=== PATIENT | female | born 1975 | race Caucasian/White ===

== ENCOUNTER → 2021-04-19 | Outpatient (CLI) | payer OTHER ==
[~2021-04-19] MED LIST: ALBU0.084; ALPR2TAB6; AMPH1TAB78; DIAZ5TAB3; HYDR-2595; PROAIR HFA 90 MCG INHALER; TRAM50TA2
== END | disposition home or self-care (01) ==
LOC: LAB 11:57
PROVIDERS: ATTEND Physician Assistant
DX: Z20.822 Contact with and (suspected) exposure to COVID-19 (principal)
CPT/HCPCS: C9803; U0003

== ENCOUNTER 2025-05-25 18:16 | Inpatient (IN) | payer MEDICAID, OTHER ==
[~2025-05-25] VITALS: Ht 165.1 cm; Wt 38.5 kg
[~2025-05-25 18:16] MED LIST changes: -AMPH1TAB78; +[UNRECOGNIZED DRUG - CODE]
--- NOTE | 2025-05-25 18:27 | ED.PDOC ---
Altered Mental Status HPI Comments HPI: Poor Historian. 30-year-old homeless female brought in by ambulance. Some good Anabaptism found the patient asleep in a small wagon. He called 911. The ekg monitor was at the scene found the patient to be altered and naked and covered in feces. Ambulance brought her here for further evaluation. Patient is not cooperative and is not answering most of our questions. Patient however is moving all four extremities and sometimes follows commands. Patient has very poor hygiene and is covered in feces and completely naked. Past Medical History: Unknown Past Surgical History: Unknown REVIEW OF SYSTEMS: Limited given the patient's altered mental status. CONSTITUTIONAL: Denies acute: fever, diaphoresis, chills, HEAD: Denies acute: headache, photophobia Eyes: Denies acute: Double vision, vision loss, eye pain, eye discharge. EARS: Denies acute: tinnitus, hearing loss, ear discharge, ear pain, THROAT: Denies acute: sore throat, swelling, difficulty swallowing , pain with swallowing, change in voice. NECK: Denies acute: neck pain, neck swelling, stiff neck. HEART: Denies acute : chest pain, palpitations, LUNGS: Denies acute: SOB, wheezing, cough, hemoptysis ABDOMEN: Denies acute: abdominal pain, Nausea, Vomiting, diarrhea, melena , hematemesis, hematochezia SKIN: Denies acute: rash, redness, lesions, itchiness. EXTREMITIES: Denies acute: calf pain, numbness, tingling, weakness, denies pain in extremity. Denies acute: Low back pain. Neuro: Denies acute: focal neurological deficit, motor or sensory focal neurological deficit, tremors, seizure like activity, loss of bowel or bladder function, cauda equina like symptoms. : Denies acute: dysuria, hematuria, flank pain, increase in urinary frequency. PSYCH: Denies acute: hallucination, suicidal ideation, homicidal ideation. FEMALE: Denies acute: abnormal vaginal bleeding, foul odor, unusual discharge. PHYSICAL EXAM: General: -----mild to moderate---acute distress, awake and alert. Head: normocephalic, atraumatic. Neck: supple, trachea is midline, no swelling. Throat: Normal phonation. Eyes:, no erythema, no purulent discharge, no proptosis, no icterus. Heart: regular rate, regular rhythm, no significant murmur appreciated. Lungs: no apparent respiratory distress, No wheezing, no rhonchi, no crackles. No stridors Clear to auscultation bilaterally. Abdomen: non tender to palpation, non distended, soft, no guarding, no rebound, + bowel sounds. Neuro: Awake, Alert, oriented to name, self, situation, follows commands GCS=15. Speech is normal. Skin: no petechia, no purpura, no cyanosis, non-pale, not jaundice. Lower extremities: --no - Pitting edema no deformity, no focal swelling, no calf TTP. Makes eye contact. moves all four extremities. Face: no apparent facial droop. No nuchal rigidity, Kernig's sign, Brudzinski's sign, no meningeal signs. ED COURSE: DISCLAIMER: This medical document was created using an electronic medical record system with voice recognition software and computerized dictation system. Although this document has been carefully reviewed, there might still be some phonetic and typographical errors. Occasional wrong-word or "sound-alike" substitutions may have occurred due to the inherent limitations of voice recognition software. These areas are purely typographical due to imperfections of the software programs and do not reflect any compromise in the patient's medical care. Please read the chart carefully and recognize, using context, where these substitutions have occurred. Time Seen by MD: 18:26 Reviewed Notes: Medications, Allergies Allergies: Coded Allergies: Ibuprofen (Verified Allergy, Mild, SWELLING, 11/11/12) Home Meds Reported Medications [Albuterol Sul0.083 %] (Albuterol Sulfate) 0.083 % NEB No Conflict Check, % 11/11/12 [Tramadol Hcl50 Mg] (Tramadol Hcl) 50 MG TAB No Conflict Check, MG 11/11/12 [Proair Hfa 90 Mcg Inhaler] No Conflict Check 11/11/12 [Diazepam5 Mg] (Diazepam) 5 MG TAB No Conflict Check, MG 11/11/12 [Hydrocodone/Ace1 Tab] (Hydrocodone/Acetaminophen) 1 TAB TAB No Conflict Check, TAB 1/29/13 [Alprazolam2 Mg] (Alprazolam) 2 MG TAB No Conflict Check, MG 11/11/12 [Amphetamine/Dex30 Mg] (Amphetamine/Dextroampheta) 30 MG TAB No Conflict Check, MG 11/11/12 Information Source: Patient, Emergency Med Personnel Mode of Arrival: EMS Past Medical History PAST MEDICAL HISTORY: Unknown Surgical History: Unknown 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 Was a procedure done?: No Differential Diagnosis (ALOC) Differential Diagnosis: Other (DDX include CVA, TGA, cerebellar ischemia/infarct, carotid stenosis, Intracranial mass/infection/bleed, encephalopathy, electrolyte abnormality, thyroid disease, hydrocephalus, hypoglycemia, drug toxicity, cardiac arrhythmia, seizure, infection in the elder ly, Hyperammonemia., kidney failure., sepsis.) X-Ray, Labs, Meds, VS Vital Signs Date Time Temp Pulse Resp B/P (MAP) Pulse Ox O2 Delivery O2 Flow Rate FiO2 05/26/25 03:00 120 139/80 (99) 91 05/26/25 02:30 133 166/94 (118) 97 05/26/25 01:30 156/98 (117) 05/25/25 23:20 72 18 93/46 (62) 98 05/25/25 22:00 77 19 97/52 (67) 05/25/25 20:30 100.3 94 19 104/54 (71) 98 100.3 05/25/25 19:30 Room Air* 0 21 05/25/25 18:22 98.1 99 18 142/93 98 98.1 Lab Test 05/25/25 22:00 05/25/25 19:48 05/25/25 18:38 05/25/25 16:45 Range/Units Stool for White Cells None seen Troponin I High Sensitivity < 3 L < 3 L </=34 ng/L White Blood Count 8.0 4.4-10.8 10^3/uL Red Blood Count 4.68 4.0-5.20 10^6/uL Hemoglobin 12.9 12.2-16.2 g/dL Hematocrit 39.4 36.0-46.0 % Mean Corpuscular Volume 84.1 80.0-100.0 fL Mean Corpuscular Hemoglobin 27.4 L 28.0-32.0 pg Mean Corpuscular Hemoglobin Concent 32.6 32.0-36.0 g/dL Red Cell Distribution Width 16.2 H 11.8-14.3 % Platelet Count 518 H 140-450 10^3/uL Mean Platelet Volume 6.9 6.9-10.8 fL Neutrophils (%) (Auto) 73.8 37.0-80.0 % Lymphocytes (%) (Auto) 22.3 10.0-50.0 % Monocytes (%) (Auto) 2.5 0.0-12.0 % Eosinophils (%) (Auto) 0.1 0.0-7.0 % Basophils (%) (Auto) 1.3 0.0-2.0 % Neutrophils # (Auto) 5.9 1.6-8.6 10 ^3/uL Lymphocytes # (Auto) 1.8 0.4-5.4 10 ^3/uL Monocytes # (Auto) 0.2 0-1.3 10 ^3/uL Eosinophils # (Auto) 0 0-0.8 10 ^3/uL Basophils # (Auto) 0.1 0-0.2 10 ^3/uL Nucleated Red Blood Cells 0.1 % Sodium Level 144 136-145 mmol/L Potassium Level 3.3 L 3.5-5.1 mmol/L Chloride Level 108 H 98-107 mmol/L Carbon Dioxide Level 27 20-31 mmol/L Anion Gap 9 5-15 Blood Urea Nitrogen 7 L 9-23 mg/dL Creatinine 0.61 0.550-1.02 mg/dL Glomerular Filtration Rate Calc 123 >90 mL/min BUN/Creatinine Ratio 11.5 10.0-20.0 Serum Glucose 111 H 74-106 mg/dL Calcium Level 9.9 8.7-10.4 mg/dL Magnesium Level 2.0 1.6-2.6 mg/dL Total Bilirubin 0.5 0.2-1.0 mg/dL Aspartate Amino Transferase (AST) 12 L 13-40 U/L Alanine Aminotransferase (ALT) 10 7-40 U/L Alkaline Phosphatase 129 H 46-116 U/L Creatine Kinase 63 34-145 U/L Total Protein 7.4 5.7-8.2 g/dL Albumin 4.3 3.2-4.8 g/dL Lipase 61 H 12-53 U/L Beta HCG, Quantitative 0.6 L 1.5-4.2 mIU/mL Salicylates Level < 3.0 -30 mg/dL Acetaminophen Level < 2.0 L 10.0-20.0 UG/ML Plasma/Serum Blood Alcohol < 3.0 <10 mg/dL Lactic Acid Level 1.0 0.4-2.0 mmol/L Ammonia 17 11-32 umol/L Microbiology Date/Time Source Procedure Growth Status 05/25/25 22:00 Stool Stool Culture - Preliminary Resulted 05/25/25 22:00 Stool Shiga Toxin I & II - Final Resulted 05/25/25 22:00 Stool Clostridium difficile Toxin Assay - Final Resulted [place] [address] Ph: [phone] DIAGNOSTIC IMAGING Diagnostic Imaging Report : [id number] Signed PATIENT: JAMI MACHADO ACCT: [id number] UNIT: [id number] : 1975 LOC: [facility] ROOM / BED: [address] [place] [address] A AGE / SEX: 50 / F ADM STATUS: ADM IN SERVICE 21 ORDERING PHYSICIAN: DASHAWN EPSTEIN DO PROCEDURE(s): HWOCT - HEAD WITHOUT CONTRAST REASON: ALOC, DIARRHEA, ORDER NUMBER(s): [id number], ACCESSION NUMBER(s): [id number] COMPUTERIZED TOMOGRAPHY OF THE HEAD WITHOUT CONTRAST REASON FOR STUDY: ALOC, DIARRHEA, COMPARISON: None TECHNIQUE: Helical tomographic scans were obtained through the brain. 2-D coronal and sagittal reformatted images are provided. Radiation optimization: All CT scans at this facility use at least one of these dose optimization techniques: Automated exposure control mA and/or kV adjustment per patient size (includes targeted exams where dose is matched to clinical indication) or iterative reconstruction. RADIATION DOSE: CTDI: 52.72 mGy DLP: 1786 mGy-cm FINDINGS: Images are degraded by severe motion artifact. The patient would not hold still despite medication. No suspicious intracranial hyperdensity to suggest acute blood. There is no mass effect nor midline shift. There is no hydrocephalus. The suprasellar cistern is intact. The calvarium is intact. The visualized mastoid air cells and paranasal sinuses are clear. IMPRESSION: No acute intracranial abnormality within the limitations of severe motion artifact.. ATED BY: MARIO MOORE MD DICTATED DATE/TIME: 05/25/252337 SIGNED BY: MARIO MOORE MD SIGNED DATE/TIME: 05/25/252337 CC: Time of 1ST Reevaluation: 19:00 Reevaluation 1ST: Unchanged Patient Education/Counseling: Diagnosis, Treatment Family Education/Counseling: No Family Present Comments Patient has not been cooperative. Patient was given Ativan 2 mg. Patient refused IV fluids. Patient is still acting bizarre. After the staff has cleaned her from her poop. Patient had another episode of loose watery brown diarrhea and Peed again in the bed. Stool was sent for analysis. I placed the patient up for admission for further evaluation and treatment. We were able to obtain a CT scan of the head but patient was moving too much and could not get a CT scan of the abdomen and pelvis despite Ativan given. Isn't antibiotics were ordered as well. Patient is not cooperative with the IV access. Patient was admitted to the hospital for further evaluation and treatment of her presentation. Departure 1 Departure Time of Disposition: 22:08 Impression: Primary Impression: Altered mental status Additional Impressions: Diarrhea Homelessness Fentanyl use disorder, moderate Methamphetamine abuse UTI (urinary tract infection) Disposition: ADMITTED INPATIENT Admit to: Tele Condition: Guarded Discharged With: Self Critical Care Note Critical Care Time?: Yes (1 hr-critical care time only) I personally scribed for DASHAWN EPSTEIN DO ([email or web address]) on 05/25/25 at 18:27. Electronically submitted by Skip Tello ([email or web address]). DASHAWN EPSTEIN DO May 25, 2025 18:27
[2025-05-25 19:11] LABS: Hematocrit 39.4 % (36.0-46.0); Hemoglobin 12.9 g/dL (12.2-16.2); Mean Corpuscular Hemoglobin 27.4 pg (28.0-32.0); Mean Corpuscular Volume 84.1 fL (80.0-100.0); Nucleated Red Blood Cells % 0.1 %
[2025-05-25 19:34] LABS: Acetaminophen < 2.0 UG/ML (10.0-20.0); Salicylate < 3.0 mg/dL (-30)
[2025-05-25 19:41] LABS: Alanine Aminotransferase 10 U/L (7-40); Albumin 4.3 g/dL (3.2-4.8); Anion Gap 9 (5-15); BUN/Creatinine Ratio 11.5 (10.0-20.0); Calcium 9.9 mg/dL (8.7-10.4); Carbon Dioxide 27 mmol/L (20-31); Creatine Kinase IFCC 63 U/L (34-145); Magnesium 2.0 mg/dL (1.6-2.6); Sodium 144 mmol/L (136-145); Total Protein 7.4 g/dL (5.7-8.2)
[2025-05-25 19:42] LABS: Alkaline Phosphatase 129 U/L (46-116); Bilirubin, Total 0.5 mg/dL (0.2-1.0); Blood Urea Nitrogen 7 mg/dL (9-23); Chloride 108 mmol/L (98-107); Glucose 111 mg/dL (74-106); Potassium 3.3 mmol/L (3.5-5.1)
[2025-05-25 19:57] LABS: Lipase 61 U/L (12-53)
[2025-05-25] MEDS: LORazepam 2MG/ML-1ML VIAL IM ONE ×2 (21:30→23:10)
[2025-05-25] MEDS: LORazepam 2MG/ML-1ML VIAL ONE (21:36)
--- NOTE | 2025-05-25 23:41 | DVH ---
COMPUTERIZED TOMOGRAPHY OF THE HEAD WITHOUT CONTRAST REASON FOR STUDY: ALOC, DIARRHEA, COMPARISON: None TECHNIQUE: Helical tomographic scans were obtained through the brain. 2-D coronal and sagittal refor matted images are provided. Radiation optimization: All CT scans at this facility use at least one of these dose optimization techniques: Automated exposure control mA and/or kV adjustment per patient s ize (includes targeted exams where dose is matched to clinical indication) or iterative reconstructio n. RADIATION DOSE: CTDI: 52.72 mGy DLP: 1786 mGy-cm FINDINGS: Images are degraded by severe motion artifact. The patient would not hold still despite med ication. No suspicious intracranial hyperdensity to suggest acute blood. There is no mass effect nor midline shift. There is no hydrocephalus. The suprasellar cistern is intact. The calvarium is intact. The vis ualized mastoid air cells and paranasal sinuses are clear. IMPRESSION: No acute intracranial abnormality within the limitations of severe motion artifact..
[2025-05-26] MEDS: HALOPERIDOL LACTATE 5 MG/ML INJ VIAL IM ONE (00:04)
[2025-05-26] MEDS: HALOPERIDOL LACTATE 5 MG/ML INJ VIAL ONE (00:05)
[2025-05-26] MEDS: SODIUM CHLORIDE 0.9% 1,000 ML IV ONE ×2 (02:08→04:01)
[2025-05-26] MEDS: LORazepam 2MG/ML-1ML VIAL IV ONE (03:00)
[2025-05-26] MEDS ORDERED: MORPHINE SULFATE INJ 2 MG/ml SYRG IV PRN (03:45)
[2025-05-26] MEDS ORDERED: NITROGLYCERIN 0.4 MG SL TAB SL PRN (03:45)
--- NOTE | 2025-05-26 03:49 | DVHHP2 ---
History of Present Illness Reason for Visit: Altered mental status History of Present Illness 30-year-old female presents for evaluation of altered mental status. Patient was seen sleeping out in the sun by bystanders and EMS was called. Since arrival patient has been noncooperative and not answering questions. No family at bedside to provide further history. Past Medical History Unknown Past Surgical History Unknown Family History Unknown Smoke: No ALCOHOL: none Drugs: None Lives: Homeless Review of Systems Review of Systems Unable to complete review of systems due to patient's altered mental status. Allergies: Coded Allergies: UNOBTAINABLE (Unverified , 05/25/25) Medications Current Medications Medications Dose Ordered Sig/Eli Route Start Time Stop Time Status Last Admin Dose Admin Ceftriaxone Sodium 50 ml @ 100 mls/hr DAILY@09 IV 05/26/25 09:00 UNV Ondansetron HCl 4 mg Q4HP PRN IV 05/26/25 03:45 UNV Nitroglycerin 0.4 mg Q5MINP PRN SL 05/26/25 03:45 UNV Morphine Sulfate 2 mg Q30M PRN IV 05/26/25 03:45 UNV Exam Vital Signs Vital Signs Date Time Temp Pulse Resp B/P (MAP) Pulse Ox O2 Delivery O2 Flow Rate FiO2 05/25/25 19:30 Room Air* 0 21 05/25/25 18:22 98.1 99 18 142/93 98 98.1 Exam Gen: 30-year-old female in moderate distress, cachectic Skin: Warm, dry, normal color and texture, no rash. HEENT: Normocephalic atraumatic, mucous membranes moist and pink. Neck: Cervical and supraclavicular nodes normal without enlargement, trachea is midline, thyroid gland is normal without masses. Pulmonary: Clear to auscultation and percussion bilaterally. Cardiac: Regular rate and rhythm. No murmur Abdomen: Soft, nontender, nondistended, bowel sounds present all 4 quadrants, no guarding, no rigidity, no organomegaly. Extremities: No cyanosis, clubbing, no edema Neuro: Altered Labs/Xrays ORDERING PHYSICIAN: DASHAWN EPSTEIN DO PROCEDURE(s): HWOCT - HEAD WITHOUT CONTRAST REASON: ALOC, DIARRHEA, ORDER NUMBER(s): [id number], ACCESSION NUMBER(s): [id number] COMPUTERIZED TOMOGRAPHY OF THE HEAD WITHOUT CONTRAST REASON FOR STUDY: ALOC, DIARRHEA, COMPARISON: None TECHNIQUE: Helical tomographic scans were obtained through the brain. 2-D coronal and sagittal reformatted images are provided. Radiation optimization: All CT scans at this facility use at least one of these dose optimization techniques: Automated exposure control mA and/or kV adjustment per patient size (includes targeted exams where dose is matched to clinical indication) or iterative reconstruction. RADIATION DOSE: CTDI: 52.72 mGy DLP: 1786 mGy-cm FINDINGS: Images are degraded by severe motion artifact. The patient would not hold still despite medication. No suspicious intracranial hyperdensity to suggest acute blood. There is no mass effect nor midline shift. There is no hydrocephalus. The suprasellar cistern is intact. The calvarium is intact. The visualized mastoid air cells and paranasal sinuses are clear. IMPRESSION: No acute intracranial abnormality within the limitations of severe motion ar tifact.. P Labs Test 05/25/25 22:00 05/25/25 19:48 05/25/25 18:38 05/25/25 16:45 Range/Units Stool for White Cells None seen Troponin I High Sensitivity < 3 L </=34 ng/L White Blood Count 8.0 4.4-10.8 10^3/uL Red Blood Count 4.68 4.0-5.20 10^6/uL Hemoglobin 12.9 12.2-16.2 g/dL Hematocrit 39.4 36.0-46.0 % Mean Corpuscular Volume 84.1 80.0-100.0 fL Mean Corpuscular Hemoglobin 27.4 L 28.0-32.0 pg Mean Corpuscular Hemoglobin Concent 32.6 32.0-36.0 g/dL Red Cell Distribution Width 16.2 H 11.8-14.3 % Platelet Count 518 H 140-450 10^3/uL Mean Platelet Volume 6.9 6.9-10.8 fL Neutrophils (%) (Auto) 73.8 37.0-80.0 % Lymphocytes (%) (Auto) 22.3 10.0-50.0 % Monocytes (%) (Auto) 2.5 0.0-12.0 % Eosinophils (%) (Auto) 0.1 0.0-7.0 % Basophils (%) (Auto) 1.3 0.0-2.0 % Neutrophils # (Auto) 5.9 1.6-8.6 10 ^3/uL Lymphocytes # (Auto) 1.8 0.4-5.4 10 ^3/uL Monocytes # (Auto) 0.2 0-1.3 10 ^3/uL Eosinophils # (Auto) 0 0-0.8 10 ^3/uL Basophils # (Auto) 0.1 0-0.2 10 ^3/uL Nucleated Red Blood Cells 0.1 % Sodium Level 144 136-145 mmol/L Potassium Level 3.3 L 3.5-5.1 mmol/L Chloride Level 108 H 98-107 mmol/L Carbon Dioxide Level 27 20-31 mmol/L Anion Gap 9 5-15 Blood Urea Nitrogen 7 L 9-23 mg/dL Creatinine 0.61 0.550-1.02 mg/dL Glomerular Filtration Rate Calc 123 >90 mL/min BUN/Creatinine Ratio 11.5 10.0-20.0 Serum Glucose 111 H 74-106 mg/dL Calcium Level 9.9 8.7-10.4 mg/dL Magnesium Level 2.0 1.6-2.6 mg/dL Total Bilirubin 0.5 0.2-1.0 mg/dL Aspartate Amino Transferase (AST) 12 L 13-40 U/L Alanine Aminotransferase (ALT) 10 7-40 U/L Alkaline Phosphatase 129 H 46-116 U/L Creatine Kinase 63 34-145 U/L Total Protein 7.4 5.7-8.2 g/dL Albumin 4.3 3.2-4.8 g/dL Lipase 61 H 12-53 U/L Beta HCG, Quantitative 0.6 L 1.5-4.2 mIU/mL Salicylates Level < 3.0 -30 mg/dL Acetaminophen Level < 2.0 L 10.0-20.0 UG/ML Plasma/Serum Blood Alcohol < 3.0 <10 mg/dL Lactic Acid Level 1.0 0.4-2.0 mmol/L Ammonia 17 11-32 umol/L SEPSIS Sepsis Screen Date sepsis recognized/suspect: May 25, 2025 Time Sepsis recognized/suspect: 1821 Recent Procedure: No On Antibiotic Therapy: No Respiratory Rate >20: No Heart Rate >90: Yes Temp<36 C (96.8 F) or >38.3 C: No SBP <90 or MAP <65 mmHG: No New Acute Mental Status Change: No Is the patient on CPAP, BIPAP,: No Physician Orders Ova & Parasite Exam (05/25/25 21:54) Stool Bacterial Culture (05/25/25 21:54) Clostridium Difficile Toxin (05/25/25 21:54) Communication Order (05/25/25 23:00) Drug Screen (05/26/25 03:43) Urinalysis (05/26/25 03:43) Ceftriaxone 1gm/50ml D5w (Rocephin) (05/26/25 09:00) Sodium Chloride 0.9% (05/26/25 03:45) Basic Metabolic Panel (05/27/25 04:00) Admit (05/26/25 03:43) Ondansetron Hcl (Zofran) (05/26/25 03:45) Complete Blood Count (05/27/25 04:00) Comprehensive Metabolic Panel (05/27/25 04:00) Cardiac Diet-2gna,Lofat,Lochol (05/26/25 Breakfast) Condition: Fair (05/26/25 03:43) Maintain Bed Rest (05/26/25 03:43) Nitroglycerin Sublingual (Ntrostat Subli (05/26/25 03:45) Morphine Sulfate Injection (05/26/25 03:45) Stat Ekg For Chest Pain (05/26/25 03:43) Notify Md Of Changes From Base (05/26/25 03:43) Roll Forming Supervisor For 24 Hours (05/26/25 03:43) Emergency Dysrhythmia Protocol (05/26/25 03:43) Rhythm Strips Once Every Shift (05/26/25 03:43) Oxygen By Nasal Cannula (05/26/25 03:43) Laboratory Tests Test 05/25/25 16:45 05/25/25 18:38 Lactic Acid Level 1.0 mmol/L (0.4-2.0) White Blood Count 8.0 10^3/uL (4.4-10.8) Medications Medications Dose Ordered Sig/Eli Route Start Time Stop Time Status Last Admin Dose Admin Ceftriaxone Sodium 50 ml @ 100 mls/hr ONCE ONCE IV 05/25/25 18:30 05/25/25 18:59 DC 05/26/25 00:27 100 MLS/HR Haloperidol Lactate 5 mg ONCE ONCE IM 05/26/25 00:00 05/26/25 00:01 DC 05/26/25 00:04 5 MG Lorazepam 2 mg ONCE ONCE IM 05/25/25 21:30 05/25/25 21:32 DC 05/25/25 21:30 2 MG Lorazepam 2 mg ONCE ONCE IM 05/25/25 23:00 05/25/25 23:01 DC 05/25/25 23:10 2 MG Sodium Chloride 1,000 ml @ 1,000 mls/hr Q1H ONCE IV 05/25/25 18:30 05/25/25 19:29 DC 05/26/25 02:08 1,000 MLS/HR Assessment/Plan Assessment/Plan Assessment ? Toxic encephalopathy Diarrhea Cachexia Plan Admit the patient to telemetry to the hospitalist CT abdomen and pelvis pending Chest x-ray pending Maintenance IV fluids Rocephin Blood cultures pending Continue treatment per orders. Plan discussed with: Other My Orders Orders - SILVINA PRESSLEY Procedure Category Date Status Time Communication Order ORDERS 05/25/25 Transmitted 23:00 Drug Screen LAB 05/26/25 Logged 03:43 Urinalysis LAB 05/26/25 Logged 03:43 Ceftriaxone 1gm/50ml PHA 05/26/25 Logged D5w (Rocephin) 09:00 Sodium Chloride 0.9% PHA 05/26/25 Logged 03:45 Basic Metabolic Panel LAB 05/27/25 Verified 04:00 Admit ADMIT 05/26/25 Transmitted 03:43 Ondansetron Hcl PHA 05/26/25 Logged (Zofran) 03:45 Complete Blood Count LAB 05/27/25 Verified 04:00 Comprehensive LAB 05/27/25 Verified Metabolic Panel 04:00 Cardiac DIET 05/26/25 Transmitted Diet-2gna,Lofat,Lochol Breakfast Condition: Fair JOSE CRUZ 05/26/25 Transmitted 03:43 Maintain Bed Rest JOSE CRUZ 05/26/25 Transmitted 03:43 Nitroglycerin PHA 05/26/25 Logged Sublingual (Ntrostat 03:45 Morphine Sulfate PHA 05/26/25 Logged Injection 03:45 Stat Ekg For Chest JOSE CRUZ 05/26/25 Transmitted Pain 03:43 Notify Md Of Changes JOSE CRUZ 05/26/25 Transmitted From Base 03:43 Roll Forming Supervisor For [facility] 05/26/25 Transmitted 24 Hours 03:43 Emergency Dysrhythmia [facility] 05/26/25 Transmitted Protocol 03:43 Rhythm Strips Once [facility] 05/26/25 Transmitted Every Shift 03:43 Oxygen By Nasal RT 05/26/25 Transmitted Cannula 03:43 Date of Service: May 26, 2025 Billing Provider: SILVINA PRESSLEY Common Visit Codes: [id number] INP/OBS CARE (HIGH) SILVINA PRESSLEY May 26, 2025 03:49
[2025-05-26 07:40] VITALS: PULSE 88; RESP 22; O2SAT 98
--- NOTE | 2025-05-26 07:53 | DVH ---
CHEST RADIOGRAPH Indication: ALOC, DIARRHEA, Technique: Single frontal view of the chest was obtained COMPARISON: None FINDINGS: Lines and Tubes: None Lungs: Clear Pleura: No effusion. No pneumothorax. Cardiomediastinal contours: Unremarkable Bones: Unremarkable IMPRESSION: No acute disease.
--- NOTE | 2025-05-26 08:14 | DVH ---
Exam: CT CT AB PEL WO CON-NO ORAL OR IV History: ALOC, DIARRHEA, Comparison Study: None Technique: Multidetector spiral CT of the abdomen and pelvis was performed from lung bases to pubic symphysis. Imaging was performed without IV contrast. Axial, coronal and sagittal multiplanar reform ats were obtained from the axial data set by the technologist. Radiation dose : Abdomen/Pelvis: CTDIvol 13.38 mGy, DLP 652.73 mGy*cm. Findings: Limited by motion and arms overlying the abdomen. Evaluation of solid organs is limited due to lack of intravenous contrast use. Lung Bases: No acute or significant lung base finding. Normal heart size. No pleural or pericardial effusion. Liver: Grossly unremarkable. Gallbladder and biliary Tree: Gallbladder is not well seen. Spleen: Grossly unremarkable. Pancreas: Pancreas is not well seen. Adrenal Glands: No definite nodule. Kidneys: Right lower pole renal calculus. No definite hydronephrosis. Bladder: Grossly unremarkable for degree of distention. Bowel: Gaseous distention of the stomach. Small bowel loops appear dilated although evaluation is will y limited. Appendix is not identified. Ascites: Small amount of free fluid in the pelvis. Lymphadenopathy: No definite lymphadenopathy. Abdominal wall and Mesentery: No definite free air. Vasculature: The visualized abdominal aorta is normal in size and caliber. Evaluation of abdominal a nd pelvic vessels is limited due to lack of intravenous contrast. Pelvic Organs: Grossly unremarkable Musculoskeletal: Scoliosis. Advanced degenerative changes of the bilateral hips. IMPRESSION: 1. Very limited, nearly nondiagnostic exam. Most organs are not well appreciated. Bowel loops appear distended. Suspect some level of bowel obstruction. Consider follow-up exam with oral contrast. Clini frandy correlation and continued follow-up is recommended. 2. Right renal calculus. Free fluid in the pelvis. Scoliosis. Advanced degenerative changes of the h ips. Radiation optimization: All CT scans at this facility use at least one of these dose optimization brett hniques: Automated exposure control mA and/or kV adjustment per patient size (includes targeted exams where dose is matched to clinical indication) or iterative reconstruction. HS:Y
[2025-05-26 10:02] LABS: Urine Amorphous Crystal FEW /hpf (None Seen); Urine Protein, UAD Negative (Negative)
[2025-05-26 10:14] LABS: Amphetamine Screen, Urine Pos (NEGATIVE); Barbiturate Scree,Urine Neg (NEGATIVE); Benzodiazephine Screen, Urine Neg (NEGATIVE); Cannabinoid Screen, Urine Neg (NEGATIVE); Cocaine Screen, Urine Neg (NEGATIVE); Opiate Scree,Urine Neg (NEGATIVE); Phencyclidine Screen, Urine Neg (NEGATIVE)
[2025-05-26 10:54] VITALS: PULSE 99; RESP 17; O2SAT 97
[2025-05-26 12:03] LABS: Hematocrit 37.0 % (36.0-46.0); Hemoglobin 12.3 g/dL (12.2-16.2); Mean Corpuscular Hemoglobin 27.9 pg (28.0-32.0); Mean Corpuscular Volume 84.0 fL (80.0-100.0); Nucleated Red Blood Cells % 0.0 %
[2025-05-26 12:12] LABS: Sodium 143 mmol/L (136-145)
[2025-05-26 12:13] LABS: Anion Gap 11 (5-15); Carbon Dioxide 23 mmol/L (20-31)
[2025-05-26 12:14] LABS: Calcium 9.5 mg/dL (8.7-10.4); Chloride 109 mmol/L (98-107); Potassium 3.0 mmol/L (3.5-5.1)
[2025-05-26 12:18] LABS: BUN/Creatinine Ratio 16.7 (10.0-20.0); Blood Urea Nitrogen 9 mg/dL (9-23)
[2025-05-26 12:21] LABS: Glucose 115 mg/dL (74-106)
--- NOTE | 2025-05-26 15:16 | DVHPN2 ---
Subjective I am assuming the care of the patient from today onwards. Patient remains altered. Patient's urinary drug screen came back positive for amphetamine as well as fentanyl. Currently patient does not follow commands. 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 Medications Current Medications Medications Dose Ordered Sig/Eli Route Start Time Stop Time Status Last Admin Dose Admin Ceftriaxone Sodium 50 ml @ 100 mls/hr DAILY@0100 IV 05/27/25 01:00 Ondansetron HCl 4 mg Q4HP PRN IV 05/26/25 03:45 Nitroglycerin 0.4 mg Q5MINP PRN SL 05/26/25 03:45 Morphine Sulfate 2 mg Q30M PRN IV 05/26/25 03:45 Hydralazine HCl 10 mg Q6HP PRN IV 05/26/25 09:45 Laboratory Results Laboratory Tests 05/26/25 11:48 Chemistry Test 05/25/25 18:38 05/26/25 11:48 Albumin 4.3 g/dL (3.2-4.8) Calcium Level 9.9 mg/dL (8.7-10.4) 9.5 mg/dL (8.7-10.4) Magnesium Level 2.0 mg/dL (1.6-2.6) Total Protein 7.4 g/dL (5.7-8.2) Lipid panel Test 05/25/25 18:38 Lipase 61 U/L (12-53) H LFT Test 05/25/25 18:38 Alanine Aminotransferase (ALT) 10 U/L (7-40) Alkaline Phosphatase 129 U/L (46-116) H Aspartate Amino Transferase (AST) 12 U/L (13-40) L Total Bilirubin 0.5 mg/dL (0.2-1.0) Urinalysis Test 05/26/25 09:35 Urine Color Light-yellow (Yellow) Urine Clarity Turbid (Clear) H Urine pH 7.0 (5.0-9.0) Urine Specific [place] 1.017 (1.001-1.035) Urine Protein Negative (Negative) Urine Ketones Negative (Negative) Urine Blood Negative /uL (Negative) Urine Nitrite Negative (Negative) Urine Bilirubin Negative (Negative) Urine Urobilinogen Normal mg/dL (Negative) Urine Leukocyte Esterase Negative /uL (Negative) Urine RBC 2 /hpf (0 - 4) Urine Microscopic WBC 2 /HPF (0-5) Urine Squamous Epithelial Cells Few /hpf (<5) Urine Amorphous Crystals Few /hpf (None Seen) Urine Bacteria Few /hpf (None Seen) H Urine Glucose Normal mg/dL (Normal) Microbiology Microbiology Date/Time Source Procedure Growth Status 05/25/25 22:00 Stool Stool Culture - Preliminary Resulted 05/25/25 22:00 Stool Shiga Toxin I & II - Final Resulted 05/25/25 22:00 Stool Clostridium difficile Toxin Assay - Final Resulted Assessment/Plan Assessment/Plan 50-year-old female who was brought in by paramedics as she was sleeping on the side of the street found to have 1. Acute toxic encephalopathy 2. Illicit drug use with a positive urinary drug screen 3. Hypokalemia 4. Diarrhea rule out C diff 5. Homeless -social economist consultation, check stool for C diff, replace electrolytes Plan discussed with: Other (Patient's bedside RN.) My Orders Orders - SACHA CAMPUZANO MD Procedure Category Date Status Time Npo (Nothing By DIET 05/26/25 Transmitted Mouth) Diet Lunch Pt Request For Service PT 05/26/25 Logged 11:14 Date of Service: May 26, 2025 Billing Provider: SACHA CAMPUZANO MD Common Visit Codes: [id number] INP/OBS CARE(MOD) SACHA CAMPUZANO MD May 26, 2025 15:16
[2025-05-26] MEDS: POTASSIUM CHL 20MEQ/100ML 100 ML IV SCH (15:47)
[2025-05-26 22:57] VITALS: BP 154/97; PULSE 78; RESP 20; TEMP 97.6; O2SAT 96
[2025-05-27] VITALS (9 sets, daily range): BP systolic 136–156; BP diastolic 91–108; PULSE 73–109; RESP 18–20; TEMP 97.4–98; O2SAT 95–99
[2025-05-27] MEDS: hydrALAZINE HCL 20 MG/ML VL IV PRN (05:04)
[2025-05-27 07:02] LABS: Alanine Aminotransferase 12 U/L (7-40); Albumin 4.1 g/dL (3.2-4.8); Anion Gap 15 (5-15); BUN/Creatinine Ratio 23.5 (10.0-20.0); Bilirubin, Total 0.6 mg/dL (0.2-1.0); Blood Urea Nitrogen 12 mg/dL (9-23); Calcium 9.5 mg/dL (8.7-10.4); Carbon Dioxide 20 mmol/L (20-31); Glucose 89 mg/dL (74-106); Magnesium 1.8 mg/dL (1.6-2.6); Sodium 142 mmol/L (136-145); Total Protein 7.0 g/dL (5.7-8.2)
[2025-05-27 07:10] LABS: Alkaline Phosphatase 125 U/L (46-116); Chloride 107 mmol/L (98-107); Potassium 3.0 mmol/L (3.5-5.1)
[2025-05-27 07:16] LABS: Hemoglobin 13.6 g/dL (12.2-16.2); Nucleated Red Blood Cells % 0.1 %
[2025-05-27 07:18] LABS: Hematocrit 40.5 % (36.0-46.0); Mean Corpuscular Hemoglobin 28.3 pg (28.0-32.0); Mean Corpuscular Volume 84.4 fL (80.0-100.0)
--- NOTE | 2025-05-27 16:39 | DVHPN2 ---
Subjective Patient is more awake alert, requesting to eat. 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 Medications Current Medications Medications Dose Ordered Sig/Eli Route Start Time Stop Time Status Last Admin Dose Admin Ceftriaxone Sodium 50 ml @ 100 mls/hr DAILY@0100 IV 05/27/25 01:00 05/27/25 00:45 100 MLS/HR Ondansetron HCl 4 mg Q4HP PRN IV 05/26/25 03:45 Nitroglycerin 0.4 mg Q5MINP PRN SL 05/26/25 03:45 Morphine Sulfate 2 mg Q30M PRN IV 05/26/25 03:45 Hydralazine HCl 10 mg Q6HP PRN IV 05/26/25 09:45 05/27/25 05:04 10 MG Laboratory Results Laboratory Tests 05/27/25 06:15 Chemistry Test 05/27/25 06:15 Albumin 4.1 g/dL (3.2-4.8) Calcium Level 9.5 mg/dL (8.7-10.4) Magnesium Level 1.8 mg/dL (1.6-2.6) Total Protein 7.0 g/dL (5.7-8.2) LFT Test 05/27/25 06:15 Alanine Aminotransferase (ALT) 12 U/L (7-40) Alkaline Phosphatase 125 U/L (46-116) H Aspartate Amino Transferase (AST) 22 U/L (13-40) Total Bilirubin 0.6 mg/dL (0.2-1.0) Urinalysis Test 05/26/25 09:35 Urine Color Light-yellow (Yellow) Urine Clarity Turbid (Clear) H Urine pH 7.0 (5.0-9.0) Urine Specific [place] 1.017 (1.001-1.035) Urine Protein Negative (Negative) Urine Ketones Negative (Negative) Urine Blood Negative /uL (Negative) Urine Nitrite Negative (Negative) Urine Bilirubin Negative (Negative) Urine Urobilinogen Normal mg/dL (Negative) Urine Leukocyte Esterase Negative /uL (Negative) Urine RBC 2 /hpf (0 - 4) Urine Microscopic WBC 2 /HPF (0-5) Urine Squamous Epithelial Cells Few /hpf (<5) Urine Amorphous Crystals Few /hpf (None Seen) Urine Bacteria Few /hpf (None Seen) H Urine Glucose Normal mg/dL (Normal) Microbiology Microbiology Date/Time Source Procedure Growth Status 05/25/25 22:00 Stool Stool Culture - Preliminary Resulted 05/25/25 22:00 Stool Shiga Toxin I & II - Final Resulted 05/25/25 22:00 Stool Clostridium difficile Toxin Assay - Final Resulted Assessment/Plan Assessment/Plan 50-year-old female who was brought in by paramedics as she was sleeping on the side of the street found to have 1. Acute toxic encephalopathy 2. Illicit drug use with a positive urinary drug screen 3. Hypokalemia 4. Diarrhea rule out C diff 5. Homeless -started regular diet. Replace electrolytes -social studies teacher consultation for disposition., check stool for C diffreplace electrolytes Plan discussed with: Patient My Orders Orders - SACHA CAMPUZANO MD Procedure Category Date Status Time * Wound Consult CONS 05/27/25 Transmitted * Photography Editor CONS 05/27/25 Transmitted Consult Potassium Chl PHA 05/27/25 In Process 20meq/100ml 15:00 * Photography Editor CONS 05/27/25 Transmitted Consult Magnesium LAB 05/28/25 Verified 04:00 B-Type Natriuretic LAB 05/28/25 Verified Peptide 04:00 Regular Diet DIET 05/27/25 Transmitted Dinner Apply Z-Guard JOSE CRUZ 05/27/25 In Process 15:22 * Dietary Consult CONS 05/27/25 Transmitted 15:23 Date of Service: May 27, 2025 Billing Provider: SACHA CAMPUZANO MD Common Visit Codes: [id number] INP/OBS CARE(MOD) SACHA CAMPUZANO MD May 27, 2025 16:39
[2025-05-27] MEDS: POTASSIUM CHL 20 Meq TABLET PO ONE (17:51)
[2025-05-27] MEDS: POTASSIUM CHL 20MEQ/100ML 100 ML IV ONE (17:55)
[2025-05-27] MEDS: ONDANSETRON HCL 4 MG/2 ML VIAL IV PRN (20:00)
[2025-05-28] VITALS (7 sets, daily range): BP systolic 126–142; BP diastolic 94–101; PULSE 80–104; RESP 16–20; TEMP 97.6–99.2; O2SAT 96–100
--- NOTE | 2025-05-28 16:32 | DVHPN2 ---
Subjective Patient is still very drowsy. 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 Medications Current Medications Medications Dose Ordered Sig/Eli Route Start Time Stop Time Status Last Admin Dose Admin Ceftriaxone Sodium 50 ml @ 100 mls/hr DAILY@0100 IV 05/27/25 01:00 05/27/25 23:57 100 MLS/HR Ondansetron HCl 4 mg Q4HP PRN IV 05/26/25 03:45 05/27/25 20:00 4 MG Nitroglycerin 0.4 mg Q5MINP PRN SL 05/26/25 03:45 Morphine Sulfate 2 mg Q30M PRN IV 05/26/25 03:45 Hydralazine HCl 10 mg Q6HP PRN IV 05/26/25 09:45 05/27/25 05:04 10 MG Laboratory Results Laboratory Tests 05/27/25 06:15 Chemistry Test 05/28/25 09:04 Magnesium Level 1.7 mg/dL (1.6-2.6) Cardiac Markers Test 05/28/25 09:04 B-Type Natriuretic Peptide 27.50 pg/mL (0-100) Urinalysis Test 05/26/25 09:35 Urine Color Light-yellow (Yellow) Urine Clarity Turbid (Clear) H Urine pH 7.0 (5.0-9.0) Urine Specific [place] 1.017 (1.001-1.035) Urine Protein Negative (Negative) Urine Ketones Negative (Negative) Urine Blood Negative /uL (Negative) Urine Nitrite Negative (Negative) Urine Bilirubin Negative (Negative) Urine Urobilinogen Normal mg/dL (Negative) Urine Leukocyte Esterase Negative /uL (Negative) Urine RBC 2 /hpf (0 - 4) Urine Microscopic WBC 2 /HPF (0-5) Urine Squamous Epithelial Cells Few /hpf (<5) Urine Amorphous Crystals Few /hpf (None Seen) Urine Bacteria Few /hpf (None Seen) H Urine Glucose Normal mg/dL (Normal) Microbiology Microbiology Date/Time Source Procedure Growth Status 05/25/25 22:00 Stool Stool Culture - Final Complete 05/25/25 22:00 Stool Shiga Toxin I & II - Final Complete 05/25/25 22:00 Stool Clostridium difficile Toxin Assay - Final Complete Assessment/Plan Assessment/Plan 50-year-old female who was brought in by paramedics as she was sleeping on the side of the street found to have 1. Acute toxic encephalopathy 2. Illicit drug use with a positive urinary drug screen 3. Hypokalemia 4. Diarrhea rule out C diff 5. Homeless -started regular diet. Replace electrolytes -social work nurse consultation for disposition., check stool for C diff Plan discussed with: Patient Date of Service: May 28, 2025 Billing Provider: SACHA CAMPUZANO MD Common Visit Codes: [id number] INP/OBS CARE(MOD) SACHA CAMPUZANO MD May 28, 2025 16:32
[2025-05-28] MEDS: HYDROcodone-ACET 5/325MG TAB PO PRN (21:27)
[2025-05-29] VITALS (8 sets, daily range): BP systolic 115–141; BP diastolic 77–97; PULSE 74–104; RESP 15–18; TEMP 97.7–98.7; O2SAT 97–98
[2025-05-29 14:04] LABS: Chloride 103 mmol/L (98-107); Potassium 3.6 mmol/L (3.5-5.1); Sodium 137 mmol/L (136-145)
[2025-05-29 14:05] LABS: Anion Gap 11 (5-15); Carbon Dioxide 23 mmol/L (20-31)
[2025-05-29 14:11] LABS: BUN/Creatinine Ratio 25.0 (10.0-20.0); Blood Urea Nitrogen 12 mg/dL (9-23); Magnesium 1.8 mg/dL (1.6-2.6)
[2025-05-29 14:13] LABS: Calcium 8.6 mg/dL (8.7-10.4); Glucose 135 mg/dL (74-106)
--- NOTE | 2025-05-29 17:00 | DVHPN2 ---
Subjective Patient is more awake alert today. 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 Medications Current Medications Medications Dose Ordered Sig/Eli Route Start Time Stop Time Status Last Admin Dose Admin Ceftriaxone Sodium 50 ml @ 100 mls/hr DAILY@0100 IV 05/27/25 01:00 05/29/25 01:19 100 MLS/HR Ondansetron HCl 4 mg Q4HP PRN IV 05/26/25 03:45 05/27/25 20:00 4 MG Nitroglycerin 0.4 mg Q5MINP PRN SL 05/26/25 03:45 Morphine Sulfate 2 mg Q30M PRN IV 05/26/25 03:45 Hydralazine HCl 10 mg Q6HP PRN IV 05/26/25 09:45 05/27/25 05:04 10 MG Acetaminophen/ Hydrocodone Bitart 1 tab Q6HPRN PRN PO 05/28/25 20:00 05/29/25 10:57 1 TAB Laboratory Results Laboratory Tests 05/27/25 06:15 05/29/25 13:21 Chemistry Test 05/29/25 13:21 Calcium Level 8.6 mg/dL (8.7-10.4) L Magnesium Level 1.8 mg/dL (1.6-2.6) Urinalysis Test 05/26/25 09:35 Urine Color Light-yellow (Yellow) Urine Clarity Turbid (Clear) H Urine pH 7.0 (5.0-9.0) Urine Specific [place] 1.017 (1.001-1.035) Urine Protein Negative (Negative) Urine Ketones Negative (Negative) Urine Blood Negative /uL (Negative) Urine Nitrite Negative (Negative) Urine Bilirubin Negative (Negative) Urine Urobilinogen Normal mg/dL (Negative) Urine Leukocyte Esterase Negative /uL (Negative) Urine RBC 2 /hpf (0 - 4) Urine Microscopic WBC 2 /HPF (0-5) Urine Squamous Epithelial Cells Few /hpf (<5) Urine Amorphous Crystals Few /hpf (None Seen) Urine Bacteria Few /hpf (None Seen) H Urine Glucose Normal mg/dL (Normal) Microbiology Microbiology Date/Time Source Procedure Growth Status 05/25/25 22:00 Stool Stool Culture - Final Complete 05/25/25 22:00 Stool Shiga Toxin I & II - Final Complete 05/25/25 22:00 Stool Clostridium difficile Toxin Assay - Final Complete Assessment/Plan Assessment/Plan 50-year-old female who was brought in by paramedics as she was sleeping on the side of the street found to have 1. Acute toxic encephalopathy 2. Illicit drug use with a positive urinary drug screen 3. Hypokalemia 4. Diarrhea rule out C diff 5. Homeless -diet as tolerated, replace electrolytes -social media executive consultation for disposition. Plan discussed with: Patient My Orders Orders - SACHA CAMPUZANO MD Procedure Category Date Status Time * Optical Effects Layout Person CONS 05/29/25 Transmitted Consult Initiate Vte JOSE CRUZ 05/29/25 In Process Prophylaxis 13:13 Date of Service: May 29, 2025 Billing Provider: SACHA CAMPUZANO MD Common Visit Codes: [id number] INP/OBS CARE(MOD) SACHA CAMPUZANO MD May 29, 2025 17:00
[2025-05-30] VITALS (8 sets, daily range): BP systolic 106–136; BP diastolic 76–97; PULSE 72–92; RESP 16–18; TEMP 97.4–98.2; O2SAT 95–98
[2025-05-30] MEDS: MORPHINE SULFATE INJ 2 MG/ml SYRG IV ONE (01:34)
--- NOTE | 2025-05-30 16:27 | DVHPN2 ---
Subjective Patient is more awake alert today. Patient is requesting morphine but patient is currently [place] we will double the dose of [place]. Discharge plan to skilled nursing in a.m. as per sr. social media & mobile manager. 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 Medications Current Medications Medications Dose Ordered Sig/Eli Route Start Time Stop Time Status Last Admin Dose Admin Ceftriaxone Sodium 50 ml @ 100 mls/hr DAILY@0100 IV 05/27/25 01:00 05/30/25 00:57 100 MLS/HR Ondansetron HCl 4 mg Q4HP PRN IV 05/26/25 03:45 05/27/25 20:00 4 MG Nitroglycerin 0.4 mg Q5MINP PRN SL 05/26/25 03:45 Morphine Sulfate 2 mg Q30M PRN IV 05/26/25 03:45 Hydralazine HCl 10 mg Q6HP PRN IV 05/26/25 09:45 05/27/25 05:04 10 MG Acetaminophen/ Hydrocodone Bitart 1 tab Q6HPRN PRN PO 05/28/25 20:00 Hold 05/30/25 13:00 1 TAB Acetaminophen/ Hydrocodone Bitart 1 tab Q4HP PRN PO 05/30/25 15:00 Laboratory Results Laboratory Tests 05/27/25 06:15 05/29/25 13:21 Urinalysis Test 05/26/25 09:35 Urine Color Light-yellow (Yellow) Urine Clarity Turbid (Clear) H Urine pH 7.0 (5.0-9.0) Urine Specific [place] 1.017 (1.001-1.035) Urine Protein Negative (Negative) Urine Ketones Negative (Negative) Urine Blood Negative /uL (Negative) Urine Nitrite Negative (Negative) Urine Bilirubin Negative (Negative) Urine Urobilinogen Normal mg/dL (Negative) Urine Leukocyte Esterase Negative /uL (Negative) Urine RBC 2 /hpf (0 - 4) Urine Microscopic WBC 2 /HPF (0-5) Urine Squamous Epithelial Cells Few /hpf (<5) Urine Amorphous Crystals Few /hpf (None Seen) Urine Bacteria Few /hpf (None Seen) H Urine Glucose Normal mg/dL (Normal) Microbiology Microbiology Date/Time Source Procedure Growth Status 05/25/25 22:00 Stool Stool Culture - Final Complete 05/25/25 22:00 Stool Shiga Toxin I & II - Final Complete 05/25/25 22:00 Stool Clostridium difficile Toxin Assay - Final Complete Assessment/Plan Assessment/Plan 50-year-old female who was brought in by paramedics as she was sleeping on the side of the street found to have 1. Acute toxic encephalopathy 2. Illicit drug use with a positive urinary drug screen 3. Hypokalemia 4. Diarrhea ruled out C diff 5. Homeless -diet as tolerated, replace electrolytes -social psychologist consultation for disposition. -check CMP and Mag level. Plan discussed with: Patient My Orders Orders - SACHA CAMPUZANO MD Procedure Category Date Status Time Hydrocodone-Acet PHA 05/30/25 In Process 10/325mg Tab ([place] 15:00 Comprehensive LAB 05/31/25 Verified Metabolic Panel 04:00 Magnesium LAB 05/31/25 Verified 04:00 Date of Service: May 30, 2025 Billing Provider: SACHA CAMPUZANO MD Common Visit Codes: [id number] INP/OBS CARE(MOD) SACHA CAMPUZANO MD May 30, 2025 16:27
[2025-05-30] MEDS: HYDROcodone-ACET 10/325MG TAB PO PRN (17:06)
[2025-05-31] VITALS (7 sets, daily range): BP systolic 110–120; BP diastolic 71–87; PULSE 78–117; RESP 16–18; TEMP 97.2–98.2; O2SAT 97–99
[2025-05-31 10:56] LABS: Alanine Aminotransferase 22 U/L (7-40); Albumin 3.9 g/dL (3.2-4.8); Alkaline Phosphatase 114 U/L (46-116); Anion Gap 9 (5-15); BUN/Creatinine Ratio 26.0 (10.0-20.0); Blood Urea Nitrogen 13 mg/dL (9-23); Calcium 8.7 mg/dL (8.7-10.4); Carbon Dioxide 28 mmol/L (20-31); Chloride 104 mmol/L (98-107); Magnesium 1.7 mg/dL (1.6-2.6); Potassium 3.6 mmol/L (3.5-5.1); Sodium 141 mmol/L (136-145); Total Protein 6.2 g/dL (5.7-8.2)
[2025-05-31 10:57] LABS: Bilirubin, Total 0.2 mg/dL (0.2-1.0); Glucose 107 mg/dL (74-106)
--- NOTE | 2025-05-31 16:16 | DVHPN2 ---
Subjective Patient is more awake alert today. Patient is requesting morphine but patient is currently [place] we will double the dose of [place]. Discharge plan to half-way in a.m. as per psychiatric social worker supervisor. 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 Medications Current Medications Medications Dose Ordered Sig/Eli Route Start Time Stop Time Status Last Admin Dose Admin Ceftriaxone Sodium 50 ml @ 100 mls/hr DAILY@0100 IV 05/27/25 01:00 05/31/25 01:32 100 MLS/HR Ondansetron HCl 4 mg Q4HP PRN IV 05/26/25 03:45 05/27/25 20:00 4 MG Nitroglycerin 0.4 mg Q5MINP PRN SL 05/26/25 03:45 Morphine Sulfate 2 mg Q30M PRN IV 05/26/25 03:45 Hydralazine HCl 10 mg Q6HP PRN IV 05/26/25 09:45 05/27/25 05:04 10 MG Acetaminophen/ Hydrocodone Bitart 1 tab Q6HPRN PRN PO 05/28/25 20:00 Hold 05/30/25 13:00 1 TAB Acetaminophen/ Hydrocodone Bitart 1 tab Q4HP PRN PO 05/30/25 15:00 05/31/25 16:11 1 TAB Laboratory Results Laboratory Tests 05/27/25 06:15 05/31/25 10:18 Chemistry Test 05/31/25 10:18 Albumin 3.9 g/dL (3.2-4.8) Calcium Level 8.7 mg/dL (8.7-10.4) Magnesium Level 1.7 mg/dL (1.6-2.6) Total Protein 6.2 g/dL (5.7-8.2) LFT Test 05/31/25 10:18 Alanine Aminotransferase (ALT) 22 U/L (7-40) Alkaline Phosphatase 114 U/L (46-116) Aspartate Amino Transferase (AST) 27 U/L (13-40) Total Bilirubin 0.2 mg/dL (0.2-1.0) Urinalysis Test 05/26/25 09:35 Urine Color Light-yellow (Yellow) Urine Clarity Turbid (Clear) H Urine pH 7.0 (5.0-9.0) Urine Specific [place] 1.017 (1.001-1.035) Urine Protein Negative (Negative) Urine Ketones Negative (Negative) Urine Blood Negative /uL (Negative) Urine Nitrite Negative (Negative) Urine Bilirubin Negative (Negative) Urine Urobilinogen Normal mg/dL (Negative) Urine Leukocyte Esterase Negative /uL (Negative) Urine RBC 2 /hpf (0 - 4) Urine Microscopic WBC 2 /HPF (0-5) Urine Squamous Epithelial Cells Few /hpf (<5) Urine Amorphous Crystals Few /hpf (None Seen) Urine Bacteria Few /hpf (None Seen) H Urine Glucose Normal mg/dL (Normal) Microbiology Microbiology Date/Time Source Procedure Growth Status 05/25/25 22:00 Stool Stool Culture - Final Complete 05/25/25 22:00 Stool Shiga Toxin I & II - Final Complete 05/25/25 22:00 Stool Clostridium difficile Toxin Assay - Final Complete Assessment/Plan Assessment/Plan 50-year-old female who was brought in by paramedics as she was sleeping on the side of the street found to have 1. Acute toxic encephalopathy 2. Illicit drug use with a positive urinary drug screen 3. Hypokalemia 4. Diarrhea ruled out C diff 5. Homeless -diet as tolerated, replace electrolytes -psychiatric social worker supervisor consultation for disposition. -check CMP and Mag level. Plan discussed with: Patient Date of Service: May 31, 2025 Billing Provider: SACHA CAMPUZANO MD Common Visit Codes: [id number] INP/OBS CARE(MOD) SACHA CAMPUZANO MD May 31, 2025 16:16
[2025-05-31] MEDS ORDERED: KETOROLAC TROMETH 30 MG/ML 1ML VIAL IV ONE (21:45)
[2025-05-31 23:07] LABS: Chlamydia Trachomatis, NAA Negative (Negative); Neisseria gonorrhoeae, NAA Negative (Negative)
[2025-05-31] MEDS: MELATONIN 5 MG TAB PO ONE (23:20)
[2025-06-01] VITALS (8 sets, daily range): BP systolic 101–117; BP diastolic 53–79; PULSE 77–112; RESP 17–20; TEMP 98.2–98.7; O2SAT 97
[2025-06-01] MEDS ORDERED: PERCOT PO (11:52)
--- NOTE | 2025-06-01 11:55 | DVHPN2 ---
Reviewed: Care Plan, H&P, Labs, Medications, Previous Orders, Radiology Changes from previous H/P or p: No Changes Objective Vitals Vital Signs Date Time Temp Pulse Resp B/P (MAP) Pulse Ox O2 Delivery O2 Flow Rate FiO2 06/01/25 05:00 98.2 77 18 111/75 (87) 97 98.2 05/31/25 20:00 Room Air* 0 21 Intake/Output Intake and Output 06/01/25 07:00 Intake Total 4390 ml Balance 4390 ml Intake Oral 4340 ml IV Total 50 ml # Voids 4 # Bowel Movements 2 Medications Current Medications Medications Dose Ordered Sig/Eli Route Start Time Stop Time Status Last Admin Dose Admin Ceftriaxone Sodium 50 ml @ 100 mls/hr DAILY@0100 IV 05/27/25 01:00 06/01/25 00:29 100 MLS/HR Ondansetron HCl 4 mg Q4HP PRN IV 05/26/25 03:45 05/27/25 20:00 4 MG Nitroglycerin 0.4 mg Q5MINP PRN SL 05/26/25 03:45 Morphine Sulfate 2 mg Q30M PRN IV 05/26/25 03:45 Hydralazine HCl 10 mg Q6HP PRN IV 05/26/25 09:45 05/27/25 05:04 10 MG Acetaminophen/ Hydrocodone Bitart 1 tab Q6HPRN PRN PO 05/28/25 20:00 Hold 05/30/25 13:00 1 TAB Acetaminophen/ Hydrocodone Bitart 1 tab Q4HP PRN PO 05/30/25 15:00 06/01/25 11:35 1 TAB Laboratory Results Laboratory Tests 05/27/25 06:15 05/31/25 10:18 Urinalysis Test 05/26/25 09:35 Urine Color Light-yellow (Yellow) Urine Clarity Turbid (Clear) H Urine pH 7.0 (5.0-9.0) Urine Specific [place] 1.017 (1.001-1.035) Urine Protein Negative (Negative) Urine Ketones Negative (Negative) Urine Blood Negative /uL (Negative) Urine Nitrite Negative (Negative) Urine Bilirubin Negative (Negative) Urine Urobilinogen Normal mg/dL (Negative) Urine Leukocyte Esterase Negative /uL (Negative) Urine RBC 2 /hpf (0 - 4) Urine Microscopic WBC 2 /HPF (0-5) Urine Squamous Epithelial Cells Few /hpf (<5) Urine Amorphous Crystals Few /hpf (None Seen) Urine Bacteria Few /hpf (None Seen) H Urine Glucose Normal mg/dL (Normal) Microbiology Microbiology Date/Time Source Procedure Growth Status 05/25/25 22:00 Stool Stool Culture - Final Complete 05/25/25 22:00 Stool Shiga Toxin I & II - Final Complete 05/25/25 22:00 Stool Clostridium difficile Toxin Assay - Final Complete Labs and/or images reviewed: Labs reviewed by me, Image(s) reviewed by me Assessment/Plan Assessment/Plan Covering for Dr Parks 1. Acute toxic encephalopathy 2. Illicit drug use with a positive urinary drug screen 3. Hypokalemia 4. Diarrhea ruled out C diff 5. Homeless 6. Chronic pain Percocet JAGJIT Zayas at bed side Patient will be discharged home Social service consult placed to provide the patient with the homeless resources Plan discussed with: Patient Date of Service: Jun 01, 2025 Billing Provider: ANAYA CARPENTER MD Common Visit Codes: [id number] INP/OBS CARE(HIGH) ANAYA CARPENTER MD Jun 01, 2025 11:55
--- NOTE | 2025-06-01 12:02 | DVHDS2 ---
Discharge Summary Date of Admission May 26, 2025 at 03:43 Date of Discharge: Jun 01, 2025 Admitting Diagnosis Altered and confused Wounds: None Labs/Diagnostic Data: Laboratory Results Test 05/31/25 10:18 05/29/25 08:15 05/28/25 09:04 05/27/25 06:15 Sodium Level 141 mmol/L (136-145) Potassium Level 3.6 mmol/L (3.5-5.1) Chloride Level 104 mmol/L (98-107) Carbon Dioxide Level 28 mmol/L (20-31) Anion Gap 9 (5-15) Blood Urea Nitrogen 13 mg/dL (9-23) Creatinine 0.50 mg/dL (0.550-1.02) Glomerular Filtration Rate Calc 114 mL/min (>90) BUN/Creatinine Ratio 26.0 (10.0-20.0) Serum Glucose 107 mg/dL (74-106) Calcium Level 8.7 mg/dL (8.7-10.4) Magnesium Level 1.7 mg/dL (1.6-2.6) Total Bilirubin 0.2 mg/dL (0.2-1.0) Aspartate Amino Transferase (AST) 27 U/L (13-40) Alanine Aminotransferase (ALT) 22 U/L (7-40) Alkaline Phosphatase 114 U/L (46-116) Total Protein 6.2 g/dL (5.7-8.2) Albumin 3.9 g/dL (3.2-4.8) Chlamydia trachomatis (CATE) Negative (Negative) Neisseria gonorrhoeae (CATE) Negative (Negative) B-Type Natriuretic Peptide 27.50 pg/mL (0-100) White Blood Count 11.2 10^3/uL (4.4-10.8) Red Blood Count 4.80 10^6/uL (4.0-5.20) Hemoglobin 13.6 g/dL (12.2-16.2) Hematocrit 40.5 % (36.0-46.0) Mean Corpuscular Volume 84.4 fL (80.0-100.0) Mean Corpuscular Hemoglobin 28.3 pg (28.0-32.0) Mean Corpuscular Hemoglobin Concent 33.5 g/dL (32.0-36.0) Red Cell Distribution Width 16.4 % (11.8-14.3) Platelet Count 567 10^3/uL (140-450) Mean Platelet Volume 7.5 fL (6.9-10.8) Neutrophils (%) (Auto) 80.4 % (37.0-80.0) Lymphocytes (%) (Auto) 16.2 % (10.0-50.0) Monocytes (%) (Auto) 3.2 % (0.0-12.0) Eosinophils (%) (Auto) 0.0 % (0.0-7.0) Basophils (%) (Auto) 0.2 % (0.0-2.0) Neutrophils # (Auto) 9.0 10 ^3/uL (1.6-8.6) Lymphocytes # (Auto) 1.8 10 ^3/uL (0.4-5.4) Monocytes # (Auto) 0.4 10 ^3/uL (0-1.3) Eosinophils # (Auto) 0 10 ^3/uL (0-0.8) Basophils # (Auto) 0 10 ^3/uL (0-0.2) Nucleated Red Blood Cells 0.1 % Test 05/26/25 09:35 05/25/25 22:00 05/25/25 19:48 05/25/25 18:38 Urine Color Light-yellow (Yellow) Urine Clarity Turbid (Clear) Urine pH 7.0 (5.0-9.0) Urine Specific [place] 1.017 (1.001-1.035) Urine Protein Negative (Negative) Urine Ketones Negative (Negative) Urine Blood Negative /uL (Negative) Urine Nitrite Negative (Negative) Urine Bilirubin Negative (Negative) Urine Urobilinogen Normal mg/dL (Negative) Urine Leukocyte Esterase Negative /uL (Negative) Urine RBC 2 /hpf (0 - 4) Urine Microscopic WBC 2 /HPF (0-5) Urine Squamous Epithelial Cells Few /hpf (<5) Urine Amorphous Crystals Few /hpf (None Seen) Urine Bacteria Few /hpf (None Seen) Urine Glucose Normal mg/dL (Normal) Urine Opiates Screen Neg (NEGATIVE) Urine Fentanyl Screen Pos (NEGATIVE) Urine Barbiturates Screen Neg (NEGATIVE) Urine Phencyclidine Screen Neg (NEGATIVE) Urine Amphetamines Screen Pos (NEGATIVE) Urine Benzodiazepines Screen Neg (NEGATIVE) Urine Cocaine Screen Neg (NEGATIVE) Urine Cannabinoids Screen Neg (NEGATIVE) Stool for White Cells None seen Troponin I High Sensitivity < 3 ng/L (</=34) Creatine Kinase 63 U/L (34-145) Lipase 61 U/L (12-53) Beta HCG, Quantitative 0.6 mIU/mL (1.5-4.2) Salicylates Level < 3.0 mg/dL (-30) Acetaminophen Level < 2.0 UG/ML (10.0-20.0) Plasma/Serum Blood Alcohol < 3.0 mg/dL (<10) Test 05/25/25 16:45 Lactic Acid Level 1.0 mmol/L (0.4-2.0) Ammonia 17 umol/L (11-32) Other Laboratory Tests 05/31/25 10:18 05/27/25 06:15 Brief Hx & Hospital Course: The patient was originally seen by Dr. 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 Patient was given IV fluids pain medications feeling better being discharged home on Percocet she will follow up with the discharge clinic in one week social service consult placed for providing patient with homeless resources Consults/Reason for consult None Operations or Procedures None Condition at Discharge: Fair Final Diagnosis/Problems List 1. Acute toxic encephalopathy 2. Illicit drug use with a positive urinary drug screen 3. Hypokalemia 4. Diarrhea ruled out C diff 5. Homeless 6. Chronic pain Percocet Discharge Disposition: Home Discharge Instruct/Medications Diet: Regular Activity: Light activity Follow Up/Referral: Follow up with the discharge clinic in one week Medications: Percocet [facility] Scheduled PRN Oxycodone W/ Acetaminophen (Percocet 5/325MG), 1 TAB PO QID PRN Miscellaneous Medications [Albuterol Sul0.083 %], %, (Reported) [Alprazolam2 Mg], MG, (Reported) [Amphetamine/Dex30 Mg], MG, (Reported) [Diazepam5 Mg], MG, (Reported) [Hydrocodone/Ace1 Tab], TAB, (Reported) [Proair Hfa 90 Mcg Inhaler], (Reported) [Tramadol Hcl50 Mg], MG, (Reported) 35 (Time taken for discharge summary 35 minutes) Discharge Statement: "Patient was advised to return to the ER or call 911 if any headaches, dizziness, shortness of breath, chest pain, abdominal pain, bleeding, fevers, or worsening of medical condition. Patient was counseled about treatment plan, medications, possible side effects, patientverbalized understanding. All questions were answered to the best of my ability. This discharge took greater then 30 minutes in planning, reviewing documentation, counseling the patient, and discussing with other team members." ASSESSMENT ASSESSMENT Hospital Course Uneventful Assessment 1. Acute toxic encephalopathy 2. Illicit drug use with a positive urinary drug screen 3. Hypokalemia 4. Diarrhea ruled out C diff 5. Homeless 6. Chronic pain Percocet Date of Service: Jun 01, 2025 Billing Provider: ANAYA CARPENTER MD Common Visit Codes: 14063-VYX/OBS DISCH DAY >30min ANAYA CARPENTER MD Jun 01, 2025 12:02
[2025-06-01] MEDS: OXYCODONE W/ ACETAMINOPHEN 5/325MG TABLET PO ONE (14:43)
[2025-06-01] MEDS: TEMAZEPAM 15 MG CAP PO ONE (22:08)
[2025-06-02 01:02] VITALS: BP 109/77; PULSE 93; RESP 20; TEMP 98; O2SAT 97
[2025-06-02 05:00] VITALS: BP 124/83; PULSE 90; RESP 19; TEMP 98; O2SAT 98
[2025-06-02 08:00] VITALS: PULSE 78; PULSE 95; RESP 17; O2SAT 97
[2025-06-02 09:00] VITALS: BP 100/67; PULSE 94; RESP 18; TEMP 98.4; O2SAT 100
--- NOTE | 2025-06-02 12:14 | DVHPN2 ---
Reviewed: Care Plan, H&P, Labs, Medications, Previous Orders, Radiology Changes from previous H/P or p: No Changes Objective Vitals Vital Signs Date Time Temp Pulse Resp B/P (MAP) Pulse Ox O2 Delivery O2 Flow Rate FiO2 06/02/25 09:00 98.4 94 18 100/67 (78) 100 98.4 06/02/25 08:00 Room Air* 0 21 Intake/Output Intake and Output 06/02/25 07:00 Intake Total 2710 ml Balance 2710 ml Intake Oral 2660 ml IV Total 50 ml # Voids 1 Medications Current Medications Medications Dose Ordered Sig/Eli Route Start Time Stop Time Status Last Admin Dose Admin Ceftriaxone Sodium 50 ml @ 100 mls/hr DAILY@0100 IV 05/27/25 01:00 06/02/25 01:21 100 MLS/HR Ondansetron HCl 4 mg Q4HP PRN IV 05/26/25 03:45 05/27/25 20:00 4 MG Nitroglycerin 0.4 mg Q5MINP PRN SL 05/26/25 03:45 Morphine Sulfate 2 mg Q30M PRN IV 05/26/25 03:45 Hydralazine HCl 10 mg Q6HP PRN IV 05/26/25 09:45 05/27/25 05:04 10 MG Acetaminophen/ Hydrocodone Bitart 1 tab Q6HPRN PRN PO 05/28/25 20:00 Hold 05/30/25 13:00 1 TAB Acetaminophen/ Hydrocodone Bitart 1 tab Q4HP PRN PO 05/30/25 15:00 06/02/25 08:32 1 TAB Laboratory Results Laboratory Tests 05/27/25 06:15 05/31/25 10:18 Urinalysis Test 05/26/25 09:35 Urine Color Light-yellow (Yellow) Urine Clarity Turbid (Clear) H Urine pH 7.0 (5.0-9.0) Urine Specific [place] 1.017 (1.001-1.035) Urine Protein Negative (Negative) Urine Ketones Negative (Negative) Urine Blood Negative /uL (Negative) Urine Nitrite Negative (Negative) Urine Bilirubin Negative (Negative) Urine Urobilinogen Normal mg/dL (Negative) Urine Leukocyte Esterase Negative /uL (Negative) Urine RBC 2 /hpf (0 - 4) Urine Microscopic WBC 2 /HPF (0-5) Urine Squamous Epithelial Cells Few /hpf (<5) Urine Amorphous Crystals Few /hpf (None Seen) Urine Bacteria Few /hpf (None Seen) H Urine Glucose Normal mg/dL (Normal) Microbiology Microbiology Date/Time Source Procedure Growth Status 05/25/25 22:00 Stool Stool Culture - Final Complete 05/25/25 22:00 Stool Shiga Toxin I & II - Final Complete 05/25/25 22:00 Stool Clostridium difficile Toxin Assay - Final Complete Labs and/or images reviewed: Labs reviewed by me, Image(s) reviewed by me Assessment/Plan Assessment/Plan Covering for Dr Parks 1. Acute toxic encephalopathy 2. Illicit drug use with a positive urinary drug screen 3. Hypokalemia 4. Diarrhea ruled out C diff 5. Homeless 6. Chronic pain Percocet JAGJIT Zayas at bed side Patient will be discharged home Patient was discharged home on 06/01/2025 clinical services consultant working on discharge Plan discussed with: Patient Date of Service: Jun 02, 2025 Billing Provider: ANAYA CARPENTER MD Common Visit Codes: [id number] INP/OBS CARE(HIGH) ANAYA CARPENTER MD Jun 02, 2025 12:14
== END 2025-06-02 14:18 | disposition home or self-care (01) | DRG 52 ==
LOC: ER 18:16 → EDUNIT# 05-26 03:43 → OVERFLOW 05-26 03:43 → EDBD 05-26 03:43 → TELE-EAST 05-26 21:04
PROVIDERS: ADMIT Family Medicine; ATTEND Family Medicine
DX: G92.8 Other toxic encephalopathy (principal); R64 Cachexia; E43 Unspecified severe protein-calorie malnutrition; Z59.00 Homelessness unspecified; A04.9 Bacterial intestinal infection, unspecified; A09 Infectious gastroenteritis and colitis, unspecified; N39.0 Urinary tract infection, site not specified; Z68.1 Body mass index [BMI] 19.9 or less, adult; E87.6 Hypokalemia; F15.10 Other stimulant abuse, uncomplicated; G89.29 Other chronic pain; Z79.899 Other long term (current) drug therapy
CPT/HCPCS: 36415; 70450; 71045; 74176; 80048; 80053; 80307; 80320; 80329; 81001; 82140; 82550; 83605; 83690; 83735; 83880; 84132; 84484; 84702; 85025; 85048; 87045; 96365; 96372; 97110; 97116; 97163; 97530; G0378; J2405; J3480

== ENCOUNTER 2025-07-15 14:14 | Inpatient (IN) | payer MEDICAID ==
[~2025-07-15] VITALS: Ht 154.9 cm; Wt 64.1 kg
[~2025-07-15 14:14] MED LIST changes: +PERCOT PO
--- NOTE | 2025-07-15 14:33 | ECG ---
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
--- NOTE | 2025-07-15 14:37 | ED.PDOC ---
Musculoskeletal HPI Comments This is a 50 year old female presenting to the ED with chief complaint of bilateral leg swelling. Patient reports that she has been experiencing bilateral leg swelling with associated pain and bilateral hip pain for the past 2 days. Patient denies any numbness, weakness, chest pain, SOB, fall, or injury. Chief Complaint: Extremity Swelling Time Seen by MD: 14:36 Primary Care Provider: DR PNIK Reviewed Notes: Nurses Notes, Medications, Allergies Allergies: Coded Allergies: Ibuprofen (Verified Allergy, Mild, SWELLING, 11/11/12) Home Meds Active Scripts Oxycodone W/ Acetaminophen (Percocet 5/325MG) 1 Tab Tb, 1 TAB PO QID PRN, #40 TAB Prov:ANAYA CARPENTER MD 06/01/25 Reported Medications [Albuterol Sul0.083 %] (Albuterol Sulfate) 0.083 % NEB No Conflict Check, % 11/11/12 [Tramadol Hcl50 Mg] (Tramadol Hcl) 50 MG TAB No Conflict Check, MG 11/11/12 [Proair Hfa 90 Mcg Inhaler] No Conflict Check 11/11/12 [Diazepam5 Mg] (Diazepam) 5 MG TAB No Conflict Check, MG 11/11/12 [Hydrocodone/Ace1 Tab] (Hydrocodone/Acetaminophen) 1 TAB TAB No Conflict Check, TAB 11/11/12 [Alprazolam2 Mg] (Alprazolam) 2 MG TAB No Conflict Check, MG 11/11/12 [Amphetamine/Dex30 Mg] (Amphetamine/Dextroampheta) 30 MG TAB No Conflict Check, MG 11/11/12 Information Source: Patient Mode of Arrival: Wheelchair Location: Bilateral Extremity Location: Foot, Hip, Leg Timing: Days Prehospital treatment: None Severity: Moderate Able to Move Extremity: Yes Bear Weight: Limited Pain: Moderate Mechanism: Spontaneous Circumstances: Spontaneous Onset of Symptoms: Spontaneous Symptoms: Swelling, Pain DVT Risk Factors: NONE Last Tetanus: Unknown Past Medical History PAST MEDICAL HISTORY: Denies Surgical History: Pt 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 Family History Family History: Reviewed,noncontributory to illness Social History Smoker: Cigarettes Alcohol: Rarely Drugs: Methamphetamine Lives In: Homeless Constitutional: denies: chills, diaphoresis, fatigue, fever, malaise, sweats, weakness, others EENTM: denies: blurred vision, double vision, ear bleeding, ear discharge, ear drainage, ear pain, ear ringing, eye pain, eye redness, hearing loss, mouth pain, mouth swelling, nasal discharge, nose bleeding, nose congestion, nose pain, photophobia, tearing, throat pain, throat swelling, voice changes, others Respiratory: denies: cough, hemoptysis, orthopnea, SOB at rest, shortness of breath, SOB with excertion, stridor, wheezing, others Cardiovascular: reports: edema; denies: chest pain, dizzy spells, diaphoresis, Dyspnea on exertion, irregular heart beat, left arm pain, lightheadedness, palpitations, PND, syncope, others Gastrointestinal: denies: abdomen distended, abdominal pain, blood streaked bowels, constipated, diarrhea, dysphagia, difficulty swallowing, hematemesis, melena, nausea, poor appetite, poor fluid intake, rectal bleeding, rectal pain, vomiting, others Genitourinary: denies: abnormal vagina bleeding, burning, dyspareunia, dysuria, flank pain, frequency, hematuria, incontinence, pain, , vagina discharge, urgency, others Neurological: denies: dizziness, fainting, headache, left sided numbness, left sided weakness, numbness, paresthesia, pre-existing deficit, right sided numbness, right sided weakness, seizure, speech problems, tingling, tremors, weakness, others Musculoskeletal: reports: others (Bilateral pelvic and leg pain); denies: back pain, gout, joint pain, joint swelling, muscle pain, muscle stiffness, neck pain Integumetry: denies: bruises, change in color, change in hair/nails, dryness, laceration, lesions, lumps, rash, wounds, others Allergic/Immunocompromised: denies: Difficulty Healing, Frequent Infections, Hives, Itching, others Hematologic/Lymphatic: denies: anemia, blood clots, easy bleeding, easy bruising, swollen glands, others Endocrine: denies: excessive hunger, excessive sweating, excessive thirst, excessive urination, flushing, intolerance to cold, intolerance to heat, unexplained weight gain, unexplained weight loss, others Psychiatric: denies: anxiety, bipolar disorder, depression, hopeless, panic disorder, schizophrenia, sleepless, suicidal, others All Other Systems: Reviewed and Negative Physical Exam General Appearance: Moderate Distress HEENT: Pale Conjuntivae (L), Pale Conjuntivae (R), Pharynx Normal, TMs Normal Neck: Full Range of Motion, Non-Tender, Normal, Normal Inspection Respiratory: Chest Non-Tender, Lungs Clear, No Accessory Muscle Use, No Respiratory Distress, Normal Breath Sounds Cardiovascular: No Edema, No JVD, No Murmur, No Gallop, Tachycardia Breast Exam: Deferred Gastrointestinal: No Organomegaly, No Pulsatile Mass, Normal Bowel Sounds, Soft, Suprapubic, Tenderness Genitalia: Deferred Pelvic: Deferred Rectal: Deferred Extremities: Leg edema, Normal capillary refill, Pedal edema Musculoskeletal : Apperance: Normal Neurologic: Alert, physician/allergy/immunology II-XII nml as Tested, Motor Weakness, Normal Affect, Normal Mood, No Sensory Deficits Cerebellar Function: Normal Reflexes: Normal Skin: Dry, Normal Color, Warm Lymphatic: No Adenopathy Was a procedure done? Was a procedure done?: No EKG EKG : Pulse Rate (adult): 118 Gratis: Normal Cardiac Rhythm: ST Block: None Hypertrophy: None ST: Normal Differential Diagnosis EXT Differential Diagnosis: CHF, Fracture, Sprain, Arthritis, Bursitis X-Ray, Labs, Meds, VS Vital Signs Date Time Temp Pulse Resp B/P (MAP) Pulse Ox O2 Delivery O2 Flow Rate FiO2 07/15/25 14:37 118 07/15/25 14:25 118 07/15/25 14:15 98.1 124 20 120/83 95 98.1 Lab Test 07/15/25 17:05 Range/Units White Blood Count 8.4 4.4-10.8 10^3/uL Red Blood Count 4.24 4.0-5.20 10^6/uL Hemoglobin 12.3 12.2-16.2 g/dL Hematocrit 37.6 36.0-46.0 % Mean Corpuscular Volume 88.7 80.0-100.0 fL Mean Corpuscular Hemoglobin 29.1 28.0-32.0 pg Mean Corpuscular Hemoglobin Concent 32.8 32.0-36.0 g/dL Red Cell Distribution Width 16.3 H 11.8-14.3 % Platelet Count 367 140-450 10^3/uL Mean Platelet Volume 7.0 6.9-10.8 fL Neutrophils (%) (Auto) 68.7 37.0-80.0 % Lymphocytes (%) (Auto) 23.6 10.0-50.0 % Monocytes (%) (Auto) 6.4 0.0-12.0 % Eosinophils (%) (Auto) 0.9 0.0-7.0 % Basophils (%) (Auto) 0.4 0.0-2.0 % Neutrophils # (Auto) 5.7 1.6-8.6 10 ^3/uL Lymphocytes # (Auto) 2.0 0.4-5.4 10 ^3/uL Monocytes # (Auto) 0.5 0-1.3 10 ^3/uL Eosinophils # (Auto) 0.1 0-0.8 10 ^3/uL Basophils # (Auto) 0 0-0.2 10 ^3/uL Nucleated Red Blood Cells 0.0 % Prothrombin Time 10.5 9.3-11.8 sec Prothrombin Time INR 0.99 0.9-1.15 Activated Partial Thromboplast Time 26.8 24.5-34.5 SEC Sodium Level 145 136-145 mmol/L Potassium Level 4.2 3.5-5.1 mmol/L Chloride Level 105 98-107 mmol/L Carbon Dioxide Level 30 20-31 mmol/L Anion Gap 10 5-15 Blood Urea Nitrogen 13 9-23 mg/dL Creatinine 0.74 0.550-1.02 mg/dL Glomerular Filtration Rate Calc 99 >90 mL/min BUN/Creatinine Ratio 17.6 10.0-20.0 Serum Glucose 98 74-106 mg/dL Calcium Level 10.5 H 8.7-10.4 mg/dL Plasma/Serum Blood Alcohol < 3.0 <10 mg/dL IV Hep-Lock was established The CBC is within normal limits The chemistry panel is within normal limits The alcohol level is negative The UDS is pending The patient is continued to have significant amount of pain as well as the swelling The CAT scan of the abdomen and pelvis shows: IMPRESSION: 1. Nonobstructing right renal stone. 2. Moderate to large colonic stool burden. The patient is still having significant amount of pain so the patient was given morphine and Zofran The patient is being admitted at this time. Images Reviewed?: Images reviewed and evaluated by me Time of 1ST Reevaluation: 18:16 Reevaluation 1ST: Unchanged Patient Education/Counseling: Diagnosis, Treatment, Prognosis Family Education/Counseling: No Family Present Departure 1 Departure Time of Disposition: 18:17 Impression: Primary Impression: Swelling of lower extremity Additional Impression: Acute generalized body pain Disposition: 09 ADMITTED INPATIENT Admit to: Med Surg Condition: Fair Critical Care Note Critical Care Time?: No Stability Stability form required: Yes Unstable for transfer: ED Physician Assesment (Clinical assesment) Heart Score Heart Score: Heart Score Response (Comments) Value History Moderate Suspicious 1 EKG Normal 0 Age 45-64 1 Risk Factors 1 or 2 risk factors 1 Troponin Normal limit 0 Total 3 I personally scribed for DIOGENES DENT MD ([email or web address]) on 07/15/25 at 14:37. Electronically submitted by Khalif Kaplan [email or web address]). DIOGENES DENT MD Jul 15, 2025 14:37
--- NOTE | 2025-07-15 15:11 | DVH ---
Bilateral lower extremity venous duplex Clinical History: leg swelling Comparison: None Technique: Duplex Doppler evaluation of the deep venous systems of both lower extremities from the common femora l veins to the popliteal veins including color Doppler and spectral/pulsed waveform analysis was perf ormed. Findings: RIGHT SIDE: The common femoral vein demonstrates appropriate compressibility and waveform variability. There is compressibility/patency of the great saphenous vein at the proximal thigh. The femoral vein demonstrates appropriate compressibility and waveform variability. The deep femoral vein demonstrates appropriate compressibility and waveform variability. The popliteal vein demonstrates appropriate compressibility and waveform variability. There is normal compressibility at the tibioperoneal trunk. LEFT SIDE: The common femoral vein demonstrates appropriate compressibility and waveform variability. There is compressibility/patency of the great saphenous vein at the proximal thigh. The femoral vein demonstrates appropriate compressibility and waveform variability. The deep femoral vein demonstrates appropriate compressibility and waveform variability. The popliteal vein demonstrates appropriate compressibility and waveform variability. There is normal compressibility at the tibioperoneal trunk. Impression: No right or left femoropopliteal venous thrombosis.
--- NOTE | 2025-07-15 15:15 | DVH ---
Exam: CT CT AB PEL WO CON-NO ORAL OR IV History: low abd pain Comparison Study: None Technique: Multidetector spiral CT of the abdomen was performed from lung bases to pubic symphysis. Imaging was performed without IV contrast. Axial, coronal and sagittal multiplanar reformats were ob tained from the axial data set by the technologist. Radiation Dose : 1. Abdomen/Pelvis: CTDIvol 6.3 mGy, DLP 342 mGy*cm. Findings: Evaluation of solid organs is limited due to lack of intravenous contrast use. Lung Bases: No acute or significant lung base finding. Normal heart size. No pleural or pericardial effusion. Liver: The liver is normal in size. No focal lesions. Gallbladder and Biliary Tree: Unremarkable Spleen: Unremarkable Pancreas: The pancreas is grossly normal in appearance. Adrenal Glands: Unremarkable Kidneys: 2 mm stone is seen in the lower pole of the right kidney. No hydronephrosis. Bladder: Grossly unremarkable for degree of distention. Bowel: The stomach is grossly normal in appearance. Small bowel and colon are normal in caliber and d istribution. The appendix is not visualized; however, no secondary findings of acute appendicitis id entified. Moderate to large colonic stool burden. Ascites: Absent Lymphadenopathy: No mesenteric, retroperitoneal or periportal lymphadenopathy. Abdominal Wall and Mesentery: Unremarkable. Vasculature: The visualized abdominal aorta is normal in size and caliber. Evaluation of abdominal a nd pelvic vessels is limited due to lack of intravenous contrast. Pelvic Organs: Unremarkable Musculoskeletal: No aggressive focal bony lesions, acute fractures or dislocation. IMPRESSION: 1. Nonobstructing right renal stone. 2. Moderate to large colonic stool burden. Radiation optimization: All CT scans at this facility use at least one of these dose optimization brett hniques: automated exposure control mA and/or kV adjustment per patient size (includes targeted exam s where dose is matched to clinical indication) or iterative reconstruction.
[2025-07-15 17:21] LABS: Hematocrit 37.6 % (36.0-46.0); Hemoglobin 12.3 g/dL (12.2-16.2); Mean Corpuscular Hemoglobin 29.1 pg (28.0-32.0); Mean Corpuscular Volume 88.7 fL (80.0-100.0); Nucleated Red Blood Cells % 0.0 %
[2025-07-15 17:29] LABS: Chloride 105 mmol/L (98-107); Potassium 4.2 mmol/L (3.5-5.1)
[2025-07-15 17:30] LABS: Anion Gap 10 (5-15); Carbon Dioxide 30 mmol/L (20-31)
[2025-07-15 17:31] LABS: Calcium 10.5 mg/dL (8.7-10.4); Sodium 145 mmol/L (136-145)
[2025-07-15 17:35] LABS: BUN/Creatinine Ratio 17.6 (10.0-20.0); Blood Urea Nitrogen 13 mg/dL (9-23); Glucose 98 mg/dL (74-106)
[2025-07-15 17:45] LABS: INR 0.99 (0.9-1.15); Partial Thromboplastin Time 26.8 SEC (24.5-34.5); Prothrombin Time 10.5 sec (9.3-11.8)
[2025-07-15] MEDS: ONDANSETRON HCL 4 MG/2 ML VIAL IV ONE (18:34)
[2025-07-15] MEDS: MORPHINE SULFATE 4 MG/ML SYR/VIAL IV ONE (18:34)
[2025-07-15 19:28] VITALS: PULSE 81; RESP 20; O2SAT 96
--- NOTE | 2025-07-15 20:40 | DVHHPRES ---
History of Present Illness Resident Creating Document: DYLAN FINN RESIDENT History of Present Illness This is a 50-year-old female with past medical history of asthma, anxiety, presented to the ER with chief complain of bilateral lower extremity and left hip pain and swelling. Patient endorsed pain started 2 months ago and has progressively worsened, pain is described as sharp, worsening with movements. She reports difficulty in ambulation, causing her to limp from the left side of her leg and eventually unable to walk without support due to loss of motor strength. She also complains of associated hair loss, unintentional weight loss of 15 lb in last 6 months. Previous hospitalization: Hospital records show previous hospitalization in May 2025 for drug abuse and overdose PMHx: Asthma, anxiety PSHx: Breast augmentation, myomectomy Family history: No significant family history Social history: Reports smoking occasional cigarettes, denies alcohol or recreational drug use Home medication: Valium, Ventolin Allergic history: Ibuprofen The patient was examined at bedside today. Vitals show tachycardia, tachypnea, patient is admitted for further evaluation and management. Review of Systems Constitutional: No: Fever, Chills, Sweats, Weakness, Malaise, Other Eyes: No: Pain, Vision change, Conjunctivae inflammation, Eyelid inflammation, Other, Redness ENT: No: Ear pain, Ear discharge, Nose pain, Nose discharge, Nose congestion, Mouth pain, Mouth swelling, Throat pain, Throat swelling, Other Respiratory: No: Cough, Dry, Shortness of breath, SOB with excertion, Wheezing, Hemoptysis, Pleuritic Pain, Sputum, Wheezing, Other Cardiovascular: No: Chest Pain, Palpitations, Orthopnea, Paroxysmal Noc. Dyspnea, Edema, Lt Headedness, Other Gastrointestinal: No: Nausea, Vomiting, Abdominal Pain, Diarrhea, Constipation, Melena, Hematochezia, Other Genitourinary: No Dysuria, No Frequency, No Incontinence, No Hematuria, No Ret ention, No Other Musculoskeletal: back pain, leg pain Skin: No: Rash, Lesions, Jaundice, Bruising, Other Neurological: Weakness Allergies: Coded Allergies: Ibuprofen (Verified Allergy, Mild, SWELLING, 11/11/12) Exam Vital Signs Vital Signs Date Time Temp Pulse Resp B/P (MAP) Pulse Ox O2 Delivery O2 Flow Rate FiO2 07/15/25 20:18 98.3 114 20 137/84 (101) 96 98.3 07/15/25 20:18 Room Air 07/15/25 19:28 0 21 Exam General: Patient lying in bed with legs flexed to help with pain. Patient alert and oriented in person, place and time. Patient following commands. HEENT: Normocephalic, atraumatic, moist mucous membranes Respiratory/pulmonary: Clear lungs bilaterally, vesicular murmurs present in almost all lung dennison, no associated crackles or wheezes. Cardiovascular: Normal heart sounds S1 and S2 with no associated murmurs Abdomen: Abdomen nondistended, there is no pain to palpation in any of the abdominal quadrants, no palpable masses. Extremities: Motor strength: Right 2/5 right thigh, 3/5 lower leg and foot. Left 2/5 left thigh, 3/5 lower leg and foot. Normal sensory strength. Pain reproducible in the lower back and hip joint on leg elevation bilaterally. Peripheral Pulses: 3+ Radial (R). 3+ Radial (L). 3+ Dorsalis pedis (R). 3+ Dorsalis pedis(L) Skin: No rashes or pruritus, there is no sacral edema present at this time. Neurological: Intact cranial nerves with no focal neurologic deficits Labs/Xrays Labs Test 07/15/25 17:05 Range/Units White Blood Count 8.4 4.4-10.8 10^3/uL Red Blood Count 4.24 4.0-5.20 10^6/uL Hemoglobin 12.3 12.2-16.2 g/dL Hematocrit 37.6 36.0-46.0 % Mean Corpuscular Volume 88.7 80.0-100.0 fL Mean Corpuscular Hemoglobin 29.1 28.0-32.0 pg Mean Corpuscular Hemoglobin Concent 32.8 32.0-36.0 g/dL Red Cell Distribution Width 16.3 H 11.8-14.3 % Platelet Count 367 140-450 10^3/uL Mean Platelet Volume 7.0 6.9-10.8 fL Neutrophils (%) (Auto) 68.7 37.0-80.0 % Lymphocytes (%) (Auto) 23.6 10.0-50.0 % Monocytes (%) (Auto) 6.4 0.0-12.0 % Eosinophils (%) (Auto) 0.9 0.0-7.0 % Basophils (%) (Auto) 0.4 0.0-2.0 % Neutrophils # (Auto) 5.7 1.6-8.6 10 ^3/uL Lymphocytes # (Auto) 2.0 0.4-5.4 10 ^3/uL Monocytes # (Auto) 0.5 0-1.3 10 ^3/uL Eosinophils # (Auto) 0.1 0-0.8 10 ^3/uL Basophils # (Auto) 0 0-0.2 10 ^3/uL Nucleated Red Blood Cells 0.0 % Prothrombin Time 10.5 9.3-11.8 sec Prothrombin Time INR 0.99 0.9-1.15 Activated Partial Thromboplast Time 26.8 24.5-34.5 SEC Sodium Level 145 136-145 mmol/L Potassium Level 4.2 3.5-5.1 mmol/L Chloride Level 105 98-107 mmol/L Carbon Dioxide Level 30 20-31 mmol/L Anion Gap 10 5-15 Blood Urea Nitrogen 13 9-23 mg/dL Creatinine 0.74 0.550-1.02 mg/dL Glomerular Filtration Rate Calc 99 >90 mL/min BUN/Creatinine Ratio 17.6 10.0-20.0 Serum Glucose 98 74-106 mg/dL Calcium Level 10.5 H 8.7-10.4 mg/dL Plasma/Serum Blood Alcohol < 3.0 <10 mg/dL SEPSIS Sepsis Screen Date sepsis recognized/suspect: Jul 15, 2025 Time Sepsis recognized/suspect: 2020 Recent Procedure: No On Antibiotic Therapy: No Respiratory Rate >20: No Heart Rate >90: Yes Temp<36 C (96.8 F) or >38.3 C: No SBP <90 or MAP <65 mmHG: No New Acute Mental Status Change: No Is the patient on CPAP, BIPAP,: No Physician Orders Urinalysis (07/15/25 14:33) Ct Ab Pel Wo Con-No Oral Or Iv (07/15/25 14:33) Heplock Iv (07/15/25 14:33) Bilat Lower Dvt (07/15/25 14:33) Drug Screen (07/15/25 14:33) Vital Signs Date Time Temp Pulse Resp B/P (MAP) Pulse Ox O2 Delivery O2 Flow Rate FiO2 07/15/25 20:18 98.3 114 20 137/84 (101) 96 98.3 07/15/25 20:18 114 20 96 Room Air 07/15/25 19:28 81 20 96 Room Air* 0 21 07/15/25 19:04 82 17 143/72 07/15/25 18:34 77 16 147/83 07/15/25 18:23 98.0 117 20 141/89 (106) 97 98.0 07/15/25 14:37 118 07/15/25 14:25 118 07/15/25 14:15 98.1 124 20 120/83 95 98.1 Laboratory Tests Test 07/15/25 17:05 White Blood Count 8.4 10^3/uL (4.4-10.8) Medications Medications Dose Ordered Sig/Eli Route Start Time Stop Time Status Last Admin Dose Admin Morphine Sulfate 4 mg ONCE ONCE IV 07/15/25 18:15 07/15/25 18:18 DC 07/15/25 18:34 4 MG Ondansetron HCl 4 mg ONCE ONCE IV 07/15/25 18:15 07/15/25 18:18 DC 07/15/25 18:34 4 MG Assessment/Plan Assessment/Plan Questionable Spinal cord compression Abdomen and pelvis CT did not report lumbar abnormalities MRI ordered Pain management with IV morphine, acetaminophen IV Zofran as needed DVT ruled out Low clinical suspicion for Pulmonary embolism EKG shows sinus tachycardia, premature ventricular complexes, old anteroseptal infarct Lower extremity Doppler negative for DVT Nephrolithiasis - non obstructive Hyperlipidemia Hypercalcemia Transaminitis Hepatitis panel ordered ASCVD score is low (3.4%), no need for statins at this point Gave advice on healthy life style habits History of drug abuse Drug screen ordered Polysubstance abuse Patient counseled on cessation for more than 16 minutes DIET: Regular DVT PROPHYLAXIS: Lovenox GI PROPHYLAXIS: Protonix CODE STATUS: Goals of care discussed with patient at bedside for more than 37 minutes. Full code DISPOSITION: Med/surge Patient's status and plan discussed with the patient. Case discussed with Dr. Wright Plan discussed with: Patient, Other (Nurses) Date of Service: Jul 15, 2025 Billing Provider: HERNANDO JONES MD Common Visit Codes: 47558-HPXLRRB INP/OBS CARE (HIGH) Secondary Visit Codes: 80227-EPKPSCSD CARE PLAN 30 MINUTES DYLAN FINN RESIDENT Jul 15, 2025 20:40 AUSTIN PASTRANA RESIDENT Jul 16, 2025 05:11
[2025-07-15 21:16] LABS: Alanine Aminotransferase 26 U/L (7-40); Magnesium 1.7 mg/dL (1.6-2.6); Total Protein 8.0 g/dL (5.7-8.2); Triglycerides 133 mg/dL (< 150)
[2025-07-15 21:17] LABS: Bilirubin, Total 0.4 mg/dL (0.2-1.0)
[2025-07-15 21:21] LABS: Albumin 4.8 g/dL (3.2-4.8); Alkaline Phosphatase 147 U/L (46-116); Bilirubin, Direct < 0.1 mg/dL (<0.3); Cholesterol 212 mg/dL (< 200); HDL Cholesterol 66 mg/dL (40-59)
[2025-07-15 21:35] LABS: Lipase 44 U/L (12-53)
[2025-07-15] MEDS: HYDROcodone-ACET 5/325MG TAB PO ONE (22:10)
[2025-07-15] MEDS ORDERED: MORPHINE SULFATE INJ 2 MG/ml SYRG IV PRN (22:15)
[2025-07-15] MEDS ORDERED: ONDANSETRON HCL 4 MG/2 ML VIAL IV PRN (22:15)
[2025-07-15 22:55] VITALS: PULSE 97; RESP 16; O2SAT 98
[2025-07-15 23:32] LABS: Urine Budding Yeast OCCASIONAL /hpf (None Seen); Urine Protein, UAD Negative (Negative)
[2025-07-15 23:43] LABS: Amphetamine Screen, Urine Neg (NEGATIVE); Barbiturate Scree,Urine Neg (NEGATIVE); Benzodiazephine Screen, Urine Pos (NEGATIVE); Cannabinoid Screen, Urine Neg (NEGATIVE); Cocaine Screen, Urine Neg (NEGATIVE); Opiate Scree,Urine Pos (NEGATIVE); Phencyclidine Screen, Urine Neg (NEGATIVE)
[2025-07-15] MEDS: ENOXAPARIN SOD 40 MG/0.4 ML SYRINGE SC SCH (23:47)
[2025-07-16] VITALS (7 sets, daily range): BP systolic 116–136; BP diastolic 81–95; PULSE 90–108; RESP 16–24; TEMP 97.5–98.3; O2SAT 94–98
[2025-07-16 00:36] LABS: Free T4 (Free Thyroxine) 1.12 ng/dL (0.89-1.76)
[2025-07-16] MEDS ORDERED: HYDROcodone-ACET 5/325MG TAB PO PRN (01:45)
[2025-07-16] MEDS: ACETAMINOPHEN 325 MG TAB PO PRN (02:04)
[2025-07-16] MEDS: HYDROcodone-ACET 5/325MG TAB PO PRN (03:06)
[2025-07-16] MEDS: SODIUM CHLORIDE 0.9% 1,000 ML IV SCH (03:34)
[2025-07-16] MEDS: LIDOCAINE 5% TOPICAL PATCH TOP ONE (06:11)
[2025-07-16 07:47] LABS: Hematocrit 36.7 % (36.0-46.0); Hemoglobin 12.1 g/dL (12.2-16.2); Mean Corpuscular Hemoglobin 29.6 pg (28.0-32.0); Mean Corpuscular Volume 89.2 fL (80.0-100.0); Nucleated Red Blood Cells % 0.1 %
[2025-07-16 08:00] LABS: Alanine Aminotransferase 22 U/L (7-40); Albumin 4.4 g/dL (3.2-4.8); Anion Gap 10 (5-15); BUN/Creatinine Ratio 18.8 (10.0-20.0); Blood Urea Nitrogen 12 mg/dL (9-23); Calcium 10.0 mg/dL (8.7-10.4); Carbon Dioxide 28 mmol/L (20-31); Glucose 88 mg/dL (74-106); Potassium 3.4 mmol/L (3.5-5.1); Sodium 147 mmol/L (136-145); Total Protein 7.2 g/dL (5.7-8.2)
[2025-07-16 08:01] LABS: Alkaline Phosphatase 131 U/L (46-116); Bilirubin, Total 0.5 mg/dL (0.2-1.0); Chloride 109 mmol/L (98-107)
[2025-07-16] MEDS: LORazepam 2MG/ML-1ML VIAL IV ONE ×2 (09:27→16:12)
[2025-07-16] MEDS: PANTOPRAZOLE 40 MG/10 ML VIAL INJ IV SCH (10:41)
[2025-07-16] MEDS: LIDOCAINE 5% TOPICAL PATCH TOP SCH (10:42)
--- NOTE | 2025-07-16 11:14 | DVH ---
PROCEDURE: MRI LUMBAR SPINE WO CONTRAST Indication: Low back pain COMPARISON: None TECHNIQUE: Multiplanar multisequence images of the the lumbar spine are obtained. FINDINGS: For the purpose of this examination, there are 5 lumbar vertebral body types counting from the lumbos acral junction. The lumbar vertebral body heights are maintained. Moderate multilevel disc space narrowing and desic cation most pronounced at L4-5 and L5-S1. Fatty and edematous endplate changes at L4-5. Conus termin ates at the level of the L1 vertebral body level. L1-2: Tiny disc protrusion. Mild facet and flavum hypertrophy. No spinal canal, neural foraminal st enosis. L2-3: Tiny disc protrusion. Mild facet and flavum hypertrophy. No spinal canal, neural foraminal st enosis. L3-4: No disc protrusion. Mild facet and flavum hypertrophy. No spinal canal, neural foraminal sten osis. L4-5: 5 mm disc protrusion. Mild facet and flavum hypertrophy. No spinal canal stenosis. Moderate r ight and mild left neural foraminal stenosis. L5-S1: 3 mm disc protrusion. Mild facet and flavum hypertrophy. No spinal canal stenosis. Mild bila teral neural foraminal stenosis IMPRESSION: Moderate lumbar degenerative disc disease predominantly at L4-5 and L5-S1. Mm disc protrusion L4-5.3 mm disc protrusion L5-S1 Moderate right and mild left neural foraminal stenosis L4-5. Mild neural foraminal stenosis L5-S1. No high-grade spinal canal stenosis.
[2025-07-16 11:39] LABS: Hepatitis B Surface Antigen Negative (Negative)
[2025-07-16] MEDS: POTASSIUM CHL 20MEQ/100ML 100 ML IV SCH ×2 (12:20→22:39)
[2025-07-16] MEDS: POLYETHYLENE GLYCOL 17 GM PWDR PO ONE (12:20)
[2025-07-16] MEDS: MORPHINE SULFATE 4 MG/ML SYR/VIAL IV PRN (12:21)
[2025-07-16 12:48] LABS: Hepatitis C Antibody Negative (Negative)
[2025-07-16] MEDS: IOHEXOL 350 MG/ML 100ML IJ ONE (12:59)
--- NOTE | 2025-07-16 13:35 | DVHINCON2 ---
Consultation - Surgical Date Seen: Jul 16, 2025 Referring Physician Referring Physician Attending Doctor: Paulina Francisco Resident Resident Creating Document: DYLAN FINN RESIDENT Reason for Consultation left sided back pain causing limp with ambulation History of Present Illness History of Present Illness History of Present Illness This is a 50-year-old female with past medical history of asthma, anxiety, presented to the ER with chief complain of bilateral lower extremity and left hip pain and swelling. Patient endorsed pain started 2 months ago and has progressively worsened, pain is described as sharp, worsening with movements. She reports difficulty in ambulation, causing her to limp from the left side of her leg and eventually unable to walk without support due to loss of motor strength. She also complains of associated hair loss, unintentional weight loss of 15 lb in last 6 months. Past Medical/Surgical History Past Medical/Surgical History Previous hospitalization: Hospital records show previous hospitalization in May 2025 for drug abuse and overdose PMHx: Asthma, anxiety PSHx: Breast augmentation, myomectomy Family and Social History Family and Social History Family history: No significant family history Social history: Reports smoking occasional cigarettes, denies alcohol or recreational drug use Home medication: Valium, Ventolin Allergic history: Ibuprofen Allergies and medications Allergies: Coded Allergies: Ibuprofen (Verified Allergy, Mild, SWELLING, 11/11/12) Home Meds Active Scripts Oxycodone W/ Acetaminophen (Percocet 5/325MG) 1 Tab Tb, 1 TAB PO QID PRN, #40 TAB Prov:ANAYA CARPENTER MD 06/01/25 Reported Medications [Albuterol Sul0.083 %] (Albuterol Sulfate) 0.083 % NEB No Conflict Check, % 11/11/12 [Tramadol Hcl50 Mg] (Tramadol Hcl) 50 MG TAB No Conflict Check, MG 11/11/12 [Proair Hfa 90 Mcg Inhaler] No Conflict Check 11/11/12 [Diazepam5 Mg] (Diazepam) 5 MG TAB No Conflict Check, MG 11/11/12 [Hydrocodone/Ace1 Tab] (Hydrocodone/Acetaminophen) 1 TAB TAB No Conflict Check, TAB 11/11/12 [Alprazolam2 Mg] (Alprazolam) 2 MG TAB No Conflict Check, MG 11/11/12 [Amphetamine/Dex30 Mg] (Amphetamine/Dextroampheta) 30 MG TAB No Conflict Check, MG 11/11/12 Review of systems Review of Systems: NEURO:Abnormal (left leg pain, LBP) Examination Vital signs Imaging: ORDERING PHYSICIAN: DYLAN FINN PROCEDURE(s): MSL - LUMBAR SPINE WO CONTRAST REASON: Low back pain ORDER NUMBER(s): [id number], ACCESSION NUMBER(s): [id number] PROCEDURE: MRI LUMBAR SPINE WO CONTRAST Indication: Low back pain COMPARISON: None TECHNIQUE: Multiplanar multisequence images of the the lumbar spine are obtained. FINDINGS: For the purpose of this examination, there are 5 lumbar vertebral body types counting from the lumbosacral junction. The lumbar vertebral body heights are maintained. Moderate multilevel disc space narrowing and desiccation most pronounced at L4-5 and L5-S1. Fatty and edematous endplate changes at L4-5. Conus terminates at the level of the L1 vertebral body level. L1-2: Tiny disc protrusion. Mild facet and flavum hypertrophy. No spinal canal, neural foraminal stenosis. L2-3: Tiny disc protrusion. Mild facet and flavum hypertrophy. No spinal canal, neural foraminal stenosis. L3-4: No disc protrusion. Mild facet and flavum hypertrophy. No spinal canal, neural foraminal stenosis. L4-5: 5 mm disc protrusion. Mild facet and flavum hypertrophy. No spinal canal stenosis. Moderate right and mild left neural foraminal stenosis. L5-S1: 3 mm disc protrusion. Mild facet and flavum hypertrophy. No spinal canal stenosis. Mild bilateral neural foraminal stenosis IMPRESSION: Moderate lumbar degenerative disc disease predominantly at L4-5 and L5-S1. Mm disc protrusion L4-5.3 mm disc protrusion L5-S1 Moderate right and mild left neural foraminal stenosis L4-5. Mild neural foraminal stenosis L5-S1. No high-grade spinal canal stenosis. ORDERING PHYSICIAN: BRENDON EID NP PROCEDURE(s): MNE - CERVICAL WO CONTRAST REASON: cervical radiculopathy ORDER NUMBER(s): [id number], ACCESSION NUMBER(s): [id number] PROCEDURE: MRI CERVICAL WO CONTRAST Indication: cervical radiculopathy COMPARISON: None TECHNIQUE: Multiplanar multisequence images of the the cervical spine are obtained. FINDINGS: The cervical vertebral body heights are maintained. Mild multilevel disc space narrowing and desiccation. No abnormal marrow edema. No prevertebral edema. Atlantooccipital, atlantoaxial articulations intact. C2-3: No spinal canal, neural foraminal stenosis. C3-4: No spinal canal stenosis. [id number] right and mild left neural foraminal stenosis secondary to facet and uncovertebral hypertrophy. C4-5: No spinal canal stenosis. [id number] right and mild left neural foraminal stenosis secondary to facet and uncovertebral hypertrophy. C5-6: No spinal canal stenosis. Minimal neural foraminal stenosis bilaterally. C6-7: No spinal canal stenosis. No neural foraminal stenosis. C7-T1: No spinal canal, neural foraminal stenosis IMPRESSION: Mild cervical degenerative disc disease. [id number] neural foraminal stenosis C3-4 and C4-5. No significant spinal canal stenosis Vital Signs Date Time Temp Pulse Resp B/P (MAP) Pulse Ox O2 Delivery O2 Flow Rate FiO2 07/16/25 12:21 104 24 119/81 07/16/25 09:00 97.5 97 97.5 07/16/25 01:42 Room Air* 0 21 Medications Current Medications Medications (Trade) Dose Ordered Sig/Eli Route PRN Reason Start Time Stop Time Status Last Admin Sodium Chloride 1,000 ml @ 120 mls/hr Q8H20M IV 07/15/25 22:15 07/16/25 03:34 Acetaminophen (Tylenol Tablet) 325 mg Q4HP PRN PO MILD PAIN (1-3 PAIN SCALE) 07/15/25 22:15 Ondansetron HCl (Zofran) 4 mg Q4HP PRN IV NAUSEA / VOMITING 07/15/25 22:15 Morphine Sulfate 2 mg Q4HPRN PRN IV SEVERE PAIN (7-10 PAIN SCALE) 07/15/25 22:15 07/16/25 02:09 DC Enoxaparin Sodium (Lovenox) 40 mg DAILY SC 07/15/25 22:15 07/16/25 10:42 Pantoprazole Sodium (Protonix) 40 mg DAILY IV 07/16/25 10:00 07/16/25 10:41 Acetaminophen/ Hydrocodone Bitart ([place] 5/325MG Tab) 1 tab Q6HPRN PRN PO MODERATE PAIN (4-6 PAIN SCALE) 07/16/25 01:45 07/16/25 02:09 DC Acetaminophen/ Hydrocodone Bitart ([place] 5/325MG Tab) 1 tab Q4HP PRN PO MODERATE PAIN (4-6 PAIN SCALE) 07/16/25 02:15 07/16/25 12:00 DC 07/16/25 08:46 Lidocaine (Lidoderm 5% Topical Patch) 1 patch DAILY TOP 07/16/25 10:00 Potassium Chloride 100 ml @ 50 mls/hr Q2H IV 07/16/25 11:15 07/16/25 15:14 07/16/25 12:20 Oxycodone/ Acetaminophen (Percocet 5/ 325MG Tablet) 1 tab Q4HP PRN PO MODERATE PAIN (4-6 PAIN SCALE) 07/16/25 12:00 Morphine Sulfate 2 mg Q4HPRN PRN IV SEVERE PAIN (7-10 PAIN SCALE) 07/16/25 12:15 07/16/25 12:21 Polyethylene Glycol (Miralax 17GM Powder) 17 gm DAILY PO 07/17/25 10:00 Laboratory Labs Test 07/16/25 06:21 07/15/25 23:57 07/15/25 23:06 07/15/25 20:58 Range/Units White Blood Count 6.6 4.4-10.8 10^3/uL Red Blood Count 4.11 4.0-5.20 10^6/uL Hemoglobin 12.1 L 12.2-16.2 g/dL Hematocrit 36.7 36.0-46.0 % Mean Corpuscular Volume 89.2 80.0-100.0 fL Mean Corpuscular Hemoglobin 29.6 28.0-32.0 pg Mean Corpuscular Hemoglobin Concent 33.1 32.0-36.0 g/dL Red Cell Distribution Width 16.1 H 11.8-14.3 % Platelet Count 356 140-450 10^3/uL Mean Platelet Volume 7.5 6.9-10.8 fL Neutrophils (%) (Auto) 50.0 37.0-80.0 % Lymphocytes (%) (Auto) 35.7 10.0-50.0 % Monocytes (%) (Auto) 6.5 0.0-12.0 % Eosinophils (%) (Auto) 7.0 0.0-7.0 % Basophils (%) (Auto) 0.8 0.0-2.0 % Neutrophils # (Auto) 3.3 1.6-8.6 10 ^3/uL Lymphocytes # (Auto) 2.4 0.4-5.4 10 ^3/uL Monocytes # (Auto) 0.4 0-1.3 10 ^3/uL Eosinophils # (Auto) 0.5 0-0.8 10 ^3/uL Basophils # (Auto) 0.1 0-0.2 10 ^3/uL Nucleated Red Blood Cells 0.1 % Sodium Level 147 H 136-145 mmol/L Potassium Level 3.4 L 3.5-5.1 mmol/L Chloride Level 109 H 98-107 mmol/L Carbon Dioxide Level 28 20-31 mmol/L Anion Gap 10 5-15 Blood Urea Nitrogen 12 9-23 mg/dL Creatinine 0.64 0.550-1.02 mg/dL Glomerular Filtration Rate Calc 108 >90 mL/min BUN/Creatinine Ratio 18.8 10.0-20.0 Serum Glucose 88 74-106 mg/dL Calcium Level 10.0 8.7-10.4 mg/dL Total Bilirubin 0.5 0.2-1.0 mg/dL Aspartate Amino Transferase (AST) 18 13-40 U/L Alanine Aminotransferase (ALT) 22 7-40 U/L Alkaline Phosphatase 131 H 46-116 U/L Total Protein 7.2 5.7-8.2 g/dL Albumin 4.4 3.2-4.8 g/dL Parathyroid Hormone (Intact) 19.4 18.4-80.1 pg/mL Free Thyroxine (T4) Calculated 1.12 0.89-1.76 ng/dL Total Triiodothyronine (TT3) 0.75 0.60-1.81 ng/mL Treponema pallidum Antibody Non-reactive Negative Hepatitis A IgM Antibody Negative Hepatitis B Surface Antigen Negative Negative Hepatitis B Core IgM Antibody Negative Negative Hepatitis C Antibody Negative Negative HIV (1&2) Antibody Negative Negative D-Dimer, Quantitative 1.72 H 0.0-0.49 mg/L FEU Urine Color Light-yellow Yellow Urine Clarity Clear Clear Urine pH 7.0 5.0-9.0 Urine Specific [place] 1.015 1.001-1.035 Urine Protein Negative Negative Urine Ketones Negative Negative Urine Blood Negative Negative /uL Urine Nitrite Negative Negative Urine Bilirubin Negative Negative Urine Urobilinogen Normal Negative mg/dL Urine Leukocyte Esterase 2+ Negative /uL Urine RBC <1 0 - 4 /hpf Urine Microscopic WBC 1 0-5 /HPF Urine Squamous Epithelial Cells Few <5 /hpf Urine Bacteria None seen None Seen /hpf Urine Yeast (Budding) Occasional None Seen /hpf Urine Glucose Normal Normal mg/dL Urine Test Negative Negative Urine Opiates Screen Pos NEGATIVE Urine Fentanyl Screen Pos NEGATIVE Urine Barbiturates Screen Neg NEGATIVE Urine Phencyclidine Screen Neg NEGATIVE Urine Amphetamines Screen Neg NEGATIVE Urine Benzodiazepines Screen Pos NEGATIVE Urine Cocaine Screen Neg NEGATIVE Urine Cannabinoids Screen Neg NEGATIVE Test 07/15/25 17:05 Range/Units Prothrombin Time 10.5 9.3-11.8 sec Prothrombin Time INR 0.99 0.9-1.15 Activated Partial Thromboplast Time 26.8 24.5-34.5 SEC Hemoglobin A1c 5.3 <5.7 % A1C Phosphorus Level 3.7 2.4-5.1 mg/dL Magnesium Level 1.7 1.6-2.6 mg/dL Direct Bilirubin < 0.1 <0.3 mg/dL C-Reactive Protein High Sensitivity 1.34 H <1.0 mg/dL Triglycerides Level 133 < 150 mg/dL Cholesterol Level 212 H < 200 mg/dL LDL Cholesterol 142 H < 100 mg/dL HDL Cholesterol 66 H 40-59 mg/dL Lipase 44 12-53 U/L Vitamin B12 Level 487 211-911 pg/mL Vitamin D 25-Hydroxy 35.9 30.0-100 ng/mL Thyroid Stimulating Hormone (TSH) 0.32 L 0.55-4.78 uIU/mL Plasma/Serum Blood Alcohol < 3.0 <10 mg/dL Examination: GENERAL:Normal, HEENT:Normal, NECK:Normal (Patient states she has occasional neck and shoulder pain accompanied with headaches), LUNGS:Normal, CVS:Normal, ABDOMEN:Normal, MSK:Normal (Patient has equal strong order entry representative bilaterally, bilateral legs), SKIN:Normal, NEURO:Abnormal (Patient reports weakness to her left leg related to left hip pain), :Normal Problem List/Assessment/Plan Problems: (1) Lumbar stenosis with neurogenic claudication (2) Muscle spasm of back Assessment and Plan Moderate lumbar degenerative disc disease predominantly at L4-5 and L5-S1. Mm disc protrusion L4-5.3 mm disc protrusion L5-S1 Moderate right and mild left neural foraminal stenosis L4-5. Mild neural foraminal stenosis L5-S1. MRI c spine unremarkable recommend ortho consult for hip pain Continue care and support per admitting team's discretion Physical therapy evaluation, treatment recommendations and safe discharge planning recommendations Effective pain management including muscle relaxers if the patient is complaining of muscle spasms Discussed treatment options with the patient at this time patient does not need emergent spine surgery She does have some lumbar degenerative disease however this can be handled as an outpatient basis with her primary care physician, spine team recommends physical therapy and pain management. Also recommend a formal orthopedic consult to ev aluate the hip pain Once the patient's pain is under control and she is able to ambulate safely there are no discharge barriers from a spine surgery perspective. She will need to follow up with her primary care doctor and if physical therapy and pain tae gement fail her than a spine referral would be necessary. However at this time we would recommend conservative management prior to any surgery Call with cheryl Eid [facility] Orthopaedic Spine Surgery nurse practitioner For Dr Jose Crook Patient was examined, chart reviewed, labs evaluated, and diagnostic studies and findings analyzed. Case was discussed with Dr. Tashi Crook who formulated the plan of care. This medical document was created using an electronic medical record system with [employer] dictation system. Although this document has been carefully reviewed, there might still be some phonetic and typographical errors. These areas are purely typographical due to imperfections of the software programs, and do not reflect any compromise in the patient's medical care. outpatient follow up for PT from PCP, progressing to pain management if needed Plan discussed with Plan discussed with: Patient, Other Visit Coding Surgery Date of Service if different f: Jul 16, 2025 Billing Provider: BRENDON EID NP Surgery Visit Codes: 47190 - INP CONSULT <55 MIN BRENDON EID NP Jul 16, 2025 13:35
[2025-07-16] MEDS: OXYCODONE W/ ACETAMINOPHEN 5/325MG TABLET PO PRN (14:03)
--- NOTE | 2025-07-16 14:12 | DVH ---
Procedure: CT CT ANGIO CHEST CONTRAST Reason for study/Clinical History: well's score elevated, tachy, elevated d-dimer, PE Comparison Study: None Exam Date: 07/16/2025 01:20 PM Radiation Dose Information: CT Dose: CTDI volume is 6.28 mGy. Dose-length product is 2.89 mGy*cm Contrast: Type of contrast: Omnipaque 300 Contrast inject: 100 Contrast wasted:0 TECHNIQUE: Multidetector spiral CTA of the chest was performed of the chest with intravenous contrast. PULMONARY ANGIOGRAPHY PROTOCOL was utilized using a bolus-tracking technique centered on the main pulmonary ar krishna. Axial, coronal and sagittal multiplanar and MIP reformats were performed. The dose indicators for CT are the volume Computed Tomography (CT) Dose Index (CTDIvol) and the Dose Length Product (DLP), and are measured in units of mGy and mGy-cm, respectively. These indicators are not patient dose, but values generated from the CT scanner acquisition factors. The report includes radiation exposure data for exposures received during this examination. FINDINGS: No acute pulmonary embolism. Lower Neck: Visualized portions of the thyroid gland are unremarkable. Aorta and Vasculature: Normal caliber of thoracic aorta. Lymph Nodes: No enlarged intrathoracic lymph nodes. Mediastinum: Heart size is normal. There is no pericardial effusion. The esophagus is unremarkable. Lungs: No focal consolidation, pleural effusion or significant pneumothorax. No suspicious pulmonary nodule or mass. Musculoskeletal: No acute osseous abnormality. Upper abdomen: Limited portions of the upper abdomen are unremarkable. IMPRESSION: 1. No acute pulmonary embolism. All CT scans at this medical facility are performed using dose modulation techniques as appropriate t o a performed exam including the following: Automated exposure control was utilized; adjustment of th e MA and/or KV according to patient size; and use of iterative reconstruction technique.
--- NOTE | 2025-07-16 14:14 | DVH ---
CLINICAL INDICATION: b/l hip pain TECHNIQUE: 1 radiographic views of the pelvis and 2 views of the left hip were obtained. Comparison: XY R HIP COMPLETE XRAY on DOS: 07/16/25, MRI LUMBAR SPINE WO CONTRAST on DOS: 07/16/25 FINDINGS/IMPRESSION: Imaging of the bilateral femoral head suggestive of avascular necrosis
--- NOTE | 2025-07-16 14:14 | DVH ---
CLINICAL INDICATION: hip pain TECHNIQUE: 2 radiographic views of the right hip were obtained. Comparison: XY L HIP COMPLETE XRAY on DOS: 07/16/25 FINDINGS/IMPRESSION: Flattening of the left femoral head suggestive of avascular necrosis.
--- NOTE | 2025-07-16 16:55 | DVH ---
PROCEDURE: MRI CERVICAL WO CONTRAST Indication: cervical radiculopathy COMPARISON: None TECHNIQUE: Multiplanar multisequence images of the the cervical spine are obtained. FINDINGS: The cervical vertebral body heights are maintained. Mild multilevel disc space narrowing and desicca tion. No abnormal marrow edema. No prevertebral edema. Atlantooccipital, atlantoaxial articulations intact. C2-3: No spinal canal, neural foraminal stenosis. C3-4: No spinal canal stenosis. [id number] right and mild left neural foraminal stenosis secon celia to facet and uncovertebral hypertrophy. C4-5: No spinal canal stenosis. Dsxy-ug-[id number] right and mild left neural foraminal stenosis secon celia to facet and uncovertebral hypertrophy. C5-6: No spinal canal stenosis. Minimal neural foraminal stenosis bilaterally. C6-7: No spinal canal stenosis. No neural foraminal stenosis. C7-T1: No spinal canal, neural foraminal stenosis IMPRESSION: Mild cervical degenerative disc disease. Nrud-[id number] neural foraminal stenosis C3-4 and C4-5. No significant spinal canal stenosis
[2025-07-16] MEDS: HYDROmorphone HCL 2 MG/ML VL/or syr IV PRN ×2 (16:57→21:27)
[2025-07-16] MEDS ORDERED: HYDROmorphone HCL 2 MG/ML VL/or syr IV PRN ×2 (17:30→17:45)
--- NOTE | 2025-07-16 18:21 | DVHPNRES ---
Progress Note Date Seen: Jul 16, 2025 Resident Creating Document: WAQAS NGUYEN RESIDENT Medical Necessity Reason Pt with a Central, PICC or Fol: No (RN) Subjective Review of Systems This is a 50-year-old female with past medical history of asthma, anxiety, presented to the ER with chief complain of bilateral lower extremity and left hip pain and swelling. Patient endorsed pain started 2 months ago and has progressively worsened, pain is described as sharp, worsening with movements. She reports difficulty in ambulation, causing her to limp from the left side of her leg and eventually unable to walk without support due to loss of motor strength. She also complains of associated hair loss, unintentional weight loss of 15 lb in last 6 months. 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 Previous hospitalization: Hospital records show previous hospitalization in May 2025 for drug abuse and overdose PMHx: Asthma, anxiety PSHx: Breast augmentation, myomectomy Menstrual history: Perimenopausal, irregular menstruation Family history: No significant family history Social history: Reports smoking occasional cigarettes, denies alcohol or recreational drug use Home medication: Valium, Ventolin Allergic history: Ibuprofen The patient was examined at bedside today. She reports having excruciating pain in her left hip, the patient said, the Screenie did not work. She reports having right thumb numbness. No other new complaints reported. Objective vital signs Vital Sign Date Time Temp Pulse Resp B/P (MAP) Pulse Ox O2 Delivery O2 Flow Rate FiO2 07/16/25 17:00 98.3 93 19 136/92 (107) 96 98.3 07/16/25 08:05 Room Air* 0 21 Total Intake and Output 07/15/25 07/15/25 07/16/25 15:00 23:00 07:00 Intake Total 336 ml Balance 336 ml medications Current Medications Medications Dose Ordered Sig/Eli Route Start Time Stop Time Status Last Admin Dose Admin Sodium Chloride 1,000 ml @ 120 mls/hr Q8H20M IV 07/15/25 22:15 07/16/25 03:34 120 MLS/HR Acetaminophen 325 mg Q4HP PRN PO 07/15/25 22:15 Ondansetron HCl 4 mg Q4HP PRN IV 07/15/25 22:15 Enoxaparin Sodium 40 mg DAILY SC 07/15/25 22:15 07/16/25 10:42 40 MG Pantoprazole Sodium 40 mg DAILY IV 07/16/25 10:00 07/16/25 10:41 40 MG Lidocaine 1 patch DAILY TOP 07/16/25 10:00 Oxycodone/ Acetaminophen 1 tab Q4HP PRN PO 07/16/25 12:00 07/16/25 14:03 1 TAB Polyethylene Glycol 17 gm DAILY PO 07/17/25 10:00 Hydromorphone HCl 0.25 mg Q6HPRN PRN IV 07/16/25 17:45 Examination Pt is lying on bed General Appearance: Alert, Oriented X3, Cooperative, Mild distress HEENT: Atraumatic, Mucous membranes moist/pink Respiratory: Clear to auscultation, Normal air movement, No added sounds Cardiovascular: Regular rate, Normal S1, Normal S2, No murmurs Abdominal/ : Active bowel sounds, Soft, no distention, no tenderness Extremities: No edema, Normal pulses, No tenderness/swelling Skin: No Significant rash, except past surgical scars Neuro: Normal speech, sensorimotor deficits none, all reflexes are present and normal, positive leg raise test, no lumbar spine tenderness Psych/Mental Status: Mental status NL, Mood NL 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 [id number]-ed-[id number] neural foraminal stenosis C3-4 and C4-[address] did not report lumbar abnormalities Lumbar spine MRI: Moderate lumbar degenerative disc disease predominantly at L4-L5 and L5-S1, disc protrusion at L4-5. Disc protrusion at L5 S1 3 mm. Moderate right and left neutral foraminal stenosis at L4-5 level. Mild neural foraminal stenosis L5-S1. No high-grade spinal canal stenosis. - Pain management with IV Dilaudid - spine surgery were consulted - ortho consulted for bilateral hip necrosis DVT ruled out PE ruled out Elevated D-dimer CT angiography of the lung revealed no acute pulmonary embolism. EKG shows sinus tachycardia, premature ventricular complexes, old anteroseptal infarct Lower extremity Doppler negative for DVT Nephrolithiasis - non obstructive Monitor kidney functions Hyperlipidemia Counseled on lifestyle modifications Transaminitis Hepatitis panel ASCVD score is low (3.4%), no need for statins at this point Gave advice on healthy life style habits Polysubstance abuse Patient counseled on cessation for more than 16 minutes DIET: Regular DVT PROPHYLAXIS: Lovenox GI PROPHYLAXIS: Protonix CODE STATUS: Goals of care discussed with patient at bedside for more than 37 minutes. Full code DISPOSITION: Med/surge Plan discussed with: Patient, Other (RN) Date of Service: Jul 16, 2025 Billing Provider: AUGUSTINA FERRO MD Common Visit Codes: [id number] INP/OBS CARE(HIGH) WAQAS NGUYEN RESIDENT Jul 16, 2025 18:21 JAY WILSON RESIDENT Jul 16, 2025 19:22 AUGUSTINA FERRO MD Jul 21, 2025 20:36
--- NOTE | 2025-07-16 18:21 | DVHDSRES ---
Discharge Summary Date of Admission Resident Creating Document: WAQAS NGUYEN Jul 15, 2025 at 22:13 Date of Discharge: Jul 16, 2025 Admitting Diagnosis Left hip osteoarthritis Labs/Diagnostic Data: Laboratory Results Test 07/16/25 06:21 07/15/25 23:57 07/15/25 23:06 07/15/25 20:58 White Blood Count 6.6 10^3/uL (4.4-10.8) Red Blood Count 4.11 10^6/uL (4.0-5.20) Hemoglobin 12.1 g/dL (12.2-16.2) Hematocrit 36.7 % (36.0-46.0) Mean Corpuscular Volume 89.2 fL (80.0-100.0) Mean Corpuscular Hemoglobin 29.6 pg (28.0-32.0) Mean Corpuscular Hemoglobin Concent 33.1 g/dL (32.0-36.0) Red Cell Distribution Width 16.1 % (11.8-14.3) Platelet Count 356 10^3/uL (140-450) Mean Platelet Volume 7.5 fL (6.9-10.8) Neutrophils (%) (Auto) 50.0 % (37.0-80.0) Lymphocytes (%) (Auto) 35.7 % (10.0-50.0) Monocytes (%) (Auto) 6.5 % (0.0-12.0) Eosinophils (%) (Auto) 7.0 % (0.0-7.0) Basophils (%) (Auto) 0.8 % (0.0-2.0) Neutrophils # (Auto) 3.3 10 ^3/uL (1.6-8.6) Lymphocytes # (Auto) 2.4 10 ^3/uL (0.4-5.4) Monocytes # (Auto) 0.4 10 ^3/uL (0-1.3) Eosinophils # (Auto) 0.5 10 ^3/uL (0-0.8) Basophils # (Auto) 0.1 10 ^3/uL (0-0.2) Nucleated Red Blood Cells 0.1 % Sodium Level 147 mmol/L (136-145) Potassium Level 3.4 mmol/L (3.5-5.1) Chloride Level 109 mmol/L (98-107) Carbon Dioxide Level 28 mmol/L (20-31) Anion Gap 10 (5-15) Blood Urea Nitrogen 12 mg/dL (9-23) Creatinine 0.64 mg/dL (0.550-1.02) Glomerular Filtration Rate Calc 108 mL/min (>90) BUN/Creatinine Ratio 18.8 (10.0-20.0) Serum Glucose 88 mg/dL (74-106) Calcium Level 10.0 mg/dL (8.7-10.4) Total Bilirubin 0.5 mg/dL (0.2-1.0) Aspartate Amino Transferase (AST) 18 U/L (13-40) Alanine Aminotransferase (ALT) 22 U/L (7-40) Alkaline Phosphatase 131 U/L (46-116) Total Protein 7.2 g/dL (5.7-8.2) Albumin 4.4 g/dL (3.2-4.8) Parathyroid Hormone (Intact) 19.4 pg/mL (18.4-80.1) Free Thyroxine (T4) Calculated 1.12 ng/dL (0.89-1.76) Total Triiodothyronine (TT3) 0.75 ng/mL (0.60-1.81) Treponema pallidum Antibody Non-reactive (Negative) Hepatitis A IgM Antibody Negative Hepatitis B Surface Antigen Negative (Negative) Hepatitis B Core IgM Antibody Negative (Negative) Hepatitis C Antibody Negative (Negative) HIV (1&2) Antibody Negative (Negative) D-Dimer, Quantitative 1.72 mg/L FEU (0.0-0.49) Urine Color Light-yellow (Yellow) Urine Clarity Clear (Clear) Urine pH 7.0 (5.0-9.0) Urine Specific [place] 1.015 (1.001-1.035) Urine Protein Negative (Negative) Urine Ketones Negative (Negative) Urine Blood Negative /uL (Negative) Urine Nitrite Negative (Negative) Urine Bilirubin Negative (Negative) Urine Urobilinogen Normal mg/dL (Negative) Urine Leukocyte Esterase 2+ /uL (Negative) Urine RBC <1 /hpf (0 - 4) Urine Microscopic WBC 1 /HPF (0-5) Urine Squamous Epithelial Cells Few /hpf (<5) Urine Bacteria None seen /hpf (None Seen) Urine Yeast (Budding) Occasional /hpf (None Urine Glucose Normal mg/dL (Normal) Urine Test Negative (Negative) Urine Opiates Screen Pos (NEGATIVE) Urine Fentanyl Screen Pos (NEGATIVE) Urine Barbiturates Screen Neg (NEGATIVE) Urine Phencyclidine Screen Neg (NEGATIVE) Urine Amphetamines Screen Neg (NEGATIVE) Urine Benzodiazepines Screen Pos (NEGATIVE) Urine Cocaine Screen Neg (NEGATIVE) Urine Cannabinoids Screen Neg (NEGATIVE) Test 07/15/25 17:05 Prothrombin Time 10.5 sec (9.3-11.8) Prothrombin Time INR 0.99 (0.9-1.15) Activated Partial Thromboplast Time 26.8 SEC (24.5-34.5) Hemoglobin A1c 5.3 % A1C (<5.7) Phosphorus Level 3.7 mg/dL (2.4-5.1) Magnesium Level 1.7 mg/dL (1.6-2.6) Direct Bilirubin < 0.1 mg/dL (<0.3) C-Reactive Protein High Sensitivity 1.34 mg/dL (<1.0) Triglycerides Level 133 mg/dL (< 150) Cholesterol Level 212 mg/dL (< 200) LDL Cholesterol 142 mg/dL (< 100) HDL Cholesterol 66 mg/dL (40-59) Lipase 44 U/L (12-53) Vitamin B12 Level 487 pg/mL (211-911) Vitamin D 25-Hydroxy 35.9 ng/mL (30.0-100) Thyroid Stimulating Hormone (TSH) 0.32 uIU/mL (0.55-4.78) Plasma/Serum Blood Alcohol < 3.0 mg/dL (<10) Other Laboratory Tests 07/16/25 06:21 Discharge Instruct/Medications Scheduled PRN Oxycodone W/ Acetaminophen (Percocet 5/325MG), 1 TAB PO QID PRN Miscellaneous Medications [Albuterol Sul0.083 %], %, (Reported) [Alprazolam2 Mg], MG, (Reported) [Amphetamine/Dex30 Mg], MG, (Reported) [Diazepam5 Mg], MG, (Reported) [Hydrocodone/Ace1 Tab], TAB, (Reported) [Proair Hfa 90 Mcg Inhaler], (Reported) [Tramadol Hcl50 Mg], MG, (Reported) Discharge Statement: "Patient was advised to return to the ER or call 911 if any headaches, dizziness, shortness of breath, chest pain, abdominal pain, bleeding, fevers, or worsening of medical condition. Patient was counseled about treatment plan, medications, possible side effects, patientverbalized understanding. All questions were answered to the best of my ability. This discharge took greater then 30 minutes in planning, reviewing documentation, counseling the patient, and discussing with other team members." ASSESSMENT ASSESSMENT Assessment WAQAS NGUYEN Jul 16, 2025 18:21
[2025-07-16] MEDS: HYDROmorphone HCL 2 MG/ML VL/or syr IV ONE (23:03)
[2025-07-17] VITALS (9 sets, daily range): BP systolic 120–157; BP diastolic 77–104; PULSE 81–99; RESP 17–20; TEMP 97.5–98.3; O2SAT 85–98
[2025-07-17 06:06] LABS: Hematocrit 32.0 % (36.0-46.0); Hemoglobin 10.8 g/dL (12.2-16.2); Mean Corpuscular Hemoglobin 29.7 pg (28.0-32.0); Mean Corpuscular Volume 87.8 fL (80.0-100.0); Nucleated Red Blood Cells % 0.0 %
[2025-07-17 06:21] LABS: Calcium 9.1 mg/dL (8.7-10.4); Potassium 3.9 mmol/L (3.5-5.1)
[2025-07-17 06:22] LABS: Anion Gap 9 (5-15); Carbon Dioxide 26 mmol/L (20-31)
[2025-07-17 06:27] LABS: BUN/Creatinine Ratio 18.9 (10.0-20.0); Blood Urea Nitrogen 10 mg/dL (9-23)
[2025-07-17 06:44] LABS: Chloride 111 mmol/L (98-107); Glucose 113 mg/dL (74-106); Sodium 146 mmol/L (136-145)
[2025-07-17] MEDS: POLYETHYLENE GLYCOL 17 GM PWDR PO SCH (08:52)
--- NOTE | 2025-07-17 11:55 | DVHPNRES ---
Progress Note Date Seen: Jul 17, 2025 Resident Creating Document: DEBORAH NOVAK Medical Necessity Reason Pt with a Central, PICC or Fol: No (RN) Subjective Review of Systems This is a 50-year-old female with a past medical history of asthma and anxiety who presented to the ER with a chief complaint of bilateral lower extremity and left hip pain and swelling. The patient reports that the pain began two months ago and has progressively worsened. She describes the pain as sharp and aggravated by movement. She has difficulty ambulating, resulting in a limp on the left side and eventual inability to walk without support due to decreased motor strength. She also reports associated hair loss and unintentional weight loss of 15 lbs over the past six months. 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 The patient was examined at the bedside today and reports excruciating pain in her left hip. She stated that Odell did not relieve the pain. Additionally, she reports numbness in her right thumb. No other new complaints were noted. On 07/17, the patient was seen and examined at the bedside. Overnight events were reviewed. The patient reports severe pelvic pain described as stabbing and burning pain, associated with nausea. She stated that Dilaudid not relieve the pain. Objective vital signs Vital Sign Date Time Temp Pulse Resp B/P (MAP) Pulse Ox O2 Delivery O2 Flow Rate FiO2 07/17/25 11:07 86 16 128/95 07/17/25 09:00 97.7 96 97.7 07/17/25 08:00 Room Air* 0 21 Total Intake and Output 07/16/25 07/16/25 07/17/25 15:00 23:00 07:00 Intake Total 880 ml 2217 ml Balance 880 ml 2217 ml medications Current Medications Medications Dose Ordered Sig/Eli Route Start Time Stop Time Status Last Admin Dose Admin Acetaminophen 325 mg Q4HP PRN PO 07/15/25 22:15 Ondansetron HCl 4 mg Q4HP PRN IV 07/15/25 22:15 Enoxaparin Sodium 40 mg DAILY SC 07/15/25 22:15 07/17/25 08:52 40 MG Pantoprazole Sodium 40 mg DAILY IV 07/16/25 10:00 07/17/25 08:52 40 MG Lidocaine 1 patch DAILY TOP 07/16/25 10:00 07/17/25 08:52 1 PATCH Oxycodone/ Acetaminophen 1 tab Q4HP PRN PO 07/16/25 12:00 07/17/25 08:52 1 TAB Polyethylene Glycol 17 gm DAILY PO 07/17/25 10:00 07/17/25 08:52 17 GM Hydromorphone HCl 0.25 mg Q4HPRN PRN IV 07/16/25 18:30 07/17/25 11:07 0.25 MG Examination General Appearance: Alert, Oriented X3, Cooperative, Mild distress HEENT: Atraumatic, Mucous membranes moist/pink Respiratory: Clear to auscultation, Normal air movement, No added sounds Cardiovascular: Regular rate, Normal S1, Normal S2, No murmurs Abdominal/ : Active bowel sounds, Soft, no distention, no tenderness Extremities: No edema, Normal pulses, No tenderness/swelling Skin: No Significant rash, except past surgical scars Neuro: Normal speech, sensorimotor deficits none, all reflexes are present and normal, positive leg raise test, no lumbar spine tenderness Psych/Mental Status: Mental status NL, Mood NL laboratory and microbiology Laboratory Tests 07/17/25 05:46 Test 07/17/25 05:46 Range/Units Serum Glucose 113 H 74-106 mg/dL Labs and/or images reviewed: Labs reviewed by me, Image(s) reviewed by me Problem List/Assessment/Plan Problem List/Assessment/Plan Problem List/Assessment/Plan 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 Qssi-ci-zgrztsnt neural foraminal stenosis C3-4 and C4-[address] did not report lumbar abnormalities Lumbar spine MRI: Moderate lumbar degenerative disc disease predominantly at L4-L5 and L5-S1, disc protrusion at L4-5. Disc protrusion at L5 S1 3 mm. Moderate right and left neutral foraminal stenosis at L4-5 level. Mild neural foraminal stenosis L5-S1. No high-grade spinal canal stenosis. - Pain management with IV Dilaudid and Percocet -muscle relaxant Flexeril was started - spine surgery were consulted, recommendations appreciated: No emergent spine surgery, effective pain management including muscle relaxant, physical therapy evaluation, safe discharge planning recommendations, outpatient follow up. - ortho consulted as per spine surgery recommendations for bilateral hip necrosis DVT ruled out PE ruled out Elevated D-dimer CT angiography of the lung revealed no acute pulmonary embolism. EKG shows sinus tachycardia, premature ventricular complexes, old anteroseptal infarct Lower extremity Doppler negative for DVT Nephrolithiasis - non obstructive Monitor kidney functions Hyperlipidemia Counseled on lifestyle modifications Transaminitis Hepatitis panel ASCVD score is low (3.4%), no need for statins at this point Gave advice on healthy life style habits Polysubstance abuse Patient counseled on cessation for more than 16 minutes DIET: Regular PUD prophylaxis: protonix 40mg DVT prophylaxis: Lovenox 40mg Goals of care: Full code, discussed for >16 minutes on 07/17/25 Plan discussed with patient Plan discussed with Dr. Wright Plan discussed with: Patient My Orders My Orders Orders - DEBORAH NOVAK Procedure Category Date Status Time Complete Blood Count LAB 07/18/25 Verified 04:00 Basic Metabolic Panel LAB 07/18/25 Verified 04:00 Date of Service: Jul 17, 2025 Billing Provider: AUGUSTINA WRIGHT MD Common Visit Codes: [id number] INP/OBS CARE(HIGH) DEBORAH NOVAK RESIDENT Jul 17, 2025 11:55 WAQAS NGUYEN Jul 19, 2025 06:41 AUGUSTINA WRIGHT MD Jul 21, 2025 20:36
[2025-07-17] MEDS: ALPRAZolam 0.5 MG TAB PO ONE (22:36)
[2025-07-18] VITALS (8 sets, daily range): BP systolic 137–160; BP diastolic 93–111; PULSE 76–98; RESP 12–20; TEMP 97.4–98.5; O2SAT 94–100
[2025-07-18 06:56] LABS: Hematocrit 34.8 % (36.0-46.0); Hemoglobin 11.9 g/dL (12.2-16.2); Mean Corpuscular Hemoglobin 29.7 pg (28.0-32.0); Mean Corpuscular Volume 87.1 fL (80.0-100.0); Nucleated Red Blood Cells % 0.3 %
[2025-07-18 07:05] LABS: Anion Gap 11 (5-15); Carbon Dioxide 27 mmol/L (20-31); Chloride 107 mmol/L (98-107); Potassium 3.8 mmol/L (3.5-5.1)
[2025-07-18 07:06] LABS: Calcium 9.9 mg/dL (8.7-10.4)
[2025-07-18 07:11] LABS: BUN/Creatinine Ratio 19.0 (10.0-20.0); Blood Urea Nitrogen 11 mg/dL (9-23); Glucose 97 mg/dL (74-106); Sodium 145 mmol/L (136-145)
[2025-07-18] MEDS: CYCLOBENZAPRINE HCL 10 MG TAB PO SCH (13:52)
--- NOTE | 2025-07-18 14:37 | DVHPNRES ---
Progress Note Date Seen: Jul 18, 2025 Resident Creating Document: PATRICK,WAQAS RESIDENT Medical Necessity Reason Pt with a Central, PICC or Fol: No (RN) Subjective Review of Systems This is a 50-year-old female with a past medical history of asthma and anxiety who presented to the ER with a chief complaint of bilateral lower extremity and left hip pain and swelling. The patient reports that the pain began two months ago and has progressively worsened. She describes the pain as sharp and aggravated by movement. She has difficulty ambulating, resulting in a limp on the left side and eventual inability to walk without support due to decreased motor strength. She also reports associated hair loss and unintentional weight loss of 15 lbs over the past six months. 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 The patient was seen and examined at bedside. Overnight events were reviewed. The patient reports increasing pain in the left hip and requests escalating doses of Dilaudid. No new complaints reported. Objective vital signs Vital Sign Date Time Temp Pulse Resp B/P (MAP) Pulse Ox O2 Delivery O2 Flow Rate FiO2 07/18/25 13:00 98.2 98 12 139/98 (112) 100 98.2 07/18/25 08:15 Room Air* 0 21 Total Intake and Output 07/17/25 07/17/25 07/18/25 15:00 23:00 07:00 Intake Total 524 ml 1234 ml 780 ml Balance 524 ml 1234 ml 780 ml medications Current Medications Medications Dose Ordered Sig/Eli Route Start Time Stop Time Status Last Admin Dose Admin Acetaminophen 325 mg Q4HP PRN PO 07/15/25 22:15 Ondansetron HCl 4 mg Q4HP PRN IV 07/15/25 22:15 Enoxaparin Sodium 40 mg DAILY SC 07/15/25 22:15 07/18/25 08:57 40 MG Pantoprazole Sodium 40 mg DAILY IV 07/16/25 10:00 07/18/25 08:57 40 MG Lidocaine 1 patch DAILY TOP 07/16/25 10:00 07/18/25 08:57 1 PATCH Oxycodone/ Acetaminophen 1 tab Q4HP PRN PO 07/16/25 12:00 07/18/25 10:58 1 TAB Polyethylene Glycol 17 gm DAILY PO 07/17/25 10:00 07/18/25 08:56 17 GM Hydromorphone HCl 0.25 mg Q4HPRN PRN IV 07/16/25 18:30 07/18/25 12:44 0.25 MG Cyclobenzaprine HCl 5 mg TID PO 07/18/25 14:00 07/18/25 13:52 5 MG Examination Examination General Appearance: Alert, Oriented X3, Cooperative, Mild distress HEENT: Atraumatic, Mucous membranes moist/pink Respiratory: Clear to auscultation, Normal air movement, No added sounds Cardiovascular: Regular rate, Normal S1, Normal S2, No murmurs Abdominal/ : Active bowel sounds, Soft, no distention, no tenderness Extremities: No edema, Normal pulses, No tenderness/swelling Skin: No Significant rash, except past surgical scars Neuro: Normal speech, sensorimotor deficits none, all reflexes are present and normal, positive leg raise test, no lumbar spine tenderness, tender left hip joint Psych/Mental Status: Mental status NL, Mood NL laboratory and microbiology Laboratory Tests 07/18/25 06:09 Test 07/18/25 06:09 Range/Units Serum Glucose 97 74-106 mg/dL Labs and/or images reviewed: Labs reviewed by me, Image(s) reviewed by me Problem List/Assessment/Plan Problem List/Assessment/Plan Problem List/Assessment/Plan 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 [id number]-[id number] neural foraminal stenosis C3-4 and C4-[address] did not report lumbar abnormalities Lumbar spine MRI: Moderate lumbar degenerative disc disease predominantly at L4-L5 and L5-S1, disc protrusion at L4-5. Disc protrusion at L5 S1 3 mm. Moderate right and left neutral foraminal stenosis at L4-5 level. Mild neural foraminal stenosis L5-S1. No high-grade spinal canal stenosis. - Pain management with IV Dilaudid and Percocet -muscle relaxant Flexeril started. - spine surgery recommendations appreciated: Effective pain management including muscle relaxants, PT evaluation, safe discharge planning. Outpatient follow up advised. - ortho consulted as per spine surgery recommendations for bilateral hip necrosis DVT ruled out PE ruled out Elevated D-dimer CT angiography of the lung revealed no acute pulmonary embolism. EKG shows sinus tachycardia, premature ventricular complexes, old anteroseptal infarct Lower extremity Doppler negative for DVT Nephrolithiasis - non obstructive Monitor kidney functions Hyperlipidemia Counseled on lifestyle modifications Transaminitis Hepatitis panel ASCVD score is low (3.4%), no need for statins at this point Gave advice on healthy life style habits Polysubstance abuse Patient counseled on cessation for more than 16 minutes DIET: Regular PUD prophylaxis: protonix 40mg DVT prophylaxis: Lovenox 40mg Goals of care: Full code, discussed for >16 minutes on 07/17/25 Plan discussed with patient Plan discussed with Dr. 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
[2025-07-19] VITALS (8 sets, daily range): BP systolic 105–130; BP diastolic 68–96; PULSE 85–114; RESP 12–20; TEMP 97.8–98.7; O2SAT 95–98
[2025-07-19] MEDS ORDERED: methylPREDNISolone SOD SUCC 125 MG/2 ML VL IV ONE (02:00)
[2025-07-19] MEDS: HYDROmorphone HCL 2 MG/ML VL/or syr IV PRN ×2 (02:34→15:05)
[2025-07-19 06:16] LABS: Hematocrit 38.6 % (36.0-46.0); Hemoglobin 12.9 g/dL (12.2-16.2); Mean Corpuscular Hemoglobin 29.5 pg (28.0-32.0); Mean Corpuscular Volume 88.2 fL (80.0-100.0); Nucleated Red Blood Cells % 0.4 %
--- NOTE | 2025-07-19 06:32 | DVHDSRES ---
Discharge Summary Date of Admission Resident Creating Document: WAQAS NGUYEN Jul 15, 2025 at 22:13 Date of Discharge: Jul 16, 2025 Labs/Diagnostic Data: Laboratory Results Test 07/19/25 05:28 07/16/25 06:21 07/15/25 23:57 07/15/25 23:06 White Blood Count 7.4 10^3/uL (4.4-10.8) Red Blood Count 4.38 10^6/uL (4.0-5.20) Hemoglobin 12.9 g/dL (12.2-16.2) Hematocrit 38.6 % (36.0-46.0) Mean Corpuscular Volume 88.2 fL (80.0-100.0) Mean Corpuscular Hemoglobin 29.5 pg (28.0-32.0) Mean Corpuscular Hemoglobin Concent 33.4 g/dL (32.0-36.0) Red Cell Distribution Width 15.8 % (11.8-14.3) Platelet Count 419 10^3/uL (140-450) Mean Platelet Volume 7.1 fL (6.9-10.8) Neutrophils (%) (Auto) 37.9 % (37.0-80.0) Lymphocytes (%) (Auto) 39.7 % (10.0-50.0) Monocytes (%) (Auto) 6.7 % (0.0-12.0) Eosinophils (%) (Auto) 15.4 % (0.0-7.0) Basophils (%) (Auto) 0.3 % (0.0-2.0) Neutrophils # (Auto) 2.8 10 ^3/uL (1.6-8.6) Lymphocytes # (Auto) 2.9 10 ^3/uL (0.4-5.4) Monocytes # (Auto) 0.5 10 ^3/uL (0-1.3) Eosinophils # (Auto) 1.1 10 ^3/uL (0-0.8) Basophils # (Auto) 0 10 ^3/uL (0-0.2) Nucleated Red Blood Cells 0.4 % Total Bilirubin 0.5 mg/dL (0.2-1.0) Aspartate Amino Transferase (AST) 18 U/L (13-40) Alanine Aminotransferase (ALT) 22 U/L (7-40) Alkaline Phosphatase 131 U/L (46-116) Total Protein 7.2 g/dL (5.7-8.2) Albumin 4.4 g/dL (3.2-4.8) Parathyroid Hormone (Intact) 19.4 pg/mL (18.4-80.1) Free Thyroxine (T4) Calculated 1.12 ng/dL (0.89-1.76) Total Triiodothyronine (TT3) 0.75 ng/mL (0.60-1.81) Treponema pallidum Antibody Non-reactive (Negative) Hepatitis A IgM Antibody Negative Hepatitis B Surface Antigen Negative (Negative) Hepatitis B Core IgM Antibody Negative (Negative) Hepatitis C Antibody Negative (Negative) HIV (1&2) Antibody Negative (Negative) D-Dimer, Quantitative 1.72 mg/L FEU (0.0-0.49) Test 07/15/25 20:58 07/15/25 17:05 Urine Color Light-yellow (Yellow) Urine Clarity Clear (Clear) Urine pH 7.0 (5.0-9.0) Urine Specific [place] 1.015 (1.001-1.035) Urine Protein Negative (Negative) Urine Ketones Negative (Negative) Urine Blood Negative /uL (Negative) Urine Nitrite Negative (Negative) Urine Bilirubin Negative (Negative) Urine Urobilinogen Normal mg/dL (Negative) Urine Leukocyte Esterase 2+ /uL (Negative) Urine RBC <1 /hpf (0 - 4) Urine Microscopic WBC 1 /HPF (0-5) Urine Squamous Epithelial Cells Few /hpf (<5) Urine Bacteria None seen /hpf (None Seen) Urine Yeast (Budding) Occasional /hpf (None Urine Glucose Normal mg/dL (Normal) Urine Test Negative (Negative) Urine Opiates Screen Pos (NEGATIVE) Urine Fentanyl Screen Pos (NEGATIVE) Urine Barbiturates Screen Neg (NEGATIVE) Urine Phencyclidine Screen Neg (NEGATIVE) Urine Amphetamines Screen Neg (NEGATIVE) Urine Benzodiazepines Screen Pos (NEGATIVE) Urine Cocaine Screen Neg (NEGATIVE) Urine Cannabinoids Screen Neg (NEGATIVE) Prothrombin Time 10.5 sec (9.3-11.8) Prothrombin Time INR 0.99 (0.9-1.15) Activated Partial Thromboplast Time 26.8 SEC (24.5-34.5) Hemoglobin A1c 5.3 % A1C (<5.7) Phosphorus Level 3.7 mg/dL (2.4-5.1) Magnesium Level 1.7 mg/dL (1.6-2.6) Direct Bilirubin < 0.1 mg/dL (<0.3) C-Reactive Protein High Sensitivity 1.34 mg/dL (<1.0) Triglycerides Level 133 mg/dL (< 150) Cholesterol Level 212 mg/dL (< 200) LDL Cholesterol 142 mg/dL (< 100) HDL Cholesterol 66 mg/dL (40-59) Lipase 44 U/L (12-53) Vitamin B12 Level 487 pg/mL (211-911) Vitamin D 25-Hydroxy 35.9 ng/mL (30.0-100) Thyroid Stimulating Hormone (TSH) 0.32 uIU/mL (0.55-4.78) Plasma/Serum Blood Alcohol < 3.0 mg/dL (<10) Other Laboratory Tests 07/19/25 05:28 Brief Hx & Hospital Course: Ms Cyr, a 50-year-old female with a past medical history of asthma and anxiety who presented to the ER with a chief complaint of bilateral lower extremity and left hip pain and swelling. The patient reports that the pain began two months ago and has progressively worsened. She describes the pain as sharp and aggravated by movement. She has difficulty ambulating, resulting in a limp on the left side and eventual inability to walk without support due to decreased motor strength. She also reports associated hair loss and unintentional weight loss of 15 lbs over the past six months. 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 Avascular necrosis of bilateral hips Neural foraminal stenosis Mild cervical degenerative disc disease. Ytga-vu-fptqchpw neural foraminal stenosis C3-4 and C4-[address] did not report lumbar abnormalities Lumbar spine MRI: Moderate lumbar degenerative disc disease predominantly at L4-L5 and L5-S1, disc protrusion at L4-5. Disc protrusion at L5 S1 3 mm. Moderate right and left neutral foraminal stenosis at L4-5 level. Mild neural foraminal stenosis L5-S1. No high-grade spinal canal stenosis. - Pain management with IV Dilaudid and Percocet -muscle relaxant Flexeril started. - spine surgery recommendations appreciated: Effective pain management including muscle relaxants, PT evaluation, safe discharge planning. Outpatient follow up advised. - ortho consulted as per spine surgery recommendations for bilateral hip necrosis DVT ruled out PE ruled out Elevated D-dimer CT angiography of the lung revealed no acute pulmonary embolism. EKG shows sinus tachycardia, premature ventricular complexes, old anteroseptal infarct Lower extremity Doppler negative for DVT Nephrolithiasis - non obstructive Monitor kidney functions Hyperlipidemia Counseled on lifestyle modifications Transaminitis Hepatitis panel ASCVD score is low (3.4%), no need for statins at this point Gave advice on healthy life style habits Polysubstance abuse Patient counseled on cessation for more than 16 minutes DIET: Regular PUD prophylaxis: protonix 40mg DVT prophylaxis: Lovenox 40mg Goals of care: Full code, discussed for >16 minutes on 07/17/25 Plan discussed with patient Plan discussed with Dr. Wright Examination General Appearance: Alert, Oriented X3, Cooperative, Mild distress HEENT: Atraumatic, Mucous membranes moist/pink Respiratory: Clear to auscultation, Normal air movement, No added sounds Cardiovascular: Regular rate, Normal S1, Normal S2, No murmurs Abdominal/ : Active bowel sounds, Soft, no distention, no tenderness Extremities: No edema, Normal pulses, No tenderness/swelling Skin: No Significant rash, except past surgical scars Neuro: Normal speech, sensorimotor deficits none, all reflexes are present and normal, positive leg raise test, no lumbar spine tenderness, tender left hip joint Psych/Mental Status: Mental status NL, Mood NL laboratory and microbiology Laboratory Tests 07/18/25 06:09 Test 07/18/25 06:09 Range/Units Serum Glucose 97 74-106 mg/dL Operations or Procedures PATIENT: JAMI CYR ACCT: [id number] UNIT: [id number] : 1975 LOC: [facility] ROOM / BED: [address] [place] [address] AGE / SEX: 50 / F ADM STATUS: ADM IN SERVICE 2300 ORDERING PHYSICIAN: DYLAN FINN RESIDENT PROCEDURE(s): MSL - LUMBAR SPINE WO CONTRAST REASON: Low back pain ORDER NUMBER(s): [id number], ACCESSION NUMBER(s): [id number] PROCEDURE: MRI LUMBAR SPINE WO CONTRAST Indication: Low back pain COMPARISON: None TECHNIQUE: Multiplanar multisequence images of the the lumbar spine are obtained. FINDINGS: For the purpose of this examination, there are 5 lumbar vertebral body types counting from the lumbosacral junction. The lumbar vertebral body heights are maintained. Moderate multilevel disc space narrowing and desiccation most pronounced at L4-5 and L5-S1. Fatty and edematous endplate changes at L4-5. Conus terminates at the level of the L1 vertebral body level. L1-2: Tiny disc protrusion. Mild facet and flavum hypertrophy. No spinal canal, neural foraminal stenosis. L2-3: Tiny disc protrusion. Mild facet and flavum hypertrophy. No spinal canal, neural foraminal stenosis. L3-4: No disc protrusion. Mild facet and flavum hypertrophy. No spinal canal, neural foraminal stenosis. L4-5: 5 mm disc protrusion. Mild facet and flavum hypertrophy. No spinal canal stenosis. Moderate right and mild left neural foraminal stenosis. L5-S1: 3 mm disc protrusion. Mild facet and flavum hypertrophy. No spinal canal stenosis. Mild bilateral neural foraminal stenosis IMPRESSION: Moderate lumbar degenerative disc disease predominantly at L4-5 and L5-S1. Mm disc protrusion L4-5.3 mm disc protrusion L5-S1 Moderate right and mild left neural foraminal stenosis L4-5. Mild neural foraminal stenosis L5-S1. No high-grade spinal canal stenosis. PATIENT: JAMI CYR ACCT: [id number] UNIT: [id number] : 1975 LOC: [facility] ROOM / BED: [address] [place] [address] AGE / SEX: 50 / F ADM STATUS: ADM IN SERVICE 1421 ORDERING PHYSICIAN: BRENDON EID NP PROCEDURE(s): MNE - CERVICAL WO CONTRAST REASON: cervical radiculopathy ORDER NUMBER(s): [id number], ACCESSION NUMBER(s): [id number] PROCEDURE: MRI CERVICAL WO CONTRAST Indication: cervical radiculopathy COMPARISON: None TECHNIQUE: Multiplanar multisequence images of the the cervical spine are obtained. FINDINGS: The cervical vertebral body heights are maintained. Mild multilevel disc space narrowing and desiccation. No abnormal marrow edema. No prevertebral edema. Atlantooccipital, atlantoaxial articulations intact. C2-3: No spinal canal, neural foraminal stenosis. C3-4: No spinal canal stenosis. Djmk-bx-ufnjtlgn right and mild left neural foraminal stenosis secondary to facet and uncovertebral hypertrophy. C4-5: No spinal canal stenosis. Maqc-gg-vcolfkht right and mild left neural foraminal stenosis secondary to facet and uncovertebral hypertrophy. C5-6: No spinal canal stenosis. Minimal neural foraminal stenosis bilaterally. C6-7: No spinal canal stenosis. No neural foraminal stenosis. C7-T1: No spinal canal, neural foraminal stenosis IMPRESSION: Mild cervical degenerative disc disease. Lgzq-aj-mccllopv neural foraminal stenosis C3-4 and C4-5. No significant spinal canal stenosis PATIENT: JAMI CYR ACCT: [id number] UNIT: [id number] : 1975 LOC: [facility] ROOM / BED: [facility] / A AGE / SEX: 50 / F ADM STATUS: ADM IN SERVICE 1247 ORDERING PHYSICIAN: JAY WILSON PROCEDURE(s): RHIP - R HIP COMPLETE XRAY REASON: hip pain ORDER NUMBER(s): [id number], ACCESSION NUMBER(s): [id number] CLINICAL INDICATION: hip pain TECHNIQUE: 2 radiographic views of the right hip were obtained. Comparison: XY L HIP COMPLETE XRAY on DOS: 07/16/25 FINDINGS/IMPRESSION: Flattening of the left femoral head suggestive of avascular necrosis. ENT: JAMI CYR ACCT: [id number] UNIT: [id number] : 1975 LOC: [facility] / BED: [facility] A AGE / SEX: 50 / F ADM STATUS: ADM IN SERVICE 1229 ORDERING PHYSICIAN: JAY WILSON PROCEDURE(s): LHIP - L HIP COMPLETE XRAY REASON: b/l hip pain ORDER NUMBER(s): [id number], ACCESSION NUMBER(s): [id number] CLINICAL INDICATION: b/l hip pain TECHNIQUE: 1 radiographic views of the pelvis and 2 views of the left hip were obtained. Comparison: XY R HIP COMPLETE XRAY on DOS: 07/16/25, MRI LUMBAR SPINE WO CONTRAST on DOS: 07/16/25 FINDINGS/IMPRESSION: Imaging of the bilateral femoral head suggestive of avascular necrosis PATIENT: JAMI CYR ACCT: [id number] UNIT: [id number] : 1975 LOC: [facility] ROOM / BED: [facility] / A AGE / SEX: 50 / F ADM STATUS: ADM IN SERVICE 1229 ORDERING PHYSICIAN: JAY WILSON RESIDENT PROCEDURE(s): CTACH - CT ANGIO CHEST CONTRAST REASON: well's score elevated, tachy, elevated d-dimer, ?PE ORDER NUMBER(s): [id number], ACCESSION NUMBER(s): [id number] Procedure: CT CT ANGIO CHEST CONTRAST Reason for study/Clinical History: well's score elevated, tachy, elevated d- dimer, PE Comparison Study: None Exam Date: 07/16/2025 01:20 PM Radiation Dose Information: CT Dose: CTDI volume is 6.28 mGy. Dose-length product is 2.89 mGy*cm Contrast: Type of contrast: Omnipaque 300 Contrast inject: 100 Contrast wasted:0 TECHNIQUE: Multidetector spiral CTA of the chest was performed of the chest with intravenous contrast. PULMONARY ANGIOGRAPHY PROTOCOL was utilized using a bolus- tracking technique centered on the main pulmonary artery. Axial, coronal and sagittal multiplanar and MIP reformats were performed. The dose indicators for CT are the volume Computed Tomography (CT) Dose Index (CTDIvol) and the Dose Length Product (DLP), and are measured in units of mGy and mGy-cm, respectively. These indicators are not patient dose, but values generated from the CT scanner acquisition factors. The report includes radiation exposure data for exposures received during this examination. FINDINGS: No acute pulmonary embolism. Lower Neck: Visualized portions of the thyroid gland are unremarkable. Aorta and Vasculature: Normal caliber of thoracic aorta. Lymph Nodes: No enlarged intrathoracic lymph nodes. Mediastinum: Heart size is normal. There is no pericardial effusion. The esophagus is unremarkable. Lungs: No focal consolidation, pleural effusion or significant pneumothorax. No suspicious pulmonary nodule or mass. Musculoskeletal: No acute osseous abnormality. Upper abdomen: Limited portions of the upper abdomen are unremarkable. IMPRESSION: 1. No acute pulmonary embolism. All CT scans at this medical facility are performed using dose modulation techniques as appropriate to a performed exam including the following: Automated exposure control was utilized; adjustment of the MA and/or KV according to patient size; and use of iterative reconstruction technique. PATIENT: JAMI CYR ACCT: [id number] UNIT: [id number] : 1975 LOC: ER ROOM / BED: / AGE / SEX: 50 / F ADM STATUS: REG ER SERVICE 1433 ORDERING PHYSICIAN: DIOGENES DENT MD PROCEDURE(s): BLDVT - BiLat Lower DVT REASON: leg swelling ORDER NUMBER(s): [id number], ACCESSION NUMBER(s): [id number] Bilateral lower extremity venous duplex Clinical History: leg swelling Comparison: None Technique: Duplex Doppler evaluation of the deep venous systems of both lower extremities from the common femoral veins to the popliteal veins including color Doppler and spectral/pulsed waveform analysis was performed. Findings: RIGHT SIDE: The common femoral vein demonstrates appropriate compressibility and waveform variability. There is compressibility/patency of the great saphenous vein at the proximal thigh. The femoral vein demonstrates appropriate compressibility and waveform variability. The deep femoral vein demonstrates appropriate compressibility and waveform variability. The popliteal vein demonstrates appropriate compressibility and waveform variability. There is normal compressibility at the tibioperoneal trunk. LEFT SIDE: The common femoral vein demonstrates appropriate compressibility and waveform variability. There is compressibility/patency of the great saphenous vein at the proximal thigh. The femoral vein demonstrates appropriate compressibility and waveform variability. The deep femoral vein demonstrates appropriate compressibility and waveform variability. The popliteal vein demonstrates appropriate compressibility and waveform variability. There is normal compressibility at the tibioperoneal trunk. Impression: No right or left femoropopliteal venous thrombosis. PATIENT: JAMI CYR ACCT: [id number] UNIT: [id number] : 1975 LOC: ER ROOM / BED: / AGE / SEX: 50 / F ADM STATUS: REG ER SERVICE 1433 ORDERING PHYSICIAN: DIOGENES DENT MD PROCEDURE(s): ABPL - CT AB PEL WO CON-NO ORAL OR IV REASON: low abd pain ORDER NUMBER(s): [id number], ACCESSION NUMBER(s): [id number] Exam: CT CT AB PEL WO CON-NO ORAL OR IV History: low abd pain Comparison Study: None Technique: Multidetector spiral CT of the abdomen was performed from lung bases to pubic symphysis. Imaging was performed without IV contrast. Axial, coronal and sagittal multiplanar reformats were obtained from the axial data set by the technologist. Radiation Dose : 1. Abdomen/Pelvis: CTDIvol 6.3 mGy, DLP 342 mGy*cm. Findings: Evaluation of solid organs is limited due to lack of intravenous contrast use. Lung Bases: No acute or significant lung base finding. Normal heart size. No pleural or pericardial effusion. Liver: The liver is normal in size. No focal lesions. Gallbladder and Biliary Tree: Unremarkable Spleen: Unremarkable Pancreas: The pancreas is grossly normal in appearance. Adrenal Glands: Unremarkable Kidneys: 2 mm stone is seen in the lower pole of the right kidney. No hydronephrosis. Bladder: Grossly unremarkable for degree of distention. Bowel: The stomach is grossly normal in appearance. Small bowel and colon are normal in caliber and distribution. The appendix is not visualized; however, no secondary findings of acute appendicitis identified. Moderate to large colonic stool burden. Ascites: Absent Lymphadenopathy: No mesenteric, retroperitoneal or periportal lymphadenopathy. Abdominal Wall and Mesentery: Unremarkable. Vasculature: The visualized abdominal aorta is normal in size and caliber. Evaluation of abdominal and pelvic vessels is limited due to lack of intravenous contrast. Pelvic Organs: Unremarkable Musculoskeletal: No aggressive focal bony lesions, acute fractures or dislocation. IMPRESSION: 1. Nonobstructing right renal stone. 2. Moderate to large colonic stool burden. Radiation optimization: All CT scans at this facility use at least one of these dose optimization techniques: automated exposure control mA and/or kV adjustment per patient size (includes targeted exams where dose is matched to clinical indication) or iterative reconstruction. Condition at Discharge: Stable Discharge Instruct/Medications Scheduled PRN Oxycodone W/ Acetaminophen (Percocet 5/325MG), 1 TAB PO QID PRN Miscellaneous Medications [Albuterol Sul0.083 %], %, (Reported) [Alprazolam2 Mg], MG, (Reported) [Amphetamine/Dex30 Mg], MG, (Reported) [Diazepam5 Mg], MG, (Reported) [Hydrocodone/Ace1 Tab], TAB, (Reported) [Proair Hfa 90 Mcg Inhaler], (Reported) [Tramadol Hcl50 Mg], MG, (Reported) Discharge Statement: "Patient was advised to return to the ER or call 911 if any headaches, dizziness, shortness of breath, chest pain, abdominal pain, bleeding, fevers, or worsening of medical condition. Patient was counseled about treatment plan, medications, possible side effects, patientverbalized understanding. All questions were answered to the best of my ability. This discharge took greater then 30 minutes in planning, reviewing documentation, counseling the patient, and discussing with other team members." ASSESSMENT ASSESSMENT Assessment WAQAS NGUYEN RESIDENT Jul 19, 2025 06:32
[2025-07-19 06:34] LABS: Chloride 106 mmol/L (98-107); Potassium 3.9 mmol/L (3.5-5.1); Sodium 143 mmol/L (136-145)
[2025-07-19 06:35] LABS: Anion Gap 10 (5-15); Calcium 9.9 mg/dL (8.7-10.4); Carbon Dioxide 27 mmol/L (20-31)
[2025-07-19 06:40] LABS: BUN/Creatinine Ratio 26.2 (10.0-20.0); Blood Urea Nitrogen 17 mg/dL (9-23); Glucose 104 mg/dL (74-106)
[2025-07-19] MEDS: PANTOPRAZOLE 40 MG TAB PO ONE (08:15)
--- NOTE | 2025-07-19 18:12 | DVHPNRES ---
Progress Note Date Seen: Jul 19, 2025 Resident Creating Document: WAQAS NGUYEN RESIDENT Medical Necessity Reason Pt with a Central, PICC or Fol: No (RN) Subjective Review of Systems Ms Cyr, 50-year-old female with a past medical history of asthma and anxiety who presented to the ER with a chief complaint of bilateral lower extremity and left hip pain and swelling. The patient reports that the pain began two months ago and has progressively worsened. She describes the pain as sharp and aggravated by movement. She has difficulty ambulating, resulting in a limp on the left side and eventual inability to walk without support due to decreased motor strength. She also reports associated hair loss and unintentional weight loss of 15 lbs over the past six months. 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 The patient was seen and examined at bedside. Overnight events were reviewed. She reports having left-sided pain 07/23. Her usual home dose of oxycodone was added. No new complaints reported. Objective vital signs Vital Sign Date Time Temp Pulse Resp B/P (MAP) Pulse Ox O2 Delivery O2 Flow Rate FiO2 07/19/25 17:00 98.5 107 12 111/90 (97) 95 98.5 07/18/25 20:00 Room Air* 0 21 Total Intake and Output 07/18/25 07/18/25 07/19/25 15:00 23:00 07:00 Intake Total 600 ml 800 ml Balance 600 ml 800 ml medications Current Medications Medications Dose Ordered Sig/Eli Route Start Time Stop Time Status Last Admin Dose Admin Acetaminophen 325 mg Q4HP PRN PO 07/15/25 22:15 Ondansetron HCl 4 mg Q4HP PRN IV 07/15/25 22:15 Enoxaparin Sodium 40 mg DAILY SC 07/15/25 22:15 07/19/25 10:23 40 MG Lidocaine 1 patch DAILY TOP 07/16/25 10:00 07/19/25 10:22 1 PATCH Polyethylene Glycol 17 gm DAILY PO 07/17/25 10:07/19/25 10:23 17 GM Cyclobenzaprine HCl 5 mg TID PO 07/18/25 14:00 07/19/25 15:03 5 MG Hydromorphone HCl 0.5 mg Q4HPRN PRN IV 07/19/25 08:15 07/19/25 15:05 0.5 MG Pantoprazole Sodium 40 mg DAILY@0600 PO 07/20/25 06:00 Oxycodone HCl 15 mg Q12HR PO 07/19/25 10:00 07/19/25 10:23 15 MG Examination Examination General Appearance: Alert, Oriented X3, Cooperative, Mild distress HEENT: Atraumatic, Mucous membranes moist/pink Respiratory: Clear to auscultation, Normal air movement, No added sounds Cardiovascular: Regular rate, Normal S1, Normal S2, No murmurs Abdominal/ : Active bowel sounds, Soft, no distention, no tenderness Extremities: No edema, Normal pulses, No tenderness/swelling Skin: No Significant rash, except past surgical scars Neuro: Normal speech, sensorimotor deficits none, all reflexes are present and normal, positive leg raise test, no lumbar spine tenderness, tender left hip joint Psych/Mental Status: Mental status NL, Mood NL laboratory and microbiology Laboratory Tests 07/19/25 05:28 Test 07/19/25 05:28 Range/Units Serum Glucose 104 74-106 mg/dL Labs and/or images reviewed: Labs reviewed by me, Image(s) reviewed by me Problem List/Assessment/Plan Problem List/Assessment/Plan Problem List/Assessment/Plan 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 Oolz-nc-ndblruhw neural foraminal stenosis C3-4 and C4-[address] did not report lumbar abnormalities Lumbar spine MRI: Moderate lumbar degenerative disc disease predominantly at L4-L5 and L5-S1, disc protrusion at L4-5. Disc protrusion at L5 S1 3 mm. Moderate right and left neutral foraminal stenosis at L4-5 level. Mild neural foraminal stenosis L5-S1. No high-grade spinal canal stenosis. - Pain management with IV Dilaudid and Percocet -muscle relaxant Flexeril started. - spine surgery recommendations appreciated: Effective pain management including muscle relaxants, PT evaluation, safe discharge planning. Outpatient follow up advised. - ortho consulted as per spine surgery recommendations for bilateral hip necrosis -oxycodone 15 mg p.o. b.i.d. daily DVT ruled out PE ruled out Elevated D-dimer CT angiography of the lung revealed no acute pulmonary embolism. EKG shows sinus tachycardia, premature ventricular complexes, old anteroseptal infarct Lower extremity Doppler negative for DVT Nephrolithiasis - non obstructive Monitor kidney functions Hyperlipidemia Counseled on lifestyle modifications Transaminitis Hepatitis panel ASCVD score is low (3.4%), no need for statins at this point Gave advice on healthy life style habits Polysubstance abuse Patient counseled on cessation for more than 16 minutes GI prophylaxis: Pantoprazole DVT prophylaxis: Lovenox Goals of care discussed with the patient for more than 27 minutes: Full code status Case discussed with Dr. Ferro , patient and RN Plan discussed with: Patient, Other Dietary Evaluation Review Recommendations by RD: Protein Supplementation Comments: 1) Initiate Ensure High Protein qd 2) Initiate cardiac diet when medically feasible 3) Refer to outpatient RD for wegiht management 4) Follow-up with orthopedic surgeon 5) Follow-up with social work nurse r/t polysubstance abuse 6) Continue to monitor I&O, labs, and skin integrity Expected Outcomes/Goals: 1) appetite and labs to improve 2) gradual wt loss 3) f/u in 3-5 days Date of Service: Jul 19, 2025 Billing Provider: AUGUSTINA FERRO MD Common Visit Codes: [id number] INP/OBS CARE(HIGH) WAQAS NGUYEN RESIDENT Jul 19, 2025 18:12 AUGUSTINA FERRO MD Jul 21, 2025 20:37
--- NOTE | 2025-07-19 19:31 | DVHINCON2 ---
Consult Note Consult Consult Note History of Present Illness: The patient is evaluated today for chronic bilateral hip pain with recent worsening over the past 34 months. The patient denies any recent trauma, falls, or congenital hip conditions. She reports a history of systemic prednisone use during childhood for asthma management, but no recent corticosteroid use, no trauma to bilateral hip, no Sickle cell disease, no Autoimmune disorder, no radiation or chemo or alcohol use or abuse reported. She describes persistent pain with weight-bearing and increasing difficulty ambulating. Imaging: X-rays of both hips were reviewed today and demonstrate findings consistent with avascular necrosis (AVN) of the bilateral femoral heads. No acute fracture or dislocation is noted. Physical Examination: bilateral hip Inspection: No erythema, warmth, or gross deformity. Palpation: Tenderness noted over the groin bilaterally. Range of Motion: Limited due to pain. Special Tests: TIEN and FADIR tests positive bilaterally; log roll maneuver elicits pain. Neurovascular: Intact distally. Patient was ok with exam without showroom salesperson, palpation and exam after oral permission from patient.Patient fully gowned during exam Assessment: 1. Avascular necrosis of bilateral femoral heads, chronic with recent progression. 2. Chronic bilateral hip pain, worsening with activity and weight-bearing. Plan: Discussed imaging findings and diagnosis with the patient in detail. Explained that total hip arthroplasty (hip replacement) is the definitive treatment for end-stage AVN with persistent pain and functional limitation. Pain Management: Recommend inpatient pain control per hospitalist team and referral to outpatient Pain Management for ongoing care. Follow-Up: Outpatient follow-up with Orthopedics for preoperative evaluation and surgical planning once pain is stabilized. Weight-bearing as tolerated with assistive device for comfort. All patient questions addressed; patient verbalized understanding of diagnosis and treatment plan. Dr. Maldonado Agree with above plan Plan discussed with: Patient, Other (bedside nurse) Visit Coding Surgery Date of Service if different f: Jul 19, 2025 Billing Provider: ASHISH DAMON Surgery Visit Codes: 29880 - INP CONSULT <55 MIN ASHISH DAMON Jul 19, 2025 19:31
[2025-07-20] VITALS (8 sets, daily range): BP systolic 104–139; BP diastolic 71–84; PULSE 93–116; RESP 14–20; TEMP 97.7–98.7; O2SAT 95–100
[2025-07-20] MEDS: PANTOPRAZOLE 40 MG TAB PO SCH (06:22)
[2025-07-20] MEDS: OXYCODONE W/ ACETAMINOPHEN 5/325MG TABLET PO PRN (12:46)
[2025-07-20 13:37] LABS: Hematocrit 37.8 % (36.0-46.0); Hemoglobin 12.5 g/dL (12.2-16.2); Mean Corpuscular Hemoglobin 29.2 pg (28.0-32.0); Mean Corpuscular Volume 88.2 fL (80.0-100.0); Nucleated Red Blood Cells % 0.1 %
[2025-07-20 13:49] LABS: Chloride 103 mmol/L (98-107); Potassium 4.1 mmol/L (3.5-5.1); Sodium 141 mmol/L (136-145)
[2025-07-20 13:50] LABS: Anion Gap 12 (5-15); Calcium 10.0 mg/dL (8.7-10.4); Carbon Dioxide 26 mmol/L (20-31)
[2025-07-20 13:55] LABS: BUN/Creatinine Ratio 18.3 (10.0-20.0); Blood Urea Nitrogen 13 mg/dL (9-23)
[2025-07-20 13:59] LABS: Glucose 113 mg/dL (74-106)
[2025-07-20] MEDS: HYDROmorphone HCL 2 MG/ML VL/or syr IV ONE ×2 (16:03→23:28)
--- NOTE | 2025-07-20 18:33 | DVHPNRES ---
Progress Note Date Seen: Jul 20, 2025 Resident Creating Document: WAQAS NGUYEN RESIDENT Medical Necessity Reason Pt with a Central, PICC or Fol: No (RN) Subjective Review of Systems Ms Cyr, 50-year-old female with a past medical history of asthma and anxiety who presented to the ER with a chief complaint of bilateral lower extremity and left hip pain and swelling. The patient reports that the pain began two months ago and has progressively worsened. She describes the pain as sharp and aggravated by movement. She has difficulty ambulating, resulting in a limp on the left side and eventual inability to walk without support due to decreased motor strength. She also reports associated hair loss and unintentional weight loss of 15 lbs over the past six months. 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 Patient was seen and examined at bedside. Overnight events were reviewed. She reports having 10/10 left hip pain, no new complaints reported. Objective vital signs Vital Sign Date Time Temp Pulse Resp B/P (MAP) Pulse Ox O2 Delivery O2 Flow Rate FiO2 07/20/25 17:00 97.7 100 17 111/81 (91) 96 97.7 07/20/25 08:00 Room Air* 0 21 Total Intake and Output 07/19/25 07/19/25 07/20/25 15:00 23:00 07:00 Intake Total 1820 ml 1500 ml Balance 1820 ml 1500 ml medications Current Medications Medications Dose Ordered Sig/Eli Route Start Time Stop Time Status Last Admin Dose Admin Acetaminophen 325 mg Q4HP PRN PO 07/15/25 22:15 Ondansetron HCl 4 mg Q4HP PRN IV 07/15/25 22:15 Enoxaparin Sodium 40 mg DAILY SC 07/15/25 22:15 07/20/25 08:53 40 MG Lidocaine 1 patch DAILY TOP 07/16/25 10:00 07/20/25 08:52 1 PATCH Polyethylene Glycol 17 gm DAILY PO 07/17/25 10:00 07/20/25 08:51 17 GM Cyclobenzaprine HCl 5 mg TID PO 07/18/25 14:00 07/20/25 14:19 5 MG Pantoprazole Sodium 40 mg DAILY@0600 PO 07/20/25 06:00 07/20/25 06:22 40 MG Oxycodone HCl 15 mg Q12HR PO 07/19/25 10:00 07/20/25 10:44 15 MG Oxycodone/ Acetaminophen 1 tab Q6HP PRN PO 07/20/25 10:45 07/20/25 12:46 1 TAB Examination Examination General Appearance: Alert, Oriented X3, Cooperative, Mild distress HEENT: Atraumatic, Mucous membranes moist/pink Respiratory: Clear to auscultation, Normal air movement, No added sounds Cardiovascular: Regular rate, Normal S1, Normal S2, No murmurs Abdominal/ : Active bowel sounds, Soft, no distention, no tenderness Extremities: No edema, Normal pulses, No tenderness/swelling Skin: No Significant rash, except past surgical scars Neuro: Normal speech, sensorimotor deficits none, all reflexes are present and normal, positive leg raise test, no lumbar spine tenderness, tender left hip joint Psych/Mental Status: Mental status NL, Mood NL laboratory and microbiology Laboratory Tests 07/20/25 13:14 Test 07/20/25 13:14 Range/Units Serum Glucose 113 H 74-106 mg/dL Labs and/or images reviewed: Labs reviewed by me, Image(s) reviewed by me Problem List/Assessment/Plan Problem List/Assessment/Plan 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 [id number] neural foraminal stenosis C3-4 and C4-[address] did not report lumbar abnormalities Lumbar spine MRI: Moderate lumbar degenerative disc disease predominantly at L4-L5 and L5-S1, disc protrusion at L4-5. Disc protrusion at L5 S1 3 mm. Moderate right and left neutral foraminal stenosis at L4-5 level. Mild neural foraminal stenosis L5-S1. No high-grade spinal canal stenosis. - Pain management with IV Dilaudid and Percocet. IV Dilaudid discontinued. -muscle relaxant Flexeril started. - spine surgery recommendations appreciated: Effective pain management including muscle relaxants, PT evaluation, safe discharge planning. Outpatient follow up advised. - ortho consulted as per spine surgery recommendations for bilateral hip necrosis: Pain management and outpatient follow up recommended. -oxycodone 15 mg p.o. b.i.d. daily DVT ruled out PE ruled out Elevated D-dimer CT angiography of the lung revealed no acute pulmonary embolism. EKG shows sinus tachycardia, premature ventricular complexes, old anteroseptal infarct Lower extremity Doppler negative for DVT Nephrolithiasis - non obstructive Monitor kidney functions Hyperlipidemia Counseled on lifestyle modifications Transaminitis Hepatitis panel ASCVD score is low (3.4%), no need for statins at this point Gave advice on healthy life style habits Polysubstance abuse Patient counseled on cessation for more than 16 minutes GI prophylaxis: Pantoprazole DVT prophylaxis: Lovenox Goals of care discussed with the patient for more than 27 minutes: Full code status Case discussed with Dr. Ferro , patient and RN Plan discussed with: Patient, Other (RN) Dietary Evaluation Review Recommendations by RD: Protein Supplementation Comments: 1) Initiate Ensure High Protein qd 2) Initiate cardiac diet when medically feasible 3) Refer to outpatient RD for wegiht management 4) Follow-up with orthopedic surgeon 5) Follow-up with social worker masters r/t polysubstance abuse 6) Continue to monitor I&O, labs, and skin integrity Expected Outcomes/Goals: 1) appetite and labs to improve 2) gradual wt loss 3) f/u in 3-5 days Date of Service: Jul 20, 2025 Billing Provider: AUGUSTINA FERRO MD Common Visit Codes: [id number] INP/OBS CARE(MOD) WAQAS NGUYEN RESIDENT Jul 20, 2025 18:33 AUGUSTINA FERRO MD Jul 21, 2025 20:38
[2025-07-21] VITALS (8 sets, daily range): BP systolic 99–123; BP diastolic 70–84; PULSE 85–109; RESP 17–20; TEMP 97.6–98.7; O2SAT 96–98
--- NOTE | 2025-07-21 19:34 | DVHPNRES ---
Progress Note Date Seen: Jul 21, 2025 Resident Creating Document: WAQAS NGUYEN RESIDENT Medical Necessity Reason Pt with a Central, PICC or Fol: No (RN) Subjective Review of Systems Ms Cyr, 50-year-old female with a past medical history of asthma and anxiety who presented to the ER with a chief complaint of bilateral lower extremity and left hip pain and swelling. The patient reports that the pain began two months ago and has progressively worsened. She describes the pain as sharp and aggravated by movement. She has difficulty ambulating, resulting in a limp on the left side and eventual inability to walk without support due to decreased motor strength. She also reports associated hair loss and unintentional weight loss of 15 lbs over the past six months. 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 Patient was seen and examined at bedside. Overnight events were reviewed. She reports having 10/10 left hip pain, long-term management of patient's pain was discussed. However patient requested IV Dilaudid on discharge. Patient was counseled on pain management. Patient was encouraged to do cooperate with physical therapy in order to qualify for SNF. She is unable to move to the chair from bed according to the patient. No new complaints reported. Objective vital signs Vital Sign Date Time Temp Pulse Resp B/P (MAP) Pulse Ox O2 Delivery O2 Flow Rate FiO2 07/21/25 17:00 98.7 94 18 123/84 (97) 97 98.7 07/21/25 08:00 Room Air* 0 21 Total Intake and Output 07/20/25 07/20/25 07/21/25 15:00 23:00 07:00 Intake Total 800 ml 400 ml Balance 800 ml 400 ml medications Current Medications Medications Dose Ordered Sig/Eli Route Start Time Stop Time Status Last Admin Dose Admin Acetaminophen 325 mg Q4HP PRN PO 07/15/25 22:15 Ondansetron HCl 4 mg Q4HP PRN IV 07/15/25 22:15 Enoxaparin Sodium 40 mg DAILY SC 07/15/25 22:15 07/21/25 09:27 40 MG Lidocaine 1 patch DAILY TOP 07/16/25 10:00 07/21/25 09:29 1 PATCH Polyethylene Glycol 17 gm DAILY PO 07/17/25 10:00 07/21/25 09:26 17 GM Pantoprazole Sodium 40 mg DAILY@0600 PO 07/20/25 06:00 07/21/25 05:50 40 MG Oxycodone HCl 20 mg Q12HR PO 07/21/25 10:00 07/21/25 09:29 20 MG Oxycodone/ Acetaminophen 2 tab Q6HP PRN PO 07/21/25 15:00 Examination Examination General Appearance: Alert, Oriented X3, Cooperative, Mild distress HEENT: Atraumatic, Mucous membranes moist/pink Respiratory: Clear to auscultation, Normal air movement, No added sounds Cardiovascular: Regular rate, Normal S1, Normal S2, No murmurs Abdominal/ : Active bowel sounds, Soft, no distention, no tenderness Extremities: No edema, Normal pulses, No tenderness/swelling Skin: No Significant rash, except past surgical scars Neuro: Normal speech, sensorimotor deficits none, all reflexes are present and normal, positive leg raise test, no lumbar spine tenderness, tender left hip joint Psych/Mental Status: Mental status NL, Mood NL laboratory and microbiology Laboratory Tests 07/20/25 13:14 Test 07/20/25 13:14 Range/Units Serum Glucose 113 H 74-106 mg/dL Labs and/or images reviewed: Labs reviewed by me, Image(s) reviewed by me Problem List/Assessment/Plan Problem List/Assessment/Plan 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 [id number] neural foraminal stenosis C3-4 and C4-[address] did not report lumbar abnormalities Lumbar spine MRI: Moderate lumbar degenerative disc disease predominantly at L4-L5 and L5-S1, disc protrusion at L4-5. Disc protrusion at L5 S1 3 mm. Moderate right and left neutral foraminal stenosis at L4-5 level. Mild neural foraminal stenosis L5-S1. No high-grade spinal canal stenosis. - Pain management with IV Dilaudid and Percocet. IV Dilaudid discontinued. -muscle relaxant Flexeril started. - spine surgery recommendations appreciated: Effective pain management including muscle relaxants, PT evaluation, safe discharge planning. Outpatient follow up advised. - ortho consulted as per spine surgery recommendations for bilateral hip necrosis: Pain management and outpatient follow up recommended. -oxycodone increased to 20 mg, will be given Q 6 DVT ruled out PE ruled out Elevated D-dimer CT angiography of the lung revealed no acute pulmonary embolism. EKG shows sinus tachycardia, premature ventricular complexes, old anteroseptal infarct Lower extremity Doppler negative for DVT Nephrolithiasis - non obstructive Monitor kidney functions Hyperlipidemia Counseled on lifestyle modifications Transaminitis Hepatitis panel ASCVD score is low (3.4%), no need for statins at this point Gave advice on healthy life style habits Polysubstance abuse Patient counseled on cessation for more than 16 minutes Social Patient to be discharged at SNF with physical therapy. GI prophylaxis: Pantoprazole DVT prophylaxis: Lovenox Goals of care discussed with the patient for more than 27 minutes: Full code status Case discussed with Dr. Ferro , patient and RN Plan discussed with: Patient, Other (RN) Plan discussed with: Patient, Other Dietary Evaluation Review Recommendations by RD: Protein Supplementation Comments: 1) Initiate Ensure High Protein qd 2) Initiate cardiac diet when medically feasible 3) Refer to outpatient RD for wegiht management 4) Follow-up with orthopedic surgeon 5) Follow-up with home health care social worker r/t polysubstance abuse 6) Continue to monitor I&O, labs, and skin integrity Expected Outcomes/Goals: 1) appetite and labs to improve 2) gradual wt loss 3) f/u in 3-5 days Date of Service: Jul 21, 2025 Billing Provider: AUGUSTINA FERRO MD Common Visit Codes: [id number] INP/OBS CARE(HIGH) WAQAS NGUYEN RESIDENT Jul 21, 2025 19:34 AUGUSTINA FERRO MD Jul 21, 2025 20:38
[2025-07-22] VITALS (9 sets, daily range): BP systolic 100–134; BP diastolic 66–90; PULSE 73–103; RESP 17–18; TEMP 97.4–98.3; O2SAT 95–98
[2025-07-22] MEDS: OXYCODONE W/ ACETAMINOPHEN 5/325MG TABLET PO PRN (01:14)
[2025-07-22] MEDS: ALPRAZolam 0.25 MG TAB PO ONE (03:41)
--- NOTE | 2025-07-22 19:11 | DVHPNRES ---
Progress Note Date Seen: Jul 22, 2025 Resident Creating Document: WAQAS NGUYEN RESIDENT Medical Necessity Reason Pt with a Central, PICC or Fol: No (RN) Objective vital signs Vital Sign Date Time Temp Pulse Resp B/P (MAP) Pulse Ox O2 Delivery O2 Flow Rate FiO2 07/22/25 17:06 98.3 103 18 107/66 (80) 95 98.3 07/22/25 07:45 Room Air* 0 21 Total Intake and Output 07/21/25 07/21/25 07/22/25 15:00 23:00 07:00 Intake Total 1240 ml 400 ml Balance 1240 ml 400 ml medications Current Medications Medications Dose Ordered Sig/Eli Route Start Time Stop Time Status Last Admin Dose Admin Acetaminophen 325 mg Q4HP PRN PO 07/15/25 22:15 Ondansetron HCl 4 mg Q4HP PRN IV 07/15/25 22:15 Enoxaparin Sodium 40 mg DAILY SC 07/15/25 22:15 07/22/25 09:44 40 MG Lidocaine 1 patch DAILY TOP 07/16/25 10:00 07/22/25 09:44 1 PATCH Polyethylene Glycol 17 gm DAILY PO 07/17/25 10:00 07/22/25 09:44 17 GM Pantoprazole Sodium 40 mg DAILY@0600 PO 07/20/25 06:00 07/22/25 05:38 40 MG Oxycodone HCl 20 mg Q12HR PO 07/21/25 10:00 07/22/25 09:43 20 MG Oxycodone/ Acetaminophen 2 tab Q6HP PRN PO 07/21/25 15:00 07/22/25 18:27 2 TAB laboratory and microbiology Laboratory Tests 07/20/25 13:14 Test 07/20/25 13:14 Range/Units Serum Glucose 113 H 74-106 mg/dL Problem List/Assessment/Plan Problem List/Assessment/Plan 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 [id number] neural foraminal stenosis C3-4 and C4-[address] did not report lumbar abnormalities Lumbar spine MRI: Moderate lumbar degenerative disc disease predominantly at L4-L5 and L5-S1, disc protrusion at L4-5. Disc protrusion at L5 S1 3 mm. Moderate right and left neutral foraminal stenosis at L4-5 level. Mild neural foraminal stenosis L5-S1. No high-grade spinal canal stenosis. - Pain management with IV Dilaudid and Percocet. IV Dilaudid discontinued. -muscle relaxant Flexeril started. - spine surgery recommendations appreciated: Effective pain management including muscle relaxants, PT evaluation, safe discharge planning. Outpatient follow up advised. - ortho consulted as per spine surgery recommendations for bilateral hip necrosis: Pain management and outpatient follow up recommended. -oxycodone increased to 20 mg, will be given Q 6 DVT ruled out PE ruled out Elevated D-dimer CT angiography of the lung revealed no acute pulmonary embolism. EKG shows sinus tachycardia, premature ventricular complexes, old anteroseptal infarct Lower extremity Doppler negative for DVT Nephrolithiasis - non obstructive Monitor kidney functions Hyperlipidemia Counseled on lifestyle modifications Transaminitis Hepatitis panel ASCVD score is low (3.4%), no need for statins at this point Gave advice on healthy life style habits Polysubstance abuse Patient counseled on cessation for more than 16 minutes Social Patient to be discharged at SNF with physical therapy. GI prophylaxis: Pantoprazole DVT prophylaxis: Lovenox Goals of care discussed with the patient for more than 27 minutes: Full code status Case discussed with Dr. Wright , patient and RN Plan discussed with: Patient, Other (RN) My Orders My Orders Orders - WAQAS NGUYEN Procedure Category Date Status Time * Manager Career CONS 07/22/25 Transmitted Consult 10:51 Discharge DISCHARGE 07/22/25 Transmitted 10:51 Dietary Evaluation Review Recommendations by RD: Protein Supplementation Comments: 1) Initiate Ensure High Protein qd 2) Initiate cardiac diet when medically feasible 3) Refer to outpatient RD for wegiht management 4) Follow-up with orthopedic surgeon 5) Follow-up with elementary school social worker r/t polysubstance abuse 6) Continue to monitor I&O, labs, and skin integrity Expected Outcomes/Goals: 1) appetite and labs to improve 2) gradual wt loss 3) f/u in 3-5 days WAQAS NGUYEN Jul 22, 2025 19:11
[2025-07-22] MEDS: HYDROmorphone HCL 2 MG/ML VL/or syr IV ONE (21:21)
--- NOTE | 2025-07-23 06:24 | DVHDSRES ---
Discharge Summary Date of Admission Resident Creating Document: WAQAS NGUYEN Jul 15, 2025 at 22:13 Date of Discharge: Jul 23, 2025 Admitting Diagnosis Chronic back pain due to spinal cord compression Labs/Diagnostic Data: Laboratory Results Test 07/20/25 13:14 07/16/25 06:21 07/15/25 23:57 07/15/25 23:06 White Blood Count 12.0 10^3/uL (4.4-10.8) Red Blood Count 4.29 10^6/uL (4.0-5.20) Hemoglobin 12.5 g/dL (12.2-16.2) Hematocrit 37.8 % (36.0-46.0) Mean Corpuscular Volume 88.2 fL (80.0-100.0) Mean Corpuscular Hemoglobin 29.2 pg (28.0-32.0) Mean Corpuscular Hemoglobin Concent 33.1 g/dL (32.0-36.0) Red Cell Distribution Width 15.4 % (11.8-14.3) Platelet Count 437 10^3/uL (140-450) Mean Platelet Volume 6.9 fL (6.9-10.8) Neutrophils (%) (Auto) 54.1 % (37.0-80.0) Lymphocytes (%) (Auto) 30.2 % (10.0-50.0) Monocytes (%) (Auto) 5.4 % (0.0-12.0) Eosinophils (%) (Auto) 9.6 % (0.0-7.0) Basophils (%) (Auto) 0.7 % (0.0-2.0) Neutrophils # (Auto) 6.5 10 ^3/uL (1.6-8.6) Lymphocytes # (Auto) 3.6 10 ^3/uL (0.4-5.4) Monocytes # (Auto) 0.6 10 ^3/uL (0-1.3) Eosinophils # (Auto) 1.1 10 ^3/uL (0-0.8) Basophils # (Auto) 0.1 10 ^3/uL (0-0.2) Nucleated Red Blood Cells 0.1 % Sodium Level 141 mmol/L (136-145) Potassium Level 4.1 mmol/L (3.5-5.1) Chloride Level 103 mmol/L (98-107) Carbon Dioxide Level 26 mmol/L (20-31) Anion Gap 12 (5-15) Blood Urea Nitrogen 13 mg/dL (9-23) Creatinine 0.71 mg/dL (0.550-1.02) Glomerular Filtration Rate Calc 104 mL/min (>90) BUN/Creatinine Ratio 18.3 (10.0-20.0) Serum Glucose 113 mg/dL (74-106) Calcium Level 10.0 mg/dL (8.7-10.4) Total Bilirubin 0.5 mg/dL (0.2-1.0) Aspartate Amino Transferase (AST) 18 U/L (13-40) Alanine Aminotransferase (ALT) 22 U/L (7-40) Alkaline Phosphatase 131 U/L (46-116) Total Protein 7.2 g/dL (5.7-8.2) Albumin 4.4 g/dL (3.2-4.8) Parathyroid Hormone (Intact) 19.4 pg/mL (18.4-80.1) Free Thyroxine (T4) Calculated 1.12 ng/dL (0.89-1.76) Total Triiodothyronine (TT3) 0.75 ng/mL (0.60-1.81) Treponema pallidum Antibody Non-reactive (Negative) Hepatitis A IgM Antibody Negative Hepatitis B Surface Antigen Negative (Negative) Hepatitis B Core IgM Antibody Negative (Negative) Hepatitis C Antibody Negative (Negative) HIV (1&2) Antibody Negative (Negative) D-Dimer, Quantitative 1.72 mg/L FEU (0.0-0.49) Test 07/15/25 20:58 07/15/25 17:05 Urine Color Light-yellow (Yellow) Urine Clarity Clear (Clear) Urine pH 7.0 (5.0-9.0) Urine Specific Burns 1.015 (1.001-1.035) Urine Protein Negative (Negative) Urine Ketones Negative (Negative) Urine Blood Negative /uL (Negative) Urine Nitrite Negative (Negative) Urine Bilirubin Negative (Negative) Urine Urobilinogen Normal mg/dL (Negative) Urine Leukocyte Esterase 2+ /uL (Negative) Urine RBC <1 /hpf (0 - 4) Urine Microscopic WBC 1 /HPF (0-5) Urine Squamous Epithelial Cells Few /hpf (<5) Urine Bacteria None seen /hpf (None Seen) Urine Yeast (Budding) Occasional /hpf (None Urine Glucose Normal mg/dL (Normal) Urine Test Negative (Negative) Urine Opiates Screen Pos (NEGATIVE) Urine Fentanyl Screen Pos (NEGATIVE) Urine Barbiturates Screen Neg (NEGATIVE) Urine Phencyclidine Screen Neg (NEGATIVE) Urine Amphetamines Screen Neg (NEGATIVE) Urine Benzodiazepines Screen Pos (NEGATIVE) Urine Cocaine Screen Neg (NEGATIVE) Urine Cannabinoids Screen Neg (NEGATIVE) Prothrombin Time 10.5 sec (9.3-11.8) Prothrombin Time INR 0.99 (0.9-1.15) Activated Partial Thromboplast Time 26.8 SEC (24.5-34.5) Hemoglobin A1c 5.3 % A1C (<5.7) Phosphorus Level 3.7 mg/dL (2.4-5.1) Magnesium Level 1.7 mg/dL (1.6-2.6) Direct Bilirubin < 0.1 mg/dL (<0.3) C-Reactive Protein High Sensitivity 1.34 mg/dL (<1.0) Triglycerides Level 133 mg/dL (< 150) Cholesterol Level 212 mg/dL (< 200) LDL Cholesterol 142 mg/dL (< 100) HDL Cholesterol 66 mg/dL (40-59) Lipase 44 U/L (12-53) Vitamin B12 Level 487 pg/mL (211-911) Vitamin D 25-Hydroxy 35.9 ng/mL (30.0-100) Thyroid Stimulating Hormone (TSH) 0.32 uIU/mL (0.55-4.78) Plasma/Serum Blood Alcohol < 3.0 mg/dL (<10) Other Laboratory Tests 07/20/25 13:14 Brief Hx & Hospital Course: Ms Cyr, 50-year-old female with a past medical history of asthma and anxiety who presented to the ER with a chief complaint of bilateral lower extremity and left hip pain and swelling. The patient reports that the pain began two months ago and has progressively worsened. She describes the pain as sharp and aggravated by movement. She has difficulty ambulating, resulting in a limp on the left side and eventual inability to walk without support due to decreased motor strength. She also reports associated hair loss and unintentional weight loss of 15 lbs over the past six months. 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 Imaging revealed bilateral avascular necrosis of the hips, lumbar degenerative disc disease and neural foraminal stenosis. Pulmonary embolism and DVT were ruled out given elevated D dimer and immobilization due to pain. EKG showed sinus tachycardia, PVCs and old anteroseptal infarct. Revealed nonobstructive nephrolithiasis. Pain was managed initially with IV Dilaudid later transitioned to oral oxycodone 15 mg b.i.d. and Flexeril. Orthopedic and spine surgery consultation recommended conservative management with outpatient follow up in physical therapy. On the day prior to discharge, the patient became verbally abusive towards staff and requested changing providers. The situation was deescalated professionally, and care continued without interruption. The patient was counseled and reassured and her concerns were acknowledged.. On the day of discharge to SNF, with the patient was hemodynamically stable, pain was managed. The patient verbalized understanding of the discharge plan and treatment. She was advised to follow up with PCP in [place] clinic in 1 week of discharge. Examination General Appearance: Alert, Oriented X3, Cooperative, Mild distress HEENT: Atraumatic, Mucous membranes moist/pink Respiratory: Clear to auscultation, Normal air movement, No added sounds Cardiovascular: Regular rate, Normal S1, Normal S2, No murmurs Abdominal/ : Active bowel sounds, Soft, no distention, no tenderness Extremities: No edema, Normal pulses, No tenderness/swelling Skin: No Significant rash, except past surgical scars Neuro: Normal speech, sensorimotor deficits none, all reflexes are present and normal, positive leg raise test, no lumbar spine tenderness, tender left hip joint Psych/Mental Status: Mental status NL, Mood NL Operations or Procedures PATIENT: JAMI CYR ACCT: [id number] UNIT: [id number] : 1975 LOC: [facility] ROOM / BED: [facility] / A AGE / SEX: 50 / F ADM STATUS: ADM IN SERVICE 2300 ORDERING PHYSICIAN: DYLAN FINN RESIDENT PROCEDURE(s): MSL - LUMBAR SPINE WO CONTRAST REASON: Low back pain ORDER NUMBER(s): [id number], ACCESSION NUMBER(s): [id number] PROCEDURE: MRI LUMBAR SPINE WO CONTRAST Indication: Low back pain COMPARISON: None TECHNIQUE: Multiplanar multisequence images of the the lumbar spine are obtained. FINDINGS: For the purpose of this examination, there are 5 lumbar vertebral body types counting from the lumbosacral junction. The lumbar vertebral body heights are maintained. Moderate multilevel disc space narrowing and desiccation most pronounced at L4-5 and L5-S1. Fatty and edematous endplate changes at L4-5. Conus terminates at the level of the L1 vertebral body level. L1-2: Tiny disc protrusion. Mild facet and flavum hypertrophy. No spinal canal, neural foraminal stenosis. L2-3: Tiny disc protrusion. Mild facet and flavum hypertrophy. No spinal canal, neural foraminal stenosis. L3-4: No disc protrusion. Mild facet and flavum hypertrophy. No spinal canal, neural foraminal stenosis. L4-5: 5 mm disc protrusion. Mild facet and flavum hypertrophy. No spinal canal stenosis. Moderate right and mild left neural foraminal stenosis. L5-S1: 3 mm disc protrusion. Mild facet and flavum hypertrophy. No spinal canal stenosis. Mild bilateral neural foraminal stenosis IMPRESSION: Moderate lumbar degenerative disc disease predominantly at L4-5 and L5-S1. Mm disc protrusion L4-5.3 mm disc protrusion L5-S1 Moderate right and mild left neural foraminal stenosis L4-5. Mild neural foraminal stenosis L5-S1. No high-grade spinal canal stenosis. PATIENT: JAMI CYR ACCT: [id number] UNIT: [id number] : 1975 LOC: [facility] ROOM / BED: [address] [place] [address] AGE / SEX: 50 / F ADM STATUS: ADM IN SERVICE 1421 ORDERING PHYSICIAN: BRENDON EID NP PROCEDURE(s): MNE - CERVICAL WO CONTRAST REASON: cervical radiculopathy ORDER NUMBER(s): [id number], ACCESSION NUMBER(s): [id number] PROCEDURE: MRI CERVICAL WO CONTRAST Indication: cervical radiculopathy COMPARISON: None TECHNIQUE: Multiplanar multisequence images of the the cervical spine are obtained. FINDINGS: The cervical vertebral body heights are maintained. Mild multilevel disc space narrowing and desiccation. No abnormal marrow edema. No prevertebral edema. Atlantooccipital, atlantoaxial articulations intact. C2-3: No spinal canal, neural foraminal stenosis. C3-4: No spinal canal stenosis. Wqdz-db-wawhdcwe right and mild left neural foraminal stenosis secondary to facet and uncovertebral hypertrophy. C4-5: No spinal canal stenosis. Jsae-jz-kttpbrcs right and mild left neural foraminal stenosis secondary to facet and uncovertebral hypertrophy. C5-6: No spinal canal stenosis. Minimal neural foraminal stenosis bilaterally. C6-7: No spinal canal stenosis. No neural foraminal stenosis. C7-T1: No spinal canal, neural foraminal stenosis IMPRESSION: Mild cervical degenerative disc disease. Tjab-mc-ngmfxacy neural foraminal stenosis C3-4 and C4-5. No significant spinal canal stenosis PATIENT: JAMI CYR ACCT: [id number] UNIT: [id number] : 1975 LOC: [facility] ROOM / BED: [facility] A AGE / SEX: 50 / F ADM STATUS: ADM IN SERVICE 1247 ORDERING PHYSICIAN: JAY WILSON RESIDENT PROCEDURE(s): RHIP - R HIP COMPLETE XRAY REASON: hip pain ORDER NUMBER(s): [id number], ACCESSION NUMBER(s): [id number] CLINICAL INDICATION: hip pain TECHNIQUE: 2 radiographic views of the right hip were obtained. Comparison: XY L HIP COMPLETE XRAY on DOS: 07/16/25 FINDINGS/IMPRESSION: Flattening of the left femoral head suggestive of avascular necrosis. ENT: JAMI CYR ACCT: [id number] UNIT: [id number] : 1975 LOC: [facility] ROOM / BED: [facility] / A AGE / SEX: 50 / F ADM STATUS: ADM IN SERVICE 1229 ORDERING PHYSICIAN: JAY WILSON PROCEDURE(s): LHIP - L HIP COMPLETE XRAY REASON: b/l hip pain ORDER NUMBER(s): [id number], ACCESSION NUMBER(s): [id number] CLINICAL INDICATION: b/l hip pain TECHNIQUE: 1 radiographic views of the pelvis and 2 views of the left hip were obtained. Comparison: XY R HIP COMPLETE XRAY on DOS: 07/16/25, MRI LUMBAR SPINE WO CONTRAST on DOS: 07/16/25 FINDINGS/IMPRESSION: Imaging of the bilateral femoral head suggestive of avascular necrosis PATIENT: JAMI CYR ACCT: [id number] UNIT: [id number] : 1975 LOC: [facility] ROOM / BED: [facility] / A AGE / SEX: 50 / F ADM STATUS: ADM IN SERVICE 1229 ORDERING PHYSICIAN: JAY WILSON RESIDENT PROCEDURE(s): CTACH - CT ANGIO CHEST CONTRAST REASON: well's score elevated, tachy, elevated d-dimer, ?PE ORDER NUMBER(s): [id number], ACCESSION NUMBER(s): [id number] Procedure: CT CT ANGIO CHEST CONTRAST Reason for study/Clinical History: well's score elevated, tachy, elevated d- dimer, PE Comparison Study: None Exam Date: 07/16/2025 01:20 PM Radiation Dose Information: CT Dose: CTDI volume is 6.28 mGy. Dose-length product is 2.89 mGy*cm Contrast: Type of contrast: Omnipaque 300 Contrast inject: 100 Contrast wasted:0 TECHNIQUE: Multidetector spiral CTA of the chest was performed of the chest with intravenous contrast. PULMONARY ANGIOGRAPHY PROTOCOL was utilized using a bolus- tracking technique centered on the main pulmonary artery. Axial, coronal and sagittal multiplanar and MIP reformats were performed. The dose indicators for CT are the volume Computed Tomography (CT) Dose Index (CTDIvol) and the Dose Length Product (DLP), and are measured in units of mGy and mGy-cm, respectively. These indicators are not patient dose, but values generated from the CT scanner acquisition factors. The report includes radiation exposure data for exposures received during this examination. FINDINGS: No acute pulmonary embolism. Lower Neck: Visualized portions of the thyroid gland are unremarkable. Aorta and Vasculature: Normal caliber of thoracic aorta. Lymph Nodes: No enlarged intrathoracic lymph nodes. Mediastinum: Heart size is normal. There is no pericardial effusion. The esophagus is unremarkable. Lungs: No focal consolidation, pleural effusion or significant pneumothorax. No suspicious pulmonary nodule or mass. Musculoskeletal: No acute osseous abnormality. Upper abdomen: Limited portions of the upper abdomen are unremarkable. IMPRESSION: 1. No acute pulmonary embolism. All CT scans at this medical facility are performed using dose modulation techniques as appropriate to a performed exam including the following: Automated exposure control was utilized; adjustment of the MA and/or KV according to patient size; and use of iterative reconstruction technique. PATIENT: JAMI CYR ACCT: [id number] UNIT: [id number] : 1975 LOC: ER ROOM / BED: / AGE / SEX: 50 / F ADM STATUS: REG ER SERVICE 1433 ORDERING PHYSICIAN: DIOGENES DENT MD PROCEDURE(s): BLDVT - BiLat Lower DVT REASON: leg swelling ORDER NUMBER(s): [id number], ACCESSION NUMBER(s): [id number] Bilateral lower extremity venous duplex Clinical History: leg swelling Comparison: None Technique: Duplex Doppler evaluation of the deep venous systems of both lower extremities from the common femoral veins to the popliteal veins including color Doppler and spectral/pulsed waveform analysis was performed. Findings: RIGHT SIDE: The common femoral vein demonstrates appropriate compressibility and waveform variability. There is compressibility/patency of the great saphenous vein at the proximal thigh. The femoral vein demonstrates appropriate compressibility and waveform variability. The deep femoral vein demonstrates appropriate compressibility and waveform variability. The popliteal vein demonstrates appropriate compressibility and waveform variability. There is normal compressibility at the tibioperoneal trunk. LEFT SIDE: The common femoral vein demonstrates appropriate compressibility and waveform variability. There is compressibility/patency of the great saphenous vein at the proximal thigh. The femoral vein demonstrates appropriate compressibility and waveform variability. The deep femoral vein demonstrates appropriate compressibility and waveform variability. The popliteal vein demonstrates appropriate compressibility and waveform variability. There is normal compressibility at the tibioperoneal trunk. Impression: No right or left femoropopliteal venous thrombosis. PATIENT: JAMI CYR ACCT: [id number] UNIT: [id number] : 1975 LOC: ER ROOM / BED: / AGE / SEX: 50 / F ADM STATUS: REG ER SERVICE 1433 ORDERING PHYSICIAN: DIOGENES DENT MD PROCEDURE(s): ABPL - CT AB PEL WO CON-NO ORAL OR IV REASON: low abd pain ORDER NUMBER(s): [id number], ACCESSION NUMBER(s): [id number] Exam: CT CT AB PEL WO CON-NO ORAL OR IV History: low abd pain Comparison Study: None Technique: Multidetector spiral CT of the abdomen was performed from lung bases to pubic symphysis. Imaging was performed without IV contrast. Axial, coronal and sagittal multiplanar reformats were obtained from the axial data set by the technologist. Radiation Dose : 1. Abdomen/Pelvis: CTDIvol 6.3 mGy, DLP 342 mGy*cm. Findings: Evaluation of solid organs is limited due to lack of intravenous contrast use. Lung Bases: No acute or significant lung base finding. Normal heart size. No pleural or pericardial effusion. Liver: The liver is normal in size. No focal lesions. Gallbladder and Biliary Tree: Unremarkable Spleen: Unremarkable Pancreas: The pancreas is grossly normal in appearance. Adrenal Glands: Unremarkable Kidneys: 2 mm stone is seen in the lower pole of the right kidney. No hydronephrosis. Bladder: Grossly unremarkable for degree of distention. Bowel: The stomach is grossly normal in appearance. Small bowel and colon are normal in caliber and distribution. The appendix is not visualized; however, no secondary findings of acute appendicitis identified. Moderate to large colonic stool burden. Ascites: Absent Lymphadenopathy: No mesenteric, retroperitoneal or periportal lymphadenopathy. Abdominal Wall and Mesentery: Unremarkable. Vasculature: The visualized abdominal aorta is normal in size and caliber. Evaluation of abdominal and pelvic vessels is limited due to lack of intravenous contrast. Pelvic Organs: Unremarkable Musculoskeletal: No aggressive focal bony lesions, acute fractures or dislocation. IMPRESSION: 1. Nonobstructing right renal stone. 2. Moderate to large colonic stool burden. Radiation optimization: All CT scans at this facility use at least one of these dose optimization techniques: automated exposure control mA and/or kV adjustment per patient size (includes targeted exams where dose is matched to clinical indication) or iterative reconstruction. Condition at Discharge: Stable Final Diagnosis/Problems List Acute untractable hip pain due to below 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 Tlrr-uk-pvlruiib neural foraminal stenosis C3-4 and C4-5 DVT ruled out PE ruled out Elevated D-dimer Nephrolithiasis - non obstructive Hyperlipidemia Transaminitis Polysubstance abuse CARMENCITA likely due to [facility] Discharge Disposition: Alf Facility Discharge Instruct/Medications Diet: Consistent carbohydrate Activity: No Restrictions, As Tolerated Follow Up/Referral: Follow up with orthopedics in the outpatient clinic for pre-op clearance for surgery within one week Follow up in the d/c clinic in one week Medications: As per EMR Scheduled PRN Oxycodone W/ Acetaminophen (Percocet 5/325MG), 1 TAB PO QID PRN Miscellaneous Medications [Albuterol Sul0.083 %], %, (Reported) [Alprazolam2 Mg], MG, (Reported) [Amphetamine/Dex30 Mg], MG, (Reported) [Diazepam5 Mg], MG, (Reported) [Hydrocodone/Ace1 Tab], TAB, (Reported) [Proair Hfa 90 Mcg Inhaler], (Reported) [Tramadol Hcl50 Mg], MG, (Reported) Discharge Statement: "Patient was advised to return to the ER or call 911 if any headaches, dizziness, shortness of breath, chest pain, abdominal pain, bleeding, fevers, or worsening of medical condition. Patient was counseled about treatment plan, medications, possible side effects, patientverbalized understanding. All questions were answered to the best of my ability. This discharge took greater then 30 minutes in planning, reviewing documentation, counseling the patient, and discussing with other team members." DME: Diagnosis: Bilateral Hip avascular necrosis ASSESSMENT ASSESSMENT Assessment Bilateral avascular necrosis of hip L4-L5, L5-S1 disc protrusion lumbar degenerative disc disease L4-5 and L5-S1. Moderate right and mild left neural foraminal stenosis L4-5 Date of Service: Jul 22, 2025 Billing Provider: AUGUSTINA FERRO MD Common Visit Codes: 06375-CBQ/OBS DISCH DAY >30min WAQAS NGUYEN RESIDENT Jul 23, 2025 06:23 DOUG YANEZ RESIDENT Jul 23, 2025 16:45 AUGUSTINA FERRO MD Jul 24, 2025 21:13
== END 2025-07-22 21:22 | DRG 347 ==
LOC: ER 14:14 → OVERFLOW 22:13 → WEST WING 23:14
PROVIDERS: ADMIT Internal Medicine Geriatric Medicine; ATTEND Internal Medicine Geriatric Medicine
DX: M51.369 Other intervertebral disc degeneration, lumbar region without mention of lumbar back pain or lower extremity pain (principal); N17.0 Acute kidney failure with tubular necrosis; M87.851 Other osteonecrosis, right femur; M48.062 Spinal stenosis, lumbar region with neurogenic claudication; Z59.00 Homelessness unspecified; E83.52 Hypercalcemia; M51.26 Other intervertebral disc displacement, lumbar region; N20.0 Calculus of kidney; G89.29 Other chronic pain; M51.379 Other intervertebral disc degeneration, lumbosacral region without mention of lumbar back pain or lower extremity pain; F17.210 Nicotine dependence, cigarettes, uncomplicated; F41.9 Anxiety disorder, unspecified; J45.909 Unspecified asthma, uncomplicated; E78.5 Hyperlipidemia, unspecified; R74.01 Elevation of levels of liver transaminase levels; M87.852 Other osteonecrosis, left femur; M50.10 Cervical disc disorder with radiculopathy, unspecified cervical region; M48.07 Spinal stenosis, lumbosacral region; Z88.3 Allergy status to other anti-infective agents; Z79.899 Other long term (current) drug therapy
CPT/HCPCS: 36415; 71275; 72141; 72148; 73502; 74176; 80048; 80053; 80061; 80074; 80076; 80307; 80320; 81001; 81025; 82306; 82607; 83036; 83690; 83735; 83970; 84100; 84439; 84443; 84480; 85025; 85379; 85610; 85730; 86141; 86703; 86780; 93005; 93970; 96374; 96375; 97110; 97116; 97163; G0378; J2405; J2470; J3480